=== PATIENT | female | born 1935 | race Caucasian/White ===

== ENCOUNTER → 2016-10-27 | Outpatient (CLI) | payer MEDICARE, OTHER ==
[~2016-10-27] MED LIST: AMLO5TAB2 PO; ASCO-296 PO; BACL20TA71 PO; CALC-652 PO; CELE200C PO; CHOL10003 PO; FISH1CAP29 PO; HYOS0.122 PO; IOHEXOL 300 MG/ML 75ml INJECTION ONE; LEVO25TA41 PO; LOSA1TAB21 PO; LYSI500C PO; METO5TAB2 PO; MORP15TA PO; MORP30TA95 PO; NORMAL SALINE 100 ML ONE; OMEP40CA52 PO; POTA20TA68 PO; RED600CA2 PO; SALINE FLUSH 10ml SYRINGE ONE; SENN1TAB7 PO; SERT25TA5 PO; VITA1CAP64 PO; [UNRECOGNIZED DRUG - CODE] BOTH EYES
[2016-10-27 13:55] LABS: ANION GAP 7 MEQ/L (5-15); BUN/CREATININE RATIO 20 RATIO (6-26); CALCIUM 9.2 MG/DL (8.4-10.2); CHLORIDE 104 MEQ/L (98-107); CO2 - CARBON DIOXIDE 31 MEQ/L (22-30); CREATININE 0.8 MG/DL (0.7-1.2); GLOMERULAR FILTRATION RATE 69; GLUCOSE 104 MG/DL (65-110); SODIUM 142 MEQ/L (134-144)
--- NOTE | 2016-10-27 15:28 | DI ---
Indication: ITS.REASON: N28.9 Disorder of kidney and ureter, unspecified PROCEDURE: CT RENAL W/WO CONTRAST: Encounter: Subsequent Comparison: CT abdomen dated April 12, 2016 and October 02, 2015 Technique: Axial CT images were performed through the abdomen and pelvis before and after the administration of intravenous contrast. Delayed postcontrast images were also performed. Coronal and sagittal 2-dimensional reformats. Automated Exposure Control and Iterative Reconstruction dose reducing techniques were utilized. Contrast: Omnipaque 300 75 mL Findings: Coronary artery calcifications. Noncontrast images show clear lung bases. No renal stone disease. No definite ureteral stone. Numerous pelvic phleboliths. Postcontrast images show normal enhancement of the liver. Mild intrahepatic bile duct dilatation likely related to age and prior cholecystectomy. The spleen, pancreas and adrenal glands are within normal limits. The right kidney enhances normally. There is a small exophytic enhancing mass arising from the medial inferior aspect of the left kidney measuring 1.7 cm in craniocaudal dimension on coronal image #28. This is stable dating back to October 02, 2015. No abdominal or pelvic lymphadenopathy. Bladder is grossly normal. Uterus is absent. No free fluid. No evidence of a bowel obstruction. Bone windows show degenerative changes and scoliosis in the spine. Delayed postcontrast images show symmetric excretion of contrast by both renal collecting systems. No filling defects or masses appreciated. The ureters are normal in course and caliber. The urinary bladder appears normal. Impression: Stable size and appearance of the presumed left renal cell carcinoma. No evidence for metastatic disease in the abdomen or pelvis. .
== END ==
LOC: IMA 13:18
PROVIDERS: ATTEND Urology
DX: N28.89 Other specified disorders of kidney and ureter (principal); N28.9 Disorder of kidney and ureter, unspecified
CPT/HCPCS: 36415; 74178; 80048; J7050; Q9967

== ENCOUNTER → 2016-12-01 | Outpatient (CLI) | payer MEDICARE, OTHER ==
[~2016-12-01] MED LIST changes: +CIPR-280 PO; +HYDR2TAB7 PO; -IOHEXOL 300 MG/ML 75ml INJECTION ONE; +LOSA100T44 PO; -NORMAL SALINE 100 ML ONE; +RANI150T7 PO; -SALINE FLUSH 10ml SYRINGE ONE
== END ==
LOC: LABN 11:29
PROVIDERS: ATTEND Nurse Practitioner
DX: R19.7 Diarrhea, unspecified (principal)
CPT/HCPCS: 87507

== ENCOUNTER 2016-12-04 16:31 | Observation (INO) | payer MEDICARE, OTHER ==
[~2016-12-04] VITALS: Ht 152.4 cm; Wt 62.6 kg
[~2016-12-04 16:31] MED LIST changes: -CIPR-280 PO; -HYDR2TAB7 PO; -LOSA100T44 PO; -RANI150T7 PO
--- OUTSIDE RECORDS SUMMARY | 2016-12-04 16:34 | XMS REPORT | Continuity of Care Document ---
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 Visit Date/Time Discharge Status Pt. Type Provider Facility Loc./Unit Complaint [id number] 03/01/2012 09:45:00 2011 13:45:00 DIS Outpatient Girma Hallman MD [facility] on [address]
--- OUTSIDE RECORDS SUMMARY | 2016-12-04 16:34 | XMS REPORT | Referral Summary ---
Author Organization Unknown Address Unknown Phone Unavailable Care Team Providers Care Performance Makeup Artist Name Role Phone Omkar Scanlon Primary Care Physician [phone] Encounter VC Date(s): 09/29/14 - 09/29/14 [facility], [address] [place] [address] Discharge Diagnosis: Depression Discharge Diagnosis: GERD without esophagitis Discharge Diagnosis: Benign essential HTN Discharge Diagnosis: Constipation Discharge Diagnosis: Insomnia Discharge Diagnosis: Acute diarrhea Discharge Diagnosis: Restless legs syndrome (RLS) Discharge Diagnosis: Adult hypothyroidism Discharge Disposition: Home or Self Care Attending Physician: Toribio Brito MD Admitting Physician: Toribio Brito MD Referring Physician: Pepito Scanlon Vital Signs Most recent to 1 oldest [Reference Range]: Temperature Tympanic 36.8 degC [36.6-38.1 degC] (09/29/14 7:25 PM) Apical Heart Rate 76 bpm [60-100 bpm] (09/29/14 7:25 PM) Blood Pressure 138/82 mmHg [90-140/60-90 mmHg] (09/29/14 7:25 PM) Most recent to 1 oldest [Reference Range]: SpO2 97 % (09/29/14 7:25 PM) Problem List Condition Effective Dates Status Health Status Informant Constipation(Confirm Active ed) Depression(Confirmed Active ) GERD without Active esophagitis(Confirme d) Adult Active hypothyroidism(Confi rmed) Allergies, Adverse Reactions, Alerts Substance Reaction Severity Status Flagyl Active Medications Ambien 5 mg oral tablet 1 tabs, Oral, q12hr, as needed for sleep, # 2 tabs, 0 Refill(s) Start Date: 09/29/14 Stop Date: 09/30/14 Status: Ordered amLODIPine 5 mg oral tablet 1 tabs, Oral, Daily, # 30 tabs, 0 Refill(s) Start Date: 09/29/14 Status: Ordered ascorbic acid 0 Refill(s) Start Date: 09/29/14 Status: Ordered Aspirin Low Dose mg, Oral, Daily, 0 Refill(s) Start Date: 09/29/14 Status: Ordered baclofen 20 mg oral tablet 1 tabs, Oral, TID, # 270 tabs, 0 Refill(s) Start Date: 09/29/14 Status: Ordered Calcium 600+D tabs, Oral, TID, 0 Refill(s) Start Date: 09/29/14 Status: Ordered CeleBREX 200 mg oral capsule 1 caps, Oral, Daily, # 30 caps, 0 Refill(s) Start Date: 09/29/14 Status: Ordered docusate sodium 0 Refill(s) Start Date: 09/29/14 Status: Ordered Fish Oil 500 mg oral capsule 2 caps, Oral, BID, # 130 caps, 0 Refill(s) Start Date: 09/29/14 Status: Ordered levothyroxine 25 mcg (0.025 mg) oral tablet 1 tabs, Oral, Daily, # 30 tabs, 0 Refill(s) Start Date: 09/29/14 Status: Ordered losartan-hydrochlorothiazide 100 mg-12.5 mg oral tablet 1 tabs, Oral, Daily, # 30 tabs, 0 Refill(s) Start Date: 09/29/14 Status: Ordered lysine 500 mg oral tablet 1 tabs, Oral, Daily, # 100 tabs, 0 Refill(s) Start Date: 09/29/14 Status: Ordered morphine 15 mg oral tablet 1 tabs, Oral, q6hr, as needed for pain, 0 Refill(s) Start Date: 09/29/14 Status: Ordered omeprazole 20 mg oral delayed release tablet tabs, Oral, Daily, 0 Refill(s) Start Date: 09/29/14 Status: Ordered sertraline 50 mg oral tablet 1 tabs, Oral, Daily, # 30 tabs, 0 Refill(s) Start Date: 09/29/14 Status: Ordered Results No data available for this section Immunizations No data available for this section Procedures No data available for this section Social History Social History Type Response Smoking Status Never smoker Assessment and Plan Extracted from: Title: Ambulatory Patient Education Author: Toribio Brito MD Date: 09/29/14 Family Medicine Diarrhea Diarrhea is frequent loose and watery bowel movements. It can cause you to feel weak and dehydrated. Dehydration can cause you to become tired and thirsty, have a dry mouth, and have decreased urination that often is dark yellow. Diarrhea is a sign of another problem, most often an infection that will not last long. In most cases, diarrhea typically lasts 23 days. However, it can last longer if it is a sign of something more serious. It is important to treat your diarrhea as directed by your caregive to lessen or prevent future episodes of diarrhea. CAUSES Some common causes include: Gastrointestinal infections caused by viruses, bacteria, or parasites. Food poisoning or food allergies. Certain medicines, such as antibiotics, chemotherapy, and laxatives. Artificial sweeteners and fructose. Digestive disorders. HOME CARE INSTRUCTIONS Ensure adequate fluid intake (hydration ): have 1 cup (8 oz) of fluid for each diarrhea episode. Avoid fluids that contain simple sugars or sports drinks , fruit juices, whole milk products, and sodas. Your urine should be clear or pale yellow if you are drinking enough fluids. Hydrate with an oral rehydration solution that you can purchase at pharmacies, retail stores, and online. You can prepare an oral rehydration solution at home by mixing the following ingredients together: tsp table salt. tsp baking soda. tsp salt substitute containing potassium chloride. 1 tablespoons sugar. 1 L (34 oz) of water. Certain foods and beverages may increase the speed at which food moves through the gastrointestinal (GI) tract. These foods and beverages should be avoided and include: Caffeinated and alcoholic beverages. High-fiber foods, such as raw fruits and vegetables, nuts, seeds, and whole grain breads and cereals. Foods and beverages sweetened with sugar alcohols, such as xylitol, sorbitol, and mannitol. Some foods may be well tolerated and may help thicken stool including: Starchy foods, such as rice, toast, pasta, low-sugar cereal, oatmeal, grits, baked potatoes, crackers, and bagels. Bananas. Applesauce. Add probiotic-rich foods to help increase healthy bacteria in the GI tract , such as yogurt and fermented milk products. Wash your hands well after each diarrhea episode. Only take [id number] or prescription medicines as directed by your caregiver. Take a warm bath to relieve any burning or pain from frequent diarrhea episodes. SEEK IMMEDIATE MEDICAL CARE IF: You are unable to keep fluids down. You have persistent vomiting. You have blood in your stool, or your stools are black and tarry. You do not urinate in 68 hours, or there is only a small amount of very dark urine. You have abdominal pain that increases or localizes. You have weakness, dizziness, confusion, or lightheadedness. You have a severe headache. Your diarrhea gets worse or does not get better. You have a fever or persistent symptoms for more than 23 days. You have a fever and your symptoms suddenly get worse. MAKE SURE YOU: Understand these instructions. Will watch your condition. Will get help right away if you are not doing well or get worse. Document Released: 07/06/2003 Document Revised: 07/02/2013 Document Reviewed: [employer] Patient Information 2014 xiao qu wu you. No follow up information was provided. Extracted from: Title: Office Visit Note Author: oTribio Brito MD Date: 09/29/14 Assessment/Plan Acute diarrhea Stop all otc meds for now.Refused ER. Adult hypothyroidism This issue is stable and appropriate refills, lab, and f/ u have been discussed. Benign essential HTN This issue is stable and appropriate refills, lab, and f/ u have been discussed. Constipation Stop all otc meds. Should consider lab if not improving. Check TSH, etc, discussed. Depression This issue is stable and appropriate refills, lab, and f/u have been discussed. GERD without esophagitis This issue is stable and appropriate refills, lab, and f/u have been discussed. Insomnia Insists on meds. High risk for falling. Trial of ambien 5mg po q12 prn total of only two pills given. Family should stay with her at her apartment. To ER if worse in any way. Restless legs syndrome (RLS) Insisting on meds. RLS started after otc tylenol pm. Insists on meds to help her sleep. The patient has family members present who are agreeable with today's plan and have no additional concerns or requests. Orders: zolpidem, 1 tabs, Oral, q12hr, as needed for sleep, # 2 tabs, 0 Refill (s)
--- OUTSIDE RECORDS SUMMARY | 2016-12-04 16:34 | XMS REPORT | Continuity of Care Document ---
Author Author [facility] Organization [facility] Address Unknown Phone Unavailable Support Name Relationship Address Phone HAL VYAS MD Caregiver [address] [place] [phone] LEIGHTON STOCK MD Caregiver [address] [place] [address] [place] [phone] ABBE WIGGINS Next Of Kin [address] [place], [place] [id number] Insurance Providers Payer Name Policy Number Subscriber Name Relationship Medicare [id number] Opal Welch 16 Self [place] [id number] Opal Welch 18 Self Advance Directives Directive Response Recorded Date/Time Advanced Directives Type None 12/15/13 11:17am Ordered Resuscitation Status Full Code 12/16/13 5:21pm Problems Medical Problems Problem Onset Date Status Diplopia Unknown Active Hypertension Unknown Active Diplopia Unknown Active Medications Medication Dose Route Sig Days/Qty Instructions Order Date Discontinued Date Status Olmesartan/Hydrochlorothiazide 2 Tab PO DAILY 11/18/08 03/16/09 Discontinued Fish Oil/[place]-3 Fatty Acids 1 Cap PO TWICE A DAY 03/17/09 Active Potassium Chloride 20 Meq PO DAILY 11/18/08 03/16/09 Discontinued Levothyroxine Sodium 25 Mcg PO DAILY 03/17/09 Active Lysine 500 Mg PO DAILY 03/17/09 Active Hydrocodone Bit/Acetaminophen 1 Tab PO BID PRN 11/18/08 03/16/09 Discontinued Magnesium 400 Mg PO DAILY 03/17/09 03/31/11 Discontinued Esomeprazole Mag Trihydrate 40 Mg PO DAILY 11/18/08 03/16/09 Discontinued Zinc 50 Mg PO DAILY 03/17/09 03/31/11 Discontinued Amlodipine Besylate 5 Mg PO BEDTIME 03/17/09 02/07/12 Discontinued Guar Gum 1 G PO BEDTIME 03/17/09 03/31/11 Discontinued Tetrahydrz/Dext 70/Peg 400/Pvp 1-2 OP NEEDED 03/17/09 Active Hydrocodone Bit/Acetaminophen 1 Tab PO NEEDED 03/17/09 03/31/11 Discontinued [Vitamin D] PO DAILY 03/17/09 11/13/11 Discontinued Ascorbic Acid 500 Mg PO TWICE A DAY 03/17/09 Active Pantoprazole Sodium 40 Mg PO DAILY 03/17/09 03/31/11 Discontinued [Pristiq] 50 Mg PO DAILY 03/17/09 11/13/11 Discontinued Meloxicam 7.5 Mg PO TWICE A DAY 03/17/09 Active Lecithin 400 Mg PO DAILY 03/17/09 11/13/11 Discontinued Losartan/Hydrochlorothiazide 1 Tab PO DAILY 03/17/09 Active Fentanyl 1 Patch TD Q 72 HRS 03/17/09 03/31/11 Discontinued Omeprazole 40 Mg PO DAILY 03/31/11 Active [morphine] 03/31/11 11/13/11 Discontinued Red Yeast Rice Extract 600 Mg PO DAILY 11/13/11 Active Baclofen 20 Mg PO THREE TIMES A DAY 11/13/11 Active Hydromorphone Hcl 2 Mg PO TWICE A DAY 11/14/11 Active Sertraline Hcl 25 Mg PO BEDTIME 11/14/11 Active Potassium Chloride 20 Meq PO TWICE A DAY 11/14/11 Active Cholecalciferol 1,000 Unit PO DAILY 11/14/11 Active Docusate Sodium 100 Mg PO DAILY 11/14/11 Active Morphine Sulfate 15 Mg PO FOUR TIMES DAILY 11/14/11 Active Amlodipine Besylate 10 Mg PO BEDTIME 02/07/12 Active Vitamin B Complex 1 Cap PO DAILY 12/15/13 Active Calcium Carbonate 1 Tab PO THREE TIMES A DAY 12/15/13 Active Celecoxib 1 Cap PO TWICE A DAY 06/27/14 Active Social History Social History Problem Response Recorded Date/Time Smoking Status Never smoker 12/15/2013 11:17am Chewing Tobacco Status No 12/15/2013 11:17am Hx Substance Use No 06/27/2014 1:02pm Hx Alcohol Use No 06/27/2014 1:02pm Has the pt used tobacco in the last 12 months No 12/15/2013 11:17am Query Response Start Date Stop Date Smoking Status Never smoker Hospital Discharge Instructions No hospital discharge instructions. Plan of Care No plan of care. Functional Status Query Response Date Recorded Physical Hygiene Self June 27, 2014 1:02pm Disabilities Visual June 27, 2014 1:02pm Devices Used Glasses June 27, 2014 1:02pm Dressing Self June 27, 2014 1:02pm Ambulation Self June 27, 2014 1:02pm Diet Self June 27, 2014 1:02pm Mental Status Alert Oriented June 27, 2014 1:02pm Disabilities Visual June 27, 2014 1:02pm Devices Used Glasses June 27, 2014 1:02pm Physical Hygiene Self June 27, 2014 1:02pm Dressing Self June 27, 2014 1:02pm Ambulation Self June 27, 2014 1:02pm Diet Self June 27, 2014 1:02pm Allergies, Adverse Reactions, Alerts Allergen Type Severity Reaction Status Last Updated Metronidazole Allergy Unknown Active 06/27/14 Immunizations Name Given Type Hx Influenza Vaccination Y 05/12 Historical Hx Pneumococcal Vaccination Y 2005 Historical Hx Tetanus, Diptheria, Pertussis Y 2009 Historical Hx Influenza Vaccination Y 05/12 Historical Hx Tetanus, Diptheria, Pertussis Y 2009 Historical Vital Signs Acute Vital Signs Vital Response Date/Time Temperature (Fahrenheit) 98.6 deg F (96.8 - 99.1) Temperature (Calculated Celsius) 37.09742 degrees C (36.0 - 37.3) Pulse Rate (adult) 64 bpm (60 - 100) Respiratory Rate 16 breaths/min (10 - 20) O2 Sat by Pulse Oximetry 94 % (90 - 100) Blood Pressure 168/73 mm Hg Height 5 ft 0 in Weight 146 lb Body Mass Index 28.0 kg/m^2 Results Test Source Date Result Interp. Ref. Range Comments Activated Partial Thromboplast Time February 06, 2012 4:48pm 33.1 SEC N 24- 36 Alanine Aminotransferase (ALT/SGPT) June 27, 2014 1:30pm 27 U/L N 9- 52 Albumin June 27, 2014 1:30pm 3.7 G/DL N 3.5-5.0 Albumin/Globulin Ratio June 27, 2014 1:30pm 1.0 RATIO L 1.1-2.2 Alkaline Phosphatase June 27, 2014 1:30pm 71 U/L N 38-126 Amylase Level March 31, 2011 1:55am 87 U/L N 30-110 Anion Gap June 27, 2014 1:30pm 5 MEQ/L N 5-15 Aspartate Amino Transf (AST/SGOT) June 27, 2014 1:30pm 28 U/L N 14- 36 B-Type Natriuretic Peptide May 11, 2009 9:55pm 30 PG/ML N 15-100 BUN/Creatinine Ratio June 27, 2014 1:30pm 23 RATIO N 6-26 Basophils # (Auto) June 27, 2014 1:30pm 0.0 T/MM3 N 0-0.2 Basophils (%) (Auto) June 27, 2014 1:30pm 0.5 % N 0-2 Blood Urea Nitrogen June 27, 2014 1:30pm 14.0 MG/DL N 7-17 Calcium Level June 27, 2014 1:30pm 9.3 MG/DL N 8.4-10.2 Calculated Osmolality June 27, 2014 1:30pm 265 MOSM/KG N 261-280 Carbon Dioxide Level June 27, 2014 1:30pm 27 MEQ/L N 22-30 Chloride Level June 27, 2014 1:30pm 105 MEQ/L N 98-107 Conjugated Bilirubin February 06, 2012 4:48pm 0.00 MG/DL N 0.00-0.30 Creatine Kinase MB March 31, 2011 5:31pm 2.6 NG/ML N 0-3.4 Creatinine June 27, 2014 1:30pm 0.6 MG/DL L 0.7-1.2 Eosinophils # (Auto) June 27, 2014 1:30pm 0.1 T/MM3 N 0-0.5 Eosinophils (%) (Auto) June 27, 2014 1:30pm 1.4 % N 0-4 Free Thyroxine October 19, 2008 10:24pm 1.14 NG/DL N 0.78-2.19 Globulin June 27, 2014 1:30pm 3.7 G/DL H 2.4-3.6 Glucose Level June 27, 2014 1:30pm 98 MG/DL N 65-110 Hematocrit June 27, 2014 1:30pm 38.1 % N 36-46 Hemoglobin June 27, 2014 1:30pm 12.5 GM/DL N 12-16 Ionized Calcium (Measured) November 14, 2011 10:00am 1.11 MMOL/L L 1.12- 1.32 Lipase March 31, 2011 1:55am 42 U/L N 23-300 Lymphocytes # (Auto) June 27, 2014 1:30pm 1.4 T/MM3 N 1-4.8 Lymphocytes (%) (Auto) June 27, 2014 1:30pm 38.9 % N 23-45 Mean Corpuscular Hemoglobin June 27, 2014 1:30pm 32.6 UUG N 26-34 Mean Corpuscular Hemoglobin Concent June 27, 2014 1:30pm 32.8 GM/DL N 31-37 Mean Corpuscular Volume June 27, 2014 1:30pm 99.2 UM3 N 80-100 Mean Platelet Volume June 27, 2014 1:30pm 10.5 UM3 N 9.4-12.4 Monocytes # (Auto) June 27, 2014 1:30pm 0.2 T/MM3 N 0-0.8 Monocytes (%) (Auto) June 27, 2014 1:30pm 6.5 % N 0-9.0 Neutrophils # (Auto) June 27, 2014 1:30pm 2.0 T/MM3 N 1.8-7.7 Neutrophils (%) (Auto) June 27, 2014 1:30pm 52.7 % N 33-66 Platelet Count June 27, 2014 1:30pm 152 T/MM3 N 130-400 Potassium Level June 27, 2014 1:30pm 4.2 MEQ/L N 3.6-5 Prothromb Time International Ratio February 06, 2012 4:48pm 0.97 N 0.86- 1.10 THERAPUTIC RANGE=2.00-3.00 FOR ANTI-THROMBOSIS THERAPUTIC RANGE=2.50- 3.50 FOR IMPLANTED VALVE RDW Standard Deviation June 27, 2014 1:30pm 46.5 FL N 36.9-50.2 Red Blood Count June 27, 2014 1:30pm 3.84 M/MM3 L 4.00-5.20 Sodium Level June 27, 2014 1:30pm 137 MEQ/L N 134-144 Tests Not Done October 19, 2008 10:24pm Not done - Has specimen been collected/obtained? Y Thyroid Stimulating Hormone (TSH) June 27, 2014 1:30pm 0.59 MIU/L N 0.47-4.68 Total Bilirubin June 27, 2014 1:30pm 0.50 MG/DL N 0.20-1.30 Total Protein June 27, 2014 1:30pm 7.4 G/DL N 6.3-8.2 Troponin I February 07, 2012 5:00am < 0.012 ng/ml 0-0.12 Unconjugated Bilirubin February 06, 2012 4:48pm 0.00 MG/DL N 0.00-1.10 Urine Bilirubin February 06, 2012 6:15pm Negative - Has specimen been collected/obtained? Y Urine Blood February 06, 2012 6:15pm Negative - Has specimen been collected/obtained? Y Urine Collection Type February 06, 2012 6:15pm Voided - Has specimen been collected/obtained? Y Urine Color February 06, 2012 6:15pm Yellow - Has specimen been collected /obtained? Y Urine Glucose (UA) February 06, 2012 6:15pm Negative - Has specimen been collected/obtained? Y Urine Ketones February 06, 2012 6:15pm Negative - Has specimen been collected/obtained? Y Urine Leukocyte Esterase February 06, 2012 6:15pm Negative - Has specimen been collected/obtained? Y Urine Nitrite February 06, 2012 6:15pm Negative - Has specimen been collected/obtained? Y Urine Protein February 06, 2012 6:15pm Negative - Has specimen been collected/obtained? Y Urine Specific [place] February 06, 2012 6:15pm 1.010 L - Has specimen been collected/obtained? Y Urine Turbidity February 06, 2012 6:15pm Clear - Has specimen been collected/obtained? Y Urine Urobilinogen February 06, 2012 6:15pm Normal EU/DL - Has specimen been collected/obtained? Y Urine pH February 06, 2012 6:15pm 8.0 - Has specimen been collected/ obtained? Y White Blood Count June 27, 2014 1:30pm 3.7 T/MM3 L 4.5-11.0 Chemistry Specimen Hemolysis June 27, 2014 1:30pm 20 N 0-25 0-25: No Hemolysis.26-70: Slight Hemolysis - can falsely elevate K and Urine Protein. 71-285: Moderate Hemolysis - can falsely elevate K, Troponin I, CA 19-9, PTH, CSF GLucose, and Urine Protein, and can falsely decrease Phenytoin. 286-999: Gross Hemolysis - can falsely elevate K, Troponin I, CA 19-9, PTH, CSF Glucose, and Urine Protine, and can falsely decrease Phenytoin. Recommend specimen recollection. EKG May 11, 2009 9:48pm Complete - Turbidity June 27, 2014 1:30pm < 20 0-20 Glomerular Filtration Rate Calc June 27, 2014 1:30pm 96 - Immature Granulocyte # (Auto) June 27, 2014 1:30pm 0.00 T/MM3 N 0.00 -0.03 Immature Granulocyte % (Auto) June 27, 2014 1:30pm 0.0 % N 0.0-0.5 Icterus Index June 27, 2014 1:30pm < 2 0-7 TX-Mrf-D-Type Natriuretic Peptide February 06, 2012 4:48pm 401 PG/ML H 0- 175 Rule in cut points: <50 years old=450; 50-75 years old=900; >75 years old=1800; When utilizing ProBNP rule-in cut points, adjustment for impaired renal function is typically not required. Urine Microscopic Not Indicated February 06, 2012 6:15pm Not indicated - Has specimen been collected/obtained? Y Helicobacter pylori Rapid Urease Gastric Biopsy December 17, 2013 7:52am Procedures No known history of procedures. Encounters Encounter Location Date/Time Departed Emergency Room [facility] 06/27/14 12:39pm Recent Diagnosis
--- OUTSIDE RECORDS SUMMARY | 2016-12-04 16:42 | XMS REPORT | Continuity of Care Document ---
Author Author [facility] Organization [facility] Address Unknown Phone Unavailable Support Name Relationship Address Phone HAL VYAS MD Caregiver [address] [place] [phone] LEIGHTON STOCK MD Caregiver [address] [place] [address] [place] [phone] ABBE WIGGINS Next Of Kin [address] [place], [place] [id number] Insurance Providers Payer Name Policy Number Subscriber Name Relationship Medicare [id number] Opal Welch 18 Self [place] [id number] Opal Welch 16 Self Advance Directives Directive Response Recorded Date/Time Advanced Directives Type None 12/15/13 11:17am Ordered Resuscitation Status Full Code 12/16/13 5:21pm Problems Medical Problems Problem Onset Date Status Diplopia Unknown Active Hypertension Unknown Active Diplopia Unknown Active Medications Medication Dose Route Sig Days/Qty Instructions Order Date Discontinued Date Status Olmesartan/Hydrochlorothiazide 2 Tab PO DAILY 11/18/08 03/16/09 Discontinued Fish Oil/[place]-3 Fatty Acids 1 Cap PO TWICE A [...] F (96.8 - 99.1) Temperature (Calculated Celsius) 37.58241 degrees C (36.0 - 37.3) Pulse Rate [...] Has specimen been collected/obtained? Y Urine Specific [place] February 06, 2012 6:15pm 1.010 L - [...] June 27, 2014 1:30pm < 2 0-7 AK-Rlo-V-Type Natriuretic Peptide February 06, 2012 4:48pm 401 [...] Encounters Encounter Location Date/Time Departed Emergency Room [facility] 06/27/14 12:39pm Recent Diagnosis
--- OUTSIDE RECORDS SUMMARY | 2016-12-04 16:42 | XMS REPORT | Continuity of Care Document ---
Author Author [facility] Organization [facility] Address Unknown Phone Unavailable Allergies Active Description Code Type Severity Reaction Onset Reported/Identified Relationship to Patient Clinical Status Yes Flagyl Drug Allergy Eczema (rash) 03/01/2012 Medications Problems Date Dx Coded Attending Type Code Diagnosis Diagnosed By 03/01/2012 Girma Hallman MD Final 244.9 HYPOTHYROIDISM NOS 03/01/2012 Girma Hallman MD Final 401.1 BENIGN HYPERTENSION 03/01/2012 Girma Hallman MD Final 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 Visit Date/Time Discharge Status Pt. Type Provider Facility Loc./Unit Complaint [id number] 03/01/2012 09:45:00 2011 13:45:00 DIS Outpatient Girma Hallman MD [facility] on [address]
--- NOTE | 2016-12-04 16:44 | ERPDOC ---
Departure Disposition Decision Date: December 04, 2016 Disposition Decision Time: 19:30 Disposition: 02 TO OBS [facility] [place] Impression Impression Impression: Primary Impression: Fall Encounter type: initial encounter Qualified Codes: W19.XXXA - Unspecified fall, initial encounter Additional Impressions: Finger laceration Encounter type: initial encounter Qualified Codes: S61.219A - Laceration without foreign body of unspecified finger without damage to nail, initial encounter Confusion Severity: Moderate Condition: Stable Seen By: Mid-level only Patient Instructions: Finger Laceration (ED) Problems/Meds/Labs Reviewed?: Yes Medications reviewed and manag: Yes Additional Instructions: Have the sutures taken out in 7-10 days with your primary care provider. Your labs and CT today are normal. Continue with your home medications as prescribed. If you have any other issues/concerns then follow up with your primary care provider. Follow up care ordered?: Yes Mental Status: Alert HPI - Abdominal Pain General Chief Complaint: Nausea,Vomiting,Diarrhea Stated Complaint: DIARRHEA Time Seen by Provider: 16:35 Source: patient History/Exam Limitations: no limitations HPI - Abdominal Pain Initial Comments She lives at [facility] in [facility]. She is in an independent living home. Has been having some increased diarrhea over the last several days. She did see her PCP on Sunday and was given an antibiotic to take. She does have a history of chronic GI issues. She was doing better yesterday. Today she has had several falls at home and the maintenance of way foreman found that she was not doing very well and had the staff call EMS. She is found to be slow to respond. Was given 50mcg of Fentanyl per EMS en route. Arrives in collar on [facility] board. Is alert but does have a slow response time with questioning. Occurred At: home Onset: Gradual Duration: other (Over the last several days) Activities at Onset: none Associated Symptoms: DENIES: back pain, chest pain, diaphoresis, fatigue, fever /chills, headache, heartburn, nausea/vomiting, rash, shortness of breath, swelling/mass in abdomen, syncope, weakness Hx of Similar Symptoms: No Allergies: Coded Allergies: metronidazole (Verified Allergy, Unknown, 12/04/16) Past History Past Medical History Metabolic: hypertension Cardiac: CAD Surgical History General: appendix, back, gallbladder, neck, tonsils Reproductive/: hysterectomy Vaccines Hx Influenza Vaccination: Yes (05/12) Hx Pneumococcal Vaccination: Yes (2005) Hx Tetanus, Diptheria, Pertuss: Yes (2009) Social History Smoking Status: Never smoker Substance Use Type: does not use Alcohol Intake: none Review of Systems Unable to Obtain ROS Due to: clinical condition Constitutional Constitutional: fatigue, weakness GI Lower Abdomen: diarrhea Physical Exam General General Nourishment: well nourished, well developed, appears stated age, no acute distress, adult General Body Habitus: well groomed Vitals and Pain First Documented Vital Signs Date Time Temp Pulse Resp B/P Pulse Ox O2 Delivery O2 Flow Rate FiO2 12/04/16 16:31 99.0 74 18 204/91 94 12/04/16 17:00 Room Air Weight: Kilograms: Height (feet): 5 Height (inches): 0.5 Triage Pain Scale: RN VS reviewed by Provider: Yes Normal Exams: Eyes: Pupils are PERRLA w/ EOMI, No scleral icterus, irritation, or foreign bodies noted ENMT: No facial trauma, nasal exudates, pharyngeal erythema, or exudates are noted Neck: Full range of motion, without adenopathy, JVD, bruits or thyromegaly Chest/Resp: Clear all magdaleno, with good airflow, and symmetry bilaterally CV: Regular rate and rhythm, without murmur or gallop, Pulses 2+ all extremities, capillary refill, <2 seconds all ext., no pedal edema noted Abdomen: Bowel sounds positive, soft, non-tender, non-distended, no hepatosplenomegaly, masses or bruits noted Lymphatic: No lymphadenopathy, or lymphedema noted Integumentary: No rashes, hives, or bruising noted Neurologic: Patient is alert, and oriented, cranial nerves, motor/sensory/ cerebellar, exams w/o gross deficits, to observation Psychiatric: Patient exhibits, appropriate attention, emotion and affect Integumentary (brief) Integumentary Brief: FOUND: other (Small laceration on the left distal middle finger) Neurologic GCS Adult : GCS Eye Opening: (4)Spontaneous GCS Verbal: (5)Oriented GCS Motor: (6)Obeys Commands Differential Diagnoses Considering: Concussion, CVA - Thrombotic, CVA - Hemmorhagic, Dehydration, Food Poisoning, Gastroenteritis, Hyponatremia, Hypokalemia, Hypoglycemia, Other (ICH, laceration, fracture, ) Procedures Laceration/Wound Repair Wound/Laceration Repair : Wound Location: upper extremity (Left middle finder) Wound Length (cm): 1 Depth, Shape: subcutaneous, flap Explored: clean Irrigated: saline Prep: chlorasept Anesthesia: 1% Lidocaine Type of Block: local Repaired With: Sutures Suture Size: 5:0 Suture Type: prolene Number of Sutures: 2 Progress Results/Orders Orders Procedure Category Date Status Time Ct Head W/O Contrast CT 12/04/[address] Cervical Spine W/O CT 12/04/16 Taken Contrast Cbc W/Auto LAB 12/04/16 Complete Diff-Reflex Manual Cmp - Comprehensive LAB 12/04/16 Complete Metabolic Ua, Dip Wreflex LAB 12/04/16 Complete Microsc & Snap Attacher 16:40 Lidocaine 1% PHA 12/04/16 Complete (Xylocaine 1%) 18:00 Morphine Sulfate PHA 12/04/16 Complete (Morphine) 18:00 Normal Saline (Normal PHA 12/04/16 Complete Saline Iv) 19:00 EKG EKG 12/04/16 Logged Troponin I W LAB 12/04/[address] In Facility As: ADMIT 12/04/16 Transmitted Lab Results Laboratory Tests Test 12/04/16 16:38 12/04/16 17:47 White Blood Count 3.4T/MM3 Red Blood Count 3.79M/MM3 Hemoglobin 12.6GM/DL Hematocrit 36.4% Mean Corpuscular Volume 96.0UM3 Mean Corpuscular Hemoglobin 33.2UUG Mean Corpuscular Hemoglobin Concent 34.6GM/DL RDW Standard Deviation 42.6FL Platelet Count 166T/MM3 Mean Platelet Volume 10.4UM3 Immature Granulocyte % (Auto) 0.0% Neutrophils (%) (Auto) 66.6% Lymphocytes (%) (Auto) 28.4% Monocytes (%) (Auto) 4.4% Eosinophils (%) (Auto) 0.3% Basophils (%) (Auto) 0.3% Absolute Immature Granulocyte (auto 0.00T/MM3 Absolute Neutrophils (auto) 2.3T/MM3 Absolute Lymphocytes (auto) 1.0T/MM3 Absolute Monocytes (auto) 0.2T/MM3 Absolute Eosinophils (auto) 0.0T/MM3 Absolute Basophils (auto) 0.0T/MM3 Turbidity < 20 Sodium Level 137MEQ/L Potassium Level 3.8MEQ/L Chloride Level 102MEQ/L Carbon Dioxide Level 25MEQ/L Anion Gap 10MEQ/L Blood Urea Nitrogen 14.0MG/DL Creatinine 0.6MG/DL Glomerular Filtration Rate Calc 95 BUN/Creatinine Ratio 23RATIO Glucose Level 120MG/DL Calculated Osmolality 266MOSM/KG Calcium Level 8.9MG/DL Total Bilirubin 0.60MG/DL Icterus Index < 2 Aspartate Amino Transf (AST/SGOT) 31U/L Alanine Aminotransferase (ALT/SGPT) 26U/L Alkaline Phosphatase 51U/L Troponin I 0.020ng/ml Total Protein 7.3G/DL Albumin 3.8G/DL Globulin 3.5G/DL Albumin/Globulin Ratio 1.1RATIO Chemistry Specimen Hemolysis < 15 Urine Collection Type Cleancatch-midstream Urine Color Yellow Urine Turbidity Clear Urine pH 5.5 Urine Specific [place] 1.010 Urine Protein Negative Urine Glucose (UA) Negative Urine Ketones Negative Urine Blood Negative Urine Nitrite Negative Urine Bilirubin Negative Urine Urobilinogen 0.2EU/DL Urine Leukocyte Esterase Negative Urinalysis Comment Microscopic not ind. Medications Current ED Medications Lidocaine HCl (Xylocaine 1%) 100 mg O ONCE INFIL Last administered on 18:01; Start 12/04/16 at 18:00; Stop 12/04/16 at 18:01; Status DC Morphine Sulfate 4 mg 4 mg O ONCE IV Last administered on 12/04/16 18:01; Start 12/04/16 at 18:00; Stop 12/04/16 at 18:01; Status DC Sodium Chloride 1,000 ml @ 1,000 mls/hr Q1H ONCE IV Last administered on 19:02; Start 12/04/16 at 19:00; Stop 12/04/16 at 19:59; Status DC Sodium Chloride (Normal Saline IV) 1,000 ml @ 100 mls/hr Q10H IV ; Start at 19:34; Status UNV Progress Progress Ct of head and neck are normal today. Patient removed from C collar. Noted small laceration on left middle distal finger with persistent bleeding. Sutures placed. We did try to get her up to the bedside but she was unable to stand on her own for long at all. She does remain confused as well, having short episodes of confusion with lucid moments as well. Did discuss all of this with Dr Griffin and he will admit at this time. CT CT #1: Reason for Exam: fall, decreased LOC CT: Head no contrast Interpretation: Normal CT #2: Reason for Exam: fall, neck pain CT: C-Spine no contrast Interpretation: Normal ANNIA RUIZ APRN December 04, 2016 16:44
--- NOTE | 2016-12-04 16:55 | NUR ---
SPINEBOARD SPINEBOARD REMOVED, PATIENT COMFORT IMPROVED.
--- NOTE | 2016-12-04 16:57 | NUR ---
CT PATIENT TO RADIOLOGY PER CART, STABLE.
[2016-12-04] MEDS ORDERED: LOSA100T44 PO (17:02)
[2016-12-04] MEDS ORDERED: HYDR2TAB7 PO (17:05)
--- NOTE | 2016-12-04 17:12 | NUR ---
RETURN PATIENT BACK FROM RADIOLOGY PER CART. STABLE.
[2016-12-04 17:13] LABS: BASOPHILS % (AUTO) 0.3 % (0-2); EOSINOPHILS % (AUTO) 0.3 % (0-4); HCT - HEMATOCRIT 36.4 % (36-46); HGB - HEMOGLOBIN 12.6 GM/DL (12-16); LYMPHOCYTES % (AUTO) 28.4 % (23-45); MEAN CORPUSCULAR HGB 33.2 UUG (26-34); MEAN CORPUSCULAR HGB CONC(MCHC 34.6 GM/DL (31-37); MEAN PLATELET VOLUME 10.4 UM3 (9.4-12.4); MONOCYTES # (AUTO) 0.2 T/MM3 (0-0.8); MONOCYTES % (AUTO) 4.4 % (0-9.0); NEUTROPHILS #(AUTO)-ABSOLUTE 2.3 T/MM3 (1.8-7.7); NEUTROPHILS % (AUTO) 66.6 % (33-66); RED BLOOD COUNT 3.79 M/MM3 (4.00-5.20); WBC - WHITE BLOOD COUNT 3.4 T/MM3 (4.5-11.0)
[2016-12-04] MEDS ORDERED: RANI150T7 PO (17:13)
[2016-12-04] MEDS ORDERED: CIPR-280 PO (17:13)
[2016-12-04 17:17] LABS: ALBUMIN 3.8 G/DL (3.5-5.0); ALBUMIN/GLOBULIN RATIO 1.1 RATIO (1.1-2.2); ALKALINE PHOSPHATASE 51 U/L (38-126); ALT (SGPT) 26 U/L (9-52); ANION GAP 10 MEQ/L (5-15); AST (SGOT) 31 U/L (14-36); BUN/CREATININE RATIO 23 RATIO (6-26); CALCIUM 8.9 MG/DL (8.4-10.2); CHLORIDE 102 MEQ/L (98-107); CO2 - CARBON DIOXIDE 25 MEQ/L (22-30); CREATININE 0.6 MG/DL (0.7-1.2); GLOMERULAR FILTRATION RATE 95; GLUCOSE 120 MG/DL (65-110); POTASSIUM 3.8 MEQ/L (3.6-5); SODIUM 137 MEQ/L (134-144); TOTAL PROTEIN 7.3 G/DL (6.3-8.2)
[2016-12-04 18:00] LABS: BLOOD, URINE NEGATIVE (NEGATIVE); COLOR,URINE YELLOW (YELLOW); LEUKOCYTE ESTERASE ,URINE NEGATIVE (NEGATIVE); NITRITE,URINE NEGATIVE (NEGATIVE); UROBILINOGEN,URINE 0.2 EU/DL (NORMAL)
[2016-12-04] MEDS ORDERED: MORPHINE SULFATE 4 MG SYRINGE IV ONE (18:00)
[2016-12-04] MEDS ORDERED: LIDOCAINE 1% (10mg/ml) 30ml SDV INFIL ONE (18:00)
--- NOTE | 2016-12-04 18:50 | NUR ---
STATUS ORTHOSTATIC VITALS COMPLETED. PT UNABLE TO STAND THRU THE STANDING BP. PT IS UNABLE TO ATTEMPT TO WALK. NAKUL, PLANT SAFETY ENGINEER NOTIFIED
[2016-12-04] MEDS ORDERED: NORMAL SALINE 1,000 ML IV ONE (19:00)
[2016-12-04] MEDS ORDERED: HYDROMORPHONE 2mg/ml INJECTION IV PRN (19:45)
[2016-12-04] MEDS ORDERED: HYDROCODONE/APAP 5 mg/325 mg TABLET PO PRN (19:45)
[2016-12-04] MEDS ORDERED: ONDANSETRON 4mg/2ml INJECTION IV PRN (19:45)
[2016-12-04] MEDS ORDERED: ACETAMINOPHEN 325 MG TABLET PO PRN (19:45)
--- OUTSIDE RECORDS SUMMARY | 2016-12-04 19:48 | XMS REPORT | Continuity of Care Document ---
Author Author [facility] Organization [facility] Address Unknown Phone Unavailable Support Name Relationship Address Phone HAL VYAS MD Caregiver [address] [place] [phone] LEIGHTON STOCK MD Caregiver [address] [place] [address] [place] [phone] ABBE WIGGINS Next Of Kin [address] [place], [place] [id number] Insurance Providers Payer Name Policy Number Subscriber Name Relationship Medicare [id number] Opal Welch 16 Self [place] [id number] Opal Welch 16 Self Advance Directives Directive Response Recorded Date/Time Advanced Directives Type None 12/15/13 11:17am Ordered Resuscitation Status Full Code 12/16/13 5:21pm Problems Medical Problems Problem Onset Date Status Diplopia Unknown Active Hypertension Unknown Active Diplopia Unknown Active Medications Medication Dose Route Sig Days/Qty Instructions Order Date Discontinued Date Status Olmesartan/Hydrochlorothiazide 2 Tab PO DAILY 11/18/08 03/16/09 Discontinued Fish Oil/Lorenzo-3 Fatty Acids 1 Cap PO TWICE A [...] F (96.8 - 99.1) Temperature (Calculated Celsius) 37.69907 degrees C (36.0 - 37.3) Pulse Rate [...] Has specimen been collected/obtained? Y Urine Specific [place] February 06, 2012 6:15pm 1.010 L - [...] June 27, 2014 1:30pm < 2 0-7 OY-Rsj-[id number]-Type Natriuretic Peptide February 06, 2012 4:48pm 401 [...]
--- OUTSIDE RECORDS SUMMARY | 2016-12-04 19:48 | XMS REPORT | Continuity of Care Document ---
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 Visit Date/Time Discharge Status Pt. Type Provider Facility Loc./Unit Complaint [id number] 03/01/2012 09:45:00 2011 13:45:00 DIS Outpatient Girma Hallman MD Via [facility] on [address]
[2016-12-04] MEDS ORDERED: CIPROFLOXACIN 500 MG TABLET PO SCH (21:00)
--- NOTE | 2016-12-04 21:00 | NUR ---
REPORT CALLED REPORT TO JAKE MORENO
--- NOTE | 2016-12-04 21:15 | NUR ---
TRANSFER. PT IS TRANSFERRED TO [facility] VIA CART BY SPORTS OFFICIAL. FAMILY ACCOMPANIED
--- NOTE | 2016-12-04 21:15 | NUR ---
Admit Pt admitted to 157 at this time via ED bed. Transferred to medical bed with assist x2. Family accompanies pt. Pt alert and answering questions, difficult to find answers at times. Admission process completed by this RN. Cares passed onto primary RNSamreen.
[2016-12-04 21:23] VITALS: BP 183/85; PULSE 75; RESP 18
[2016-12-04 21:29] VITALS: Ht 152.4 cm; Wt 62.6 kg
[2016-12-04] MEDS: NORMAL SALINE 1,000 ML IV SCH (22:18)
--- NOTE | 2016-12-04 23:17 | HPPDOC ---
LAWRENCE VALDEZ MD 12/04/16 2303: HPI - Adult Date DATE: 12/04/16 TIME: 22:56 General Chief Complaint: weakness History of Present Illness Patient is a 81 y/o female that lives at an independent living setting. The patient was apparently "ok" yesterday and today noted to have increased weakness , confusion and falling . the patient had an episode of diarrhea last week which is not unusual for the patient, but it has since resolved. The patient acaudally has a history of chronic constipation from chronic narcotics for pain issues. The patient fell this evening and lacerated her finger. A critical care unit nurse referred her into the ED for evaluation. 2 stitches were placed in her right # 3 finger and workup demonstrated normal labs including a UA. The patient had a normal CT head. The patient has access to multiple narcotics for her back pain. It is not clear if she may have taken more medications than she is suppose to. At this time the patient is to be admitted into the hospital to evaluate her altered mental status and to make further considerations. Past Medical History Past Medical History hypothyoid, chronic back pain, HTN, MVP, CAD, depressin/anxiety, dyslipidemia, GERD, c dif colitis, hepatitis A Surgical History Patient's Surgical History: TAHBSO, TL, bladder suspension, cholycystectomy, appendectomy, c spine fusion, bilateral cataract, knee replacement Current Medications Home Meds Reported Medications Ranitidine HCl (Ranitidine HCl) 150 Mg Tablet, 150 MG PO BID 12/04/16 Ciprofloxacin HCl (Ciprofloxacin HCl) 500 Mg Tablet, 500 MG PO BID started 12/02/16 12/04/16 Hydromorphone HCl (Hydromorphone HCl) 2 Mg Tablet, 2 MG PO QID Y for PAIN 12/04/16 Losartan Potassium (Losartan Potassium) 100 Mg Tablet, 100 MG PO DAILY 12/04/16 Sennosides/Docusate Sodium (Senna-Docusate Sodium Tablet) 1 Each Tablet, 1 TAB PO BID 10/02/15 Metoclopramide HCl (Metoclopramide HCl) 5 Mg Tablet, 5 MG PO HS 10/02/15 Sertraline (Sertraline) 25 Mg Tablet, 25 MG PO HS 10/02/15 Omeprazole (Omeprazole) 40 Mg Capsule.dr, 40 MG PO ACB 10/02/15 Morphine Sulfate (Morphine Sulfate ER) 30 Mg Tablet.er, 30 MG PO BID 10/02/15 Amlodipine Besylate (Amlodipine Besylate) 5 Mg Tablet, 5 MG PO DAILY 10/02/15 Celecoxib (Celebrex) 200 Mg Capsule, 200 MG PO BID 06/27/14 Calcium Carbonate (Calcium) 1 Tab Tablet, 1 TAB PO BID 12/15/13 Vitamin B Complex (Vitamin B Complex) 1 Cap Capsule, 1 CAP PO DAILY 12/15/13 Morphine Sulfate (Morphine Sulfate) 15 Mg Tablet, 15 MG PO NOON 11/14/11 Cholecalciferol (Vitamin D) 1,000 Unit Capsule, 1000 UNIT PO DAILY 11/14/11 Potassium Chloride (Klor-Con M20) 20 Meq Tab.prt.sr, 20 MEQ PO BID 11/14/11 Baclofen (Baclofen) 20 Mg Tablet, 20 MG PO BID 11/13/11 Red Yeast Rice Extract (Red Yeast Rice) 600 Mg Capsule, 600 MG PO DAILY 11/13/11 Ascorbic Acid (Vitamin C) 500 Mg Tablet, 500 MG PO BID 03/17/09 Tetrahydrz/Dext 70/Peg 400/Pvp (Eye Drops) 15 Ml Drops, 1-2 DROP BOTH EYES BID Y for PRN ORDERS 03/17/09 Lysine (L-Lysine) 500 Mg Capsule, 500 MG PO DAILY 03/17/09 Levothyroxine Sodium (Levoxyl) 25 Mcg Tablet, 25 MCG PO ACB 03/17/09 Fish Oil/[place]-3 Fatty Acids (Fish Oil 1,000 Mg Capsule) 1 Cap Capsule, 1 CAP PO BID 03/17/09 Allergies: Coded Allergies: metronidazole (Verified Allergy, Unknown, 12/04/16) Family History Family History: non contributory Social History Smoking Status: Never smoker Substance Use Type: does not use Alcohol Intake: none Advance Directives: Yes DPOA for Healthcare Only (Willow Shipley, daughter) Review of Systems All Other Systems All Other Systems: Reviewed (remainder of 10-point ROS Neg.) Comments no headache, no change in vision, no sore throat,no troubles swallowing, no choking, no fever, chills or sweats, no neck pain, no chest pain, no shortness of breath, slight nausea, no vomiting, normal po intake, constipated now, generally weak without focal concerns. right finger with injury from fall. patient not tracking normal per family. this is a change from 24 hours ago. Physical Exam General General Nourishment: well nourished, well developed, thin, apparent age, adult General Body Habitus: disheveled Vital Signs Vital Signs Date Time Temp Pulse Resp B/P Pulse Ox O2 Delivery O2 Flow Rate FiO2 12/04/16 22:27 16 12/04/16 21:23 75 183/85 Room Air 12/04/16 21:13 100 12/04/16 16:31 99.0 Height (Feet): 5 Height (Inches): 0.00 Telemetry Rhythm: Sinus Rhythm Eyes Brief: FOUND: EOMI, foreign body, NOT FOUND: other, scleral icterus Neck Brief: FOUND: midline, NOT FOUND: JVD, nuchal rigidity, other, spasm, tenderness, tracheal deviation Respiratory Brief: FOUND: clear all magdaleno, equal bilaterally, symmetrical, NOT FOUND: other, rales, spasm, tenderness, wheezes Cardiovascular (brief) Cardiac Brief: FOUND: regular rate, regular rhythm, NOT FOUND: click, gallop, murmur, other, pedal edema, peripheral edema, rub Capillary Refill: <2 sec Abdomen (brief) Abdominal Brief: FOUND: soft, tender Musculoskeletal (brief) Comments stiches in right # 3 finger Integumentary (brief) Integumentary Brief: FOUND: dry, pink, rash, warm Neurologic (brief) Comments no focal deficits. genrally weak. alert to person , place and time but ponderous in response Neurologic RN Documented GCS Eye Opening: (4)Spontaneous Verbal: (5)Oriented Motor: (6)Obeys Commands Total: Laboratory Laboratory Tests Test 12/04/16 16:38 12/04/16 17:47 White Blood Count 3.4T/MM3 Red Blood Count 3.79M/MM3 Hemoglobin 12.6GM/DL Hematocrit 36.4% Mean Corpuscular Volume 96.0UM3 Mean Corpuscular Hemoglobin 33.2UUG Mean Corpuscular Hemoglobin Concent 34.6GM/DL RDW Standard Deviation 42.6FL Platelet Count 166T/MM3 Mean Platelet Volume 10.4UM3 Immature Granulocyte % (Auto) 0.0% Neutrophils (%) (Auto) 66.6% Lymphocytes (%) (Auto) 28.4% Monocytes (%) (Auto) 4.4% Eosinophils (%) (Auto) 0.3% Basophils (%) (Auto) 0.3% Absolute Immature Granulocyte (auto 0.00T/MM3 Absolute Neutrophils (auto) 2.3T/MM3 Absolute Lymphocytes (auto) 1.0T/MM3 Absolute Monocytes (auto) 0.2T/MM3 Absolute Eosinophils (auto) 0.0T/MM3 Absolute Basophils (auto) 0.0T/MM3 Turbidity < 20 Sodium Level 137MEQ/L Potassium Level 3.8MEQ/L Chloride Level 102MEQ/L Carbon Dioxide Level 25MEQ/L Anion Gap 10MEQ/L Blood Urea Nitrogen 14.0MG/DL Creatinine 0.6MG/DL Glomerular Filtration Rate Calc 95 BUN/Creatinine Ratio 23RATIO Glucose Level 120MG/DL Calculated Osmolality 266MOSM/KG Calcium Level 8.9MG/DL Total Bilirubin 0.60MG/DL Icterus Index < 2 Aspartate Amino Transf (AST/SGOT) 31U/L Alanine Aminotransferase (ALT/SGPT) 26U/L Alkaline Phosphatase 51U/L Troponin I 0.020ng/ml Total Protein 7.3G/DL Albumin 3.8G/DL Globulin 3.5G/DL Albumin/Globulin Ratio 1.1RATIO Chemistry Specimen Hemolysis < 15 Urine Collection Type Cleancatch-midstream Urine Color Yellow Urine Turbidity Clear Urine pH 5.5 Urine Specific [place] 1.010 Urine Protein Negative Urine Glucose (UA) Negative Urine Ketones Negative Urine Blood Negative Urine Nitrite Negative Urine Bilirubin Negative Urine Urobilinogen 0.2EU/DL Urine Leukocyte Esterase Negative Urinalysis Comment Microscopic not ind. EKG sinus without ischemia Radiology CT head negative for acute injury Assessment & Plan Assessment 1. encephalopathy acute POA: at this time the patient is aware of her surroundings but still not herself. the most likel event is a medication event. cannot completely exclude INTEGRITY DIRECTOR injury. If the patient continues to be slow to respond in the am consider MR to exclude an occult stroke. Otherwise metabolic evaluation is normal. Consider checking TSH if not back to normal in the am. 2. laceration to to # 3 finger acute POA: per ED MD. stutured. typically they come out in 7 to 10 dyas 3. Hypothyroid chronic POA: continue Synthroid supplementation 4. HTN chronic POA: continue ARB, norvasc, adjust meds as indicated 5. enteritis resolved; patient on cipro in the outpatient setting. diarrhea resolved. will hold for now. hx of c dif colitis in the past. to be aware of 6. chronic pain back present on admission: will hold oral meds. Iv dilaudid prn pain. again issue is did patient over medicate herself? will further assess as he needs dictate, patient seeing pain clinic currently 7. DVT ppx: SCD DVT Prophylaxis: SCD'S Code Status Do Not Resuscitate Hospital Course Summary Disclaimer The hospital course summary below is not to be considered part of the above Progress Note. MARIAELENA COLINDRES MD 12/05/16 1430: Past Medical History Current Medications Home Meds Reported Medications Ranitidine HCl (Ranitidine HCl) 150 Mg Tablet, 150 MG PO BID 12/04/16 Ciprofloxacin HCl (Ciprofloxacin HCl) 500 Mg Tablet, 500 MG PO BID started 12/02/16 12/04/16 Hydromorphone HCl (Hydromorphone HCl) 2 Mg Tablet, 2 MG PO QID Y for PAIN 12/04/16 Losartan Potassium (Losartan Potassium) 100 Mg Tablet, 100 MG PO DAILY 12/04/16 Sennosides/Docusate Sodium (Senna-Docusate Sodium Tablet) 1 Each Tablet, 1 TAB PO BID 10/02/15 Metoclopramide HCl (Metoclopramide HCl) 5 Mg Tablet, 5 MG PO HS 10/02/15 Sertraline (Sertraline) 25 Mg Tablet, 25 MG PO HS 10/02/15 Omeprazole (Omeprazole) 40 Mg Capsule.dr, 40 MG PO ACB 10/02/15 Morphine Sulfate (Morphine Sulfate ER) 30 Mg Tablet.er, 30 MG PO BID 10/02/15 Amlodipine Besylate (Amlodipine Besylate) 5 Mg Tablet, 5 MG PO DAILY 10/02/15 Celecoxib (Celebrex) 200 Mg Capsule, 200 MG PO BID 06/27/14 Calcium Carbonate (Calcium) 1 Tab Tablet, 1 TAB PO BID 12/15/13 Vitamin B Complex (Vitamin B Complex) 1 Cap Capsule, 1 CAP PO DAILY 12/15/13 Morphine Sulfate (Morphine Sulfate) 15 Mg Tablet, 15 MG PO NOON 11/14/11 Cholecalciferol (Vitamin D) 1,000 Unit Capsule, 1000 UNIT PO DAILY 11/14/11 Potassium Chloride (Klor-Con M20) 20 Meq Tab.prt.sr, 20 MEQ PO BID 11/14/11 Baclofen (Baclofen) 20 Mg Tablet, 20 MG PO BID 11/13/11 Red Yeast Rice Extract (Red Yeast Rice) 600 Mg Capsule, 600 MG PO DAILY 11/13/11 Ascorbic Acid (Vitamin C) 500 Mg Tablet, 500 MG PO BID 03/17/09 Tetrahydrz/Dext 70/Peg 400/Pvp (Eye Drops) 15 Ml Drops, 1-2 DROP BOTH EYES BID Y for PRN ORDERS 03/17/09 Lysine (L-Lysine) 500 Mg Capsule, 500 MG PO DAILY 03/17/09 Levothyroxine Sodium (Levoxyl) 25 Mcg Tablet, 25 MCG PO ACB 03/17/09 Fish Oil/[place]-3 Fatty Acids (Fish Oil 1,000 Mg Capsule) 1 Cap Capsule, 1 CAP PO BID 03/17/09 Allergies: Coded Allergies: metronidazole (Verified Allergy, Unknown, 12/04/16) Assessment & Plan Assessment Dr. Valdez's note reviewed. Mrs. Iglesias interviewed and examined. CC: Falls and confusion HPI: Mrs. Iglesias is an 81-year-old female who generally lives independently. She reports having diarrhea 5 days ago after which Cipro was started. 2 days ago she felt fine but yesterday morning she reports that she felt horrible indicating that she fell a number of times generally landing on her bottom and causing several small scrapes and abrasions on her arms with the falls. She denies head injury or loss of consciousness at any point in time. She describes being lightheaded but no vertigo. She describes generalized weakness but denied any focal deficits. She additionally reports that she couldn't think straight and had trouble finding her phone. She was eventually able to have staff at her apartment complex notify her daughter that she needed assistance and EMS was subsequently contacted and she was transferred to the emergency room for evaluation. EMS administered 50 g of fentanyl and Route to the ER and the patient was described as being moderately lethargic with slow verbal responses on initial assessment. CT of the head was negative for acute change and laboratory data nonrevealing. The patient had a laceration on the distal left middle finger which required 2 sutures for closure. She was fully oriented but intermittently described as confused. She was unable to stand independently and subsequently hospitalized for observation. 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 Chronic pain syndrome, and left renal mass suspicious for renal cell carcinoma which has been stable on follow-up imaging. The patient has had a right total knee replacement. ROS: 10 point review as previously recorded with additions patient complains of chronic pain "most everywhere" but primarily in her neck and back, constipation , urinary frequency/incontinence, and weakness. EXAM: General-NAD, alert, cooperative HEENT-PERRL, EOMI without nystagmus, conjugate gaze, facial structures symmetric , oropharynx clear, neck supple and without adenopathy Lungs-respirations nonlabored, good airflow, breath sounds clear anterior/ posteriorly Cardiac-regular rhythm, S1-S2, soft systolic murmur Abd-soft, nontender, without palpable mass, bowel sounds present Ext-without edema Skin-scattered small bruises on the upper extremities, small abrasion at the left elbow, left middle fingertip bandaged Neuro-cranial nerves III through XII intact except minor right ptosis present, motor tone and power normal (explosive operator and deltoids 4+/5 bilaterally, iliopsoas/ dorsiflexion/plantarflexion 4+/5 bilaterally), no drift of the upper extremities ; sensation intact to light touch upper and lower extremities and across the face symmetrically Psych-flat affect, oriented 3 A/P: Encephalopathy-improving Ambulatory dysfunction with falls Laceration left third finger Hypertension Gastroenteritis, resolved Constipation, chronic Chronic back pain, chronic narcotic use CAD Depression PT/OT evaluated the patient earlier this morning at which time the patient was able to ambulate 240 feet with standby assistance and used a walker for the terminal component of her walk. They've recommended home with home health and continued use of a walker for stability. The patient is mentally clear this morning and concerned about narcotic withdrawal which he apparently has experienced previously. Morphine extended release will be resumed at 20 mg twice a day but short acting narcotics will continue to be held. I am concerned about possibility for medication overdose contributing to presentation and the falls prior to presentation. Additionally has Cipro may have contributed to presentation and given negative GI panel last week will be discontinued. The patient describes chronic constipation and will continue usual bowel regimen with increased dose senna to 2 tablets twice daily and continued milk of magnesia as needed. Discharge recommendations have been discussed with the patient's daughter by case management. The patient's daughter is tentatively planning admission to [facility] in the near future for higher level of care. Additionally she plans to get a life alert for her mother to avoid delays in care as she experienced yesterday. Finally the patient's daughter plans to spend nights with her pending admission to [facility] which he indicated will likely occur within the next 1-2 weeks. Patient is felt stable for discharge at this time and is asked to follow up with Pepito Scanlon within 1 week. Sutures will need to be removed in 7-10 days. Home medications are unchanged other than increased dose Senokot and recommendation that she discontinue use of short-acting narcotics pending follow -up. Plan/Intensity of Service CT head reviewed by myself (no acute findings, probable right arachnoid cyst and chronic microvascular ischemic changes). CT cervical spine report reviewed. Laboratory data reviewed, old records reviewed. Discussed with nursing and case management. LAWRNECE VALDEZ MD December 04, 2016 23:03 MARIAELENA COLINDRES MD December 05, 2016 14:30
--- NOTE | 2016-12-04 23:40 | NUR ---
STATUS PT RESTING IN BED. PT'S DAUGHTER JOSUE VISITED ABOUT HER CONCERN OF HER MOTHERS CHANGE. DAUGHTER STATES PT HAS HAD A VERY CLEAR MIND AND IS ABLE TO MANAGE HER MEDICATION. WHEN TALKING WITH PT SHE STATES SHE DID NOT REMEMBER HOW TO USE HER PHONE. PT REFUSED TO TAKE CIPRO, SHE IS WORRIED IT IS MAKING HER FORGET. DR VALDEZ WAS UP DATED. PT'S B/P 148/77 AT 9925.
[2016-12-05] VITALS: BP 148/77; PULSE 65; RESP 18; TEMP 97.8; O2SAT 92
--- NOTE | 2016-12-05 05:32 | NUR ---
STATUS PT SLEEPING OFF AND ON. NEURO Q 2 HOURS. NOTED AT TIMES IT IS DIFFICULT FOR THE PT TO SAY WHAT SHE MEANS. STATES SHE IS WORRIED IT WILL STAY THIS WAY. UP TO THE BSC WITH ONE ASSIST AND GAIT BELT. GAIT IS STEADY. PT FORGETS SHE HAS A IV. CALL LIGHT WITHIN REACH, PT REMINDED TO CALL FOR NEEDS. BED ALARM IS ON.
[2016-12-05 05:33] LABS: EOSINOPHILS # (AUTO) 0.1 T/MM3 (0-0.5); EOSINOPHILS % (AUTO) 1.4 % (0-4); HCT - HEMATOCRIT 33.3 % (36-46); HGB - HEMOGLOBIN 11.3 GM/DL (12-16); LYMPHOCYTES # (AUTO) 1.5 T/MM3 (1-4.8); LYMPHOCYTES % (AUTO) 42.4 % (23-45); MEAN CORPUSCULAR HGB 33.1 UUG (26-34); MEAN CORPUSCULAR HGB CONC(MCHC 33.9 GM/DL (31-37); MEAN CORPUSCULAR VOLUME 97.7 UM3 (80-100); MEAN PLATELET VOLUME 10.1 UM3 (9.4-12.4); MONOCYTES # (AUTO) 0.1 T/MM3 (0-0.8); MONOCYTES % (AUTO) 3.9 % (0-9.0); NEUTROPHILS #(AUTO)-ABSOLUTE 1.9 T/MM3 (1.8-7.7); NEUTROPHILS % (AUTO) 52.3 % (33-66); RED BLOOD COUNT 3.41 M/MM3 (4.00-5.20); WBC - WHITE BLOOD COUNT 3.6 T/MM3 (4.5-11.0)
[2016-12-05 05:50] LABS: ANION GAP 6 MEQ/L (5-15); BUN/CREATININE RATIO 17 RATIO (6-26); CALCIUM 8.3 MG/DL (8.4-10.2); CHLORIDE 103 MEQ/L (98-107); CO2 - CARBON DIOXIDE 29 MEQ/L (22-30); CREATININE 0.7 MG/DL (0.7-1.2); GLOMERULAR FILTRATION RATE 80; GLUCOSE 98 MG/DL (65-110); POTASSIUM 3.4 MEQ/L (3.6-5); SODIUM 138 MEQ/L (134-144)
[2016-12-05] MEDS ORDERED: CIPROFLOXACIN 500 MG TABLET PO SCH (06:30)
[2016-12-05] MEDS ORDERED: OMEPRAZOLE 20 MG CAPSULE PO SCH (06:30)
[2016-12-05] MEDS ORDERED: LEVOTHYROXINE 25 MCG TABLET PO SCH (06:30)
[2016-12-05 07:41] VITALS: BP 148/68; PULSE 60; RESP 18; TEMP 98.5; O2SAT 95
[2016-12-05 08:00] VITALS: PULSE 60
[2016-12-05 08:23] LABS: PHOSPHORUS 3.3 MG/DL (2.5-4.5)
--- NOTE | 2016-12-05 08:34 | DI ---
Indication: ITS.REASON: fall, unwitnessed, confusion PROCEDURE: CT HEAD W/O CONTRAST: Encounter: Initial Comparison: None Technique: Axial CT images through the head were performed without contrast. Iterative Reconstruction dose reducing techniques was utilized. FINDINGS: The ventricles are of normal size, shape, and contour for the patient's age. Hypodensity in the right middle cranial fossa most compatible with an arachnoid cyst. There are scattered areas of low attenuation in the white matter which most likely represent changes from chronic microvascular ischemia. The brainstem, cerebellum, and cerebral hemispheres otherwise have a normal morphology and CT attenuation. There is no evidence of midline displacement. No hemorrhage, signs of acute territorial stroke, mass effect, mass lesions, or edema is evident. The visualized portions of the skull base, midface, and calvarium demonstrate no abnormality. The paranasal sinuses are well aerated and free of significant disease. The tympanic and mastoid cavities appear normal. IMPRESSION: 1. Age-appropriate cerebral atrophy. There is moderate deep/subcortical white matter disease likely secondary to chronic small vessel ischemia. 2. Right middle cranial fossa arachnoid cyst suggested. .
--- NOTE | 2016-12-05 08:39 | DI ---
EXAM: CT CERVICAL SPINE W/O CONTRAST LOCATION OF DICTATION: [place] HISTORY: ITS.REASON: fall, neck pain COMPARISON: No prior studies available for comparison. Technique: Axial CT images through the cervical spine were performed without contrast. Coronal and sagittal reformatted images were also obtained. Automated Exposure Control and Iterative Reconstruction dose reducing techniques were utilized. FINDINGS: The alignment of the cervical spine is normal. Anterior cervical disc fusion is demonstrated at the C4-C7 levels. Multilevel degenerative disc disease and facet/uncovertebral joint arthropathy. There is no evidence of acute fracture or subluxation of the cervical spine. The facet joints demonstrate normal alignment. The atlantoaxial articulation, dens, and upper cervical spine demonstrate no subluxation. The there are multiple levels demonstrating central canal and bilateral lateral recess/neuroforaminal stenosis which appears to be slightly worse in the lower cervical spine and could be further evaluated with MRI if clinically indicated. The paraspinal soft tissues and spinal canal appear unremarkable. The lung apices are clear. IMPRESSION: 1. Postsurgical changes of anterior cervical disc fusion at C4-C7. No evidence for orthopedic hardware malfunction. 2. Normal alignment of the cervical spine without subluxation. There are no acute fractures. 3. Moderate spondylosis is demonstrated with suggested neuroforaminal/central canal particularly in the lower cervical spine. .
[2016-12-05] MEDS: NORMAL SALINE 1,000 ML IV SCH (08:42)
[2016-12-05] MEDS ORDERED: AMLODIPINE 5 MG TABLET PO SCH (09:00)
[2016-12-05] MEDS ORDERED: LOSARTAN 100 MG TABLET PO SCH (09:00)
--- NOTE | 2016-12-05 09:00 | NUR ---
pschy Alert and oreintated up with help to bathroom with assist of 1 gait belt and walker up to chair for meals. appeitite is good.
[2016-12-05] MEDS ORDERED: TETRAHYDROZOLINE 0.05% EYE DROP 15ml BOTH EYES PRN (10:13)
[2016-12-05] MEDS ORDERED: POTASSIUM CHLORIDE 20 MEQ TABLET PO SCH (10:15)
[2016-12-05] MEDS ORDERED: MILK OF MAGNESIA 30 ML SUSP PO PRN (10:15)
[2016-12-05] MEDS ORDERED: MORPHINE SULFATE SR 30 MG TABLET PO SCH (10:15)
[2016-12-05] MEDS ORDERED: BISACODYL 10 MG SUPPOSITORY RECTALLY PRN (10:15)
--- NOTE | 2016-12-05 10:53 | NUR ---
CM CM VISITED PT. CM EXPLAINED ROLE AND PROVIDED CONTACT INFORMATION. PT PLANS TO RETURN HOME POST HOSPITAL STAY. CM SPOKE WITH PT DAUGHTER DOUGLAS AND SHE WOULD LIKE PT TO GO TO [facility] IN THE NEAR FUTURE BUT IS OKAY WITH USING [facility] AT TIME OF D/C FROM [facility]. CM DID REACH OUT TO BONNIE AT [facility] AND THEY DO NOT HAVE AVAILABILITY AT THIS TIME BUT DID PROVIDED CM WITH PRICING AND ENCOURAGED CM TO LET PT DAUGHTER KNOW TO KEEP CHECKING FOR AVAILABILITY. PT DAUGHTER IS AWARE OF COST FOR FACILITY AND DOUGH MIXER. PT DAUGHTER IS PLANNING TO GET LIFE ALERT FOR PT AND HAS BEEN TALKING WITH PT ABOUT MEALS ON WHEELS. DOUGLAS IS AWARE TO CONTACT CM IF NEEDS ARISE.
--- NOTE | 2016-12-05 11:52 | NUR ---
co of constipation requested a dulcolax supp and given.
[2016-12-05 11:56] VITALS: BP 139/64; PULSE 67; RESP 18; TEMP 98.4; O2SAT 96
--- NOTE | 2016-12-05 13:00 | NUR ---
CO of dulcolax not helping request a dose of milk of magnesia.
--- NOTE | 2016-12-05 13:16 | NUR ---
TATIANA SPOKE WITH PT DAUGHTER DOUGLAS AND SHE IS AWARE THAT PT WILL D/C HOME TODAY. PT WILL GO TO [facility] NEXT WEEK PER BONNIE AT THE [place]. DOUGLAS WILL BE IN CONTACT WITH THE FACILITY. PT WILL D/C TODAY WITH [facility]. DOUGLAS IS AWARE TO CONTACT TATIANA IF NEEDS ARISE.
[2016-12-05] MEDS ORDERED: SENN1TAB7 PO (14:54)
--- NOTE | 2016-12-05 15:05 | DSPDOC ---
Discharge Summary Date 12/05/16 See my addendum to H&P dictated on 12/05/16 for hospital course and discharge plans. In brief patient was admitted after multiple falls on 12/04/16 with increased confusion. All testing was unremarkable other than chronic changes seen on CT head and cervical spine. Patient was evaluated by PT on 12/05 and able to ambulate independently although more stable with a front wheeled walker which was recommended at discharge. Additionally home health with outpatient PT was advised. Both walker and home health were coordinated prior to discharge. Confusion had cleared overnight and patient was felt stable for discharge on 12/05. The patient's daughter is in the process of arranging admission to [facility] in the near future when the room is available. Patient is asked to follow-up with Pepito Scanlon within 1 week. Sutures in the left middle finger will need to be removed in 7-10 days. Home medications are unchanged other than increased dose Senokot and recommendation that she discontinue use of short-acting narcotics pending follow -up. Cipro was discontinued as GI panel was negative. Diagnoses: Encephalopathy-Resolved Ambulatory dysfunction with falls Laceration left third finger Hypertension Gastroenteritis, resolved Constipation, chronic Chronic back pain, chronic narcotic use CAD Depression MARIAELENA COLINDRES MD December 05, 2016 15:05
--- NOTE | 2016-12-05 17:00 | NUR ---
discharge instructions reviewed with pt and family.iv fluids dc;c and tel.dc per wc with family states pain is improved at present.
[2016-12-05] MEDS ORDERED: SENNA + DOCUSATE TAB PO SCH (21:00)
[2016-12-05] MEDS ORDERED: CELECOXIB 200 MG CAPSULE PO SCH (21:00)
[2016-12-05] MEDS ORDERED: SERTRALINE 25 MG TABLET PO SCH (22:00)
--- NOTE | 2016-12-06 15:32 | NUR ---
CM CM LVM
--- NOTE | 2016-12-08 13:36 | NUR ---
CM CM LVM Addendum: 12/08/16 at 1337 by LUIS SPAIN RN CM WRONG PT
== END 2016-12-05 17:00 | disposition home health service (06) ==
LOC: ED 16:31 → UNDOADMOB 19:29 → EDHOLD 19:29 → MED 21:15
PROVIDERS: ADMIT Emergency Medicine; ATTEND Internal Medicine
DX: G93.40 Encephalopathy, unspecified (principal); R29.6 Repeated falls; S61.213A Laceration without foreign body of left middle finger without damage to nail, initial encounter; I10 Essential (primary) hypertension; K52.9 Noninfective gastroenteritis and colitis, unspecified; K59.09 Other constipation; G89.29 Other chronic pain; M54.2 Cervicalgia; Z79.899 Other long term (current) drug therapy; I25.10 Atherosclerotic heart disease of native coronary artery without angina pectoris; F41.8 Other specified anxiety disorders; E03.9 Hypothyroidism, unspecified; I34.1 Nonrheumatic mitral (valve) prolapse; E78.5 Hyperlipidemia, unspecified; K21.9 Gastro-esophageal reflux disease without esophagitis; Z79.1 Long term (current) use of non-steroidal anti-inflammatories (NSAID); Z66 Do not resuscitate; W18.39XA Other fall on same level, initial encounter; Y93.89 Activity, other specified; Y92.038 Other place in apartment as the place of occurrence of the external cause; Y99.8 Other external cause status
CPT/HCPCS: 12001; 36415; 51701; 70450; 72125; 80048; 80053; 81003; 83735; 84100; 84439; 84443; 84484; 85025; 93005; 96361; 96374; 96375; 97162; 97166; 99284; A9270; G0378; G8978; G8979; G8987; G8988; G8989; J1170; J7030; 99218

== ENCOUNTER 2017-06-22 12:06 | Inpatient (IN) ==
--- NOTE | 2017-06-22 12:57 | CT Scan Report ---
Indication: right sided weakness >24 hours HX TIAs PROCEDURE: CT head/brain wo con: Encounter: Initial Comparison: Head CT dated June 27, 2014 Technique: Axial CT images through the head were performed without contrast. Iterative Reconstruction dose reducing technique was utilized. FINDINGS: Mild atrophy. Old bilateral basal ganglia lacunar infarcts. The ventricles are of normal size, shape, and contour for the patient's age. There are numerous areas of low attenuation in the white matter which most likely represent changes from chronic microvascular ischemia. The brainstem, cerebellum, and cerebral hemispheres otherwise have a normal morphology and CT attenuation. There is no evidence of midline displacement. No hemorrhage, signs of acute territorial stroke, mass effect, mass lesions, or edema is evident. The visualized portions of the skull base, midface, and calvarium demonstrate no abnormality. The paranasal sinuses are well aerated and free of significant disease. The tympanic and mastoid cavities appear normal. IMPRESSION: No acute intracranial abnormality or hemorrhage. Stable head CT. .
--- NOTE | 2017-06-22 13:01 | Emergency Department Report ---
Weakness HPI - General Chief complaint: Weakness Stated complaint: right side weakness Time Seen by Provider: 06/22/17 12:25 Source: patient, family Mode of arrival: wheelchair Limitations: no limitations - History of Present Illness HPI Narrative: Pt presents with right sided weakness that started about 0930 yesterday morning. Pt states she had difficulty getting out of her chair, stumbled into a table and was then able to use her walker to get to her bed well she fell back. Pt lives in a fdc and normally ambulates with her walker. Pt denies any headache, vision changes, or speech difficulty. She does have a history of 2 TIAs with the last being in NOVEMBER. MD Complaint: focal weakness Onset (ago): hour(s) Duration: constant Location: RLE Migration: none Severity: moderate Associated symptoms: denies other symptoms - Related Data Home Medications Medication Instructions Recorded Confirmed Milk of Magnesia (Magnesium 30 ml PO DAILY PRN ml 01/08/17 06/22/17 hydroxide) 400 mg/5 mL oral suspension Xanax (alprazolam) 0.25 mg tablet See Label Instructions PO BID PRN 01/08/17 melatonin 5 mg capsule 5 mg PO HS cap 01/08/17 06/22/17 Ascorbic Acid [Vitamin C] 1,000 mg PO DAILY 06/22/17 06/22/17 Losartan Potassium [Cozaar] 50 mg PO DAILY 06/22/17 06/22/17 Morphine Sulfate [Morphine Sulfate 30 mg PO BID 06/22/17 06/22/17 ER] Max-3/Dha/Epa/Fish Oil [Fish Oil 1 cap PO DAILY 06/22/17 06/22/17 1,000 mg Softgel] Vitamin B Complex [Super B-50 1 each PO DAILY 06/22/17 06/22/17 Complex] Previous Rx's Medication Instructions Recorded sennosides-docusate sodium 8.6 1 tab PO BID #120 tab 01/08/17 mg-50 mg tablet Celebrex (Celecoxib) 200 mg capsule 200 mg PO BID #60 cap 01/22/17 Cymbalta (duloxetine) 60 mg 60 mg PO DAILY #30 cap 01/23/17 capsule,delayed release Norvasc (amlodipine) 5 mg tablet 5 mg PO DAILY #30 tab 01/23/17 sucralfate 1 gram tablet 1 g PO .COMPLEX PRN #31 tab 02/16/17 Zoloft (sertraline) 25 mg tablet 50 mg PO HS #62 tab 02/21/17 calcium carbonate 600 mg calcium 600 mg PO DAILY #30 tab 04/05/17 (1,500 mg) tablet Klor-Con M20 (potassium chloride 20 meq PO BID #60 tab 04/20/17 ER) 20 mEq tablet,(part/cryst) Prilosec (Omeprazole) 20 mg 20 mg PO ACB #30 cap 04/20/17 capsule,delayed release levothyroxine 25 mcg tablet 25 mcg PO ACB #30 tab 04/20/17 Zantac (Ranitidine) 150 mg tablet 150 mg PO BID #60 tab 05/02/17 hydromorphone 4 mg tablet 4 mg PO TID PRN #90 tab 05/03/17 Neurontin (gabapentin) 100 mg 100 mg PO TID #90 cap 05/10/17 capsule lysine 500 mg tablet 1,000 mg PO DAILY #60 tab 05/31/17 amitriptyline 10 mg tablet 10 mg PO HS #30 tab 06/04/17 Allergies Allergy/AdvReac Type Severity Reaction Status Date / Time metronidazole Allergy Unknown Verified 12/04/16 16:41 Review of Systems All systems: reviewed and negative except as stated Constitutional: Reports: weakness. Denies: fever, chills Eyes: Denies: vision change ENT: Denies: ear pain Cardiovascular: Denies: chest pain, palpitations Respiratory: Denies: cough, dyspnea Gastrointestinal: Denies: nausea, vomiting, diarrhea Genitourinary: Denies: urgency, dysuria Neurological: Reports: weakness. Denies: headache PFSH Patient Stated Medical History Transient Ischemic Attacks ( Yes TIA) Rheumatic Fever Yes Other Musculoskeletal Yes: chronic back pain Clinic Medical History CAD (coronary artery disease) (Acute Medical) HTN (hypertension) (Acute Medical) Hepatitis (Acute Medical) Herniated disc (Acute Medical) Hyperlipidemia (Acute Medical) Hypothyroid (Acute Medical) OA (osteoarthritis of the spine) (Acute Medical) Rheumatic fever (Acute Medical) Scarlet fever (Acute Medical) Physical Exam - Limitations Limitations: no limitations - General General appearance: alert, in no apparent distress - Normal Exams: Head:: Normocephalic without trauma Eyes:: Pupils are PERRLA w/ EOMI Fundi:: Disks flat and sharp, No hemorrhages Neck:: Full range of motion, without adenopathy Chest/Respirations:: Clear all magdaleno, with good airflow, and symmetry bilaterally Cardiovascular:: Regular rate and rhythm, without murmur or gallop, Pulses 2+ all extremities, capillary refill, <2 seconds all extremities Abdomen:: Bowel sounds positive, soft, non-tender, non-distended Musculoskeletal:: No tenderness, or deformity noted (Equal house calls nurse strength to upper extremeties, moderate weakness to RLE) Integumentary:: No rashes Neurological:: Patient is alert, and oriented, cranial nerves, motor/sensory/ cerebellar, exams w/o gross deficits, to observation Psychiatric:: Patient exhibits, appropriate attention, emotion and affect Course Vital Signs Temperature 98.4 F 06/22/17 12:08 Pulse Rate 69 06/22/17 12:08 Respiratory Rate 16 06/22/17 12:08 Blood Pressure 187/86 H 06/22/17 12:08 Pulse Oximetry 96 06/22/17 12:08 Temperature 98.4 F 06/22/17 12:08 Pulse Rate 64 06/22/17 13:45 Respiratory Rate 16 06/22/17 12:08 Blood Pressure 152/62 H 06/22/17 13:45 Pulse Oximetry 95 06/22/17 13:45 Weakness - MDM Narrative Medical decision making narrative: Per pt assessment, lab and CT results. Hospitalist notified of findings and pt presentation. Pt to be admitted for MRI and PT eval and treat. Intentions discussed with pt and family. Family concerned these are things that can be done at the [place]. Explained in detail the benefits of admission for pt to maintain her independence, family and pt agree with admission - Differential Diagnosis Differential diagnosis: Likely: anemia, hypoglycemia (TIA, CVA ,UTI) - Lab Data Attestation: I reviewed the patient's lab results. Result diagrams: 06/22/17 12:58 06/22/17 12:58 Lab Results 06/22/17 06/22/17 06/22/17 Range/Units 12:33 12:58 12:58 WBC 2.6 L (4.5-11.0) T/MM3 RBC 3.49 L (4.00-5.20) M/MM3 Hgb 11.5 L (12-16) GM/DL Hct 35.1 L (36-46) % MCV 100.6 H (80-100) UM3 MCH 33.0 (26-34) UUG MCHC 32.8 (31-37) GM/DL RDW Std Deviation 50.6 H (36.9-50.2) FL Plt Count 160 (130-400) T/MM3 MPV 10.0 (9.4-12.4) UM3 Immature Gran % (Auto) 0.0 (0.0-0.5) % Neut % (Auto) 40.8 (33-66) % Lymph % (Auto) 50.8 H (23-45) % [place] % (Auto) 5.3 (0-9.0) % Eos % (Auto) 2.7 (0-4) % Baso % (Auto) 0.4 (0-2) % Neut # (Auto) 1.1 L (1.8-7.7) T/MM3 Lymph # (Auto) 1.3 (1-4.8) T/MM3 [place] # (Auto) 0.1 (0-0.8) T/MM3 Eos # (Auto) 0.1 (0-0.5) T/MM3 Baso # (Auto) 0.0 (0-0.2) T/MM3 Abs Immat Gran (auto) 0.00 (0.00-0.03) T/MM3 Turbidity < 20 (0-20) Sodium 139 (134-144) MEQ/L Potassium 3.9 (3.6-5) MEQ/L Chloride 104 (98-107) MEQ/L Carbon Dioxide 30 (22-30) MEQ/L Anion Gap 5 (5-15) MEQ/L BUN 12.0 (7-17) MG/DL Creatinine 0.6 L (0.7-1.2) MG/DL GFR Calculation 95 BUN/Creatinine Ratio 20 (6-26) RATIO Glucose 118 H (65-110) MG/DL Calculated Osmolality 269 (261-280) MOSM/KG Calcium 8.7 (8.4-10.2) MG/DL Total Bilirubin 0.40 (0.20-1.30) MG/DL Icterus Index < 2 (0-7) AST 26 (14-36) U/L ALT 31 (9-52) U/L Alkaline Phosphatase 64 (38-126) U/L Total Protein 8.0 (6.3-8.2) G/DL Albumin 3.6 (3.5-5.0) G/DL Globulin 4.4 H (2.4-3.6) G/DL Albumin/Globulin Ratio 0.8 L (1.1-2.2) RATIO Specimen Hemolysis < 15 (0-25) Ur Collection Type Urine, catheter Urine Color Yellow (YELLOW) Urine Clarity Clear Urine pH 6.5 (5.0-8.0) Ur Specific [place] <=1.005 L (1.015-1.025) Urine Protein Negative (NEGATIVE) Urine Glucose (UA) Negative (NEGATIVE) Urine Ketones Negative (NEGATIVE) Urine Occult Blood Negative (NEGATIVE) Urine Nitrate Negative (NEGATIVE) Urine Bilirubin Negative (NEGATIVE) Urine Urobilinogen 0.2 (NORMAL) EU/DL Ur Leukocyte Esterase Negative (NEGATIVE) Urinalysis Comment Microscopic not ind. - Radiology Data Attestation: I reviewed the patient's radiology results. (per Dr Og) Disposition Clinical Impression: Unilateral weakness Disposition: 02 To [facility] [place] Condition: Stable Time of Disposition: 15:11 - Seen By: brelevel
--- OUTSIDE RECORDS SUMMARY | 2017-06-22 13:13 | External Medical Summary | Referral Summary ---
:1935 Author Care Team Providers Name Role Phone Pepito Scanlon Primary Care Physician Encounter [facility] [id number] Date(s): 09/29/14 - 09/29/14 [address] RENEE Montelongo, [address] [place] [id number] Discharge Diagnosis: Depression Discharge Diagnosis: GERD without esophagitis Discharge Diagnosis: Benign essential HTN Discharge Diagnosis: Constipation Discharge Diagnosis: Insomnia Discharge Diagnosis: Acute diarrhea Discharge Diagnosis: Restless legs syndrome (RLS) Discharge Diagnosis: Adult hypothyroidism Discharge Disposition: Home or Self Care Attending Physician: Toribio Brito MD Admitting Physician: Toribio Brito MD Referring Physician: Pepito Scanlon Vital Signs Most recent to oldest [Reference Range]: 1 Temperature Tympanic [36.6-38.1 degC] 36.8 degC (09/29/14 7:25 PM) Apical Heart Rate [60-100 bpm] 76 bpm (09/29/14 7:25 PM) Blood Pressure [90-140/60-90 mmHg] 138/82 mmHg (09/29/14 7:25 PM) Most recent to oldest [Reference Range]: 1 SpO2 97 % (09/29/14 7:25 PM) Problem List Condition Effective Dates Status Health Status Informant Constipation(Confirmed) Active Depression(Confirmed) Active GERD without esophagitis(Confirmed) Active Adult hypothyroidism(Confirmed) Active Allergies, Adverse Reactions, Alerts Substance Reaction Severity Status Flagyl Active Medications Ambien 5 mg oral tablet 1 tabs, Oral, q12hr, as needed for sleep, # 2 tabs, 0 Refill(s) Start Date: 09/29/14 Stop Date: 09/30/14 Status: OrderedamLODIPine 5 mg oral tablet 1 tabs, Oral, Daily, # 30 tabs, 0 Refill(s) Start Date: 09/29/14 Status: Orderedascorbic acid 0 Refill(s) Start Date: 09/29/14 Status: OrderedAspirin Low Dose mg, Oral, Daily, 0 Refill(s) Start Date: 09/29/14 Status: Orderedbaclofen 20 mg oral tablet 1 tabs, Oral, TID, # 270 tabs, 0 Refill(s) Start Date: 09/29/14 Status: OrderedCalcium 600+D tabs, Oral, TID, 0 Refill(s) Start Date: 09/29/14 Status: OrderedCeleBREX 200 mg oral capsule 1 caps, Oral, Daily, # 30 caps, 0 Refill(s) Start Date: 09/29/14 Status: Ordereddocusate sodium 0 Refill(s) Start Date: 09/29/14 Status: OrderedFish Oil 500 mg oral capsule 2 caps, Oral, BID, # 130 caps, 0 Refill(s) Start Date: 09/29/14 Status: Orderedlevothyroxine 25 mcg (0.025 mg) oral tablet 1 tabs, Oral, Daily, # 30 tabs, 0 Refill(s) Start Date: 09/29/14 Status: Orderedlosartan-hydrochlorothiazide 100 mg-12.5 mg oral tablet 1 tabs, Oral, Daily, # 30 tabs, 0 Refill(s) Start Date: 09/29/14 Status: Orderedlysine 500 mg oral tablet 1 tabs, Oral, Daily, # 100 tabs, 0 Refill(s) Start Date: 09/29/14 Status: Orderedmorphine 15 mg oral tablet 1 tabs, Oral, q6hr, as needed for pain, 0 Refill(s) Start Date: 09/29/14 Status: Orderedomeprazole 20 mg oral delayed release tablet tabs, Oral, Daily, 0 Refill(s) Start Date: 09/29/14 Status: Orderedsertraline 50 mg oral tablet 1 tabs, Oral, Daily, # 30 tabs, 0 Refill(s) Start Date: 09/29/14 Status: Ordered Results No data available for this section Immunizations No data available for this section Procedures No data available for this section Social History Social History Type Response Smoking Status Never smoker Assessment and Plan Extracted from: Title: Ambulatory Patient Education Author: Toribio Brito MD Date: Family Medicine Diarrhea Diarrhea is frequent loose and watery bowel movements. It can cause you to feel weak and dehydrated. Dehydration can cause you to become tired and thirsty , have a dry mouth, and have decreased urination that often is dark yellow. Diarrhea is a sign of another problem, most often an infection that will not last long. In most cases, diarrhea typically lasts 2 3 days. However, it can last longer if [...] , fruit juices, whole milk products, and sod as. Your urine should be clear or pale [...] well after each diarrhea episode. Only take [id number] or prescription medicines as directed by your [...] Released: 07/06/2003 Document Revised: 07/02/2013 Document Reviewed: 03/23/2013 [facility] Patient Information 2014 [place]. No follow up information was provided. Extracted from: Title: Office Visit Note Author: Toribio Brito MD Date: 09/29/14 Assessment/Plan Acute diarrhea Stop all otc meds for now.Refused ER. Adult hypothyroidism This issue is stable and appropriate refills, lab, and f /u have been discussed. Benign essential HTN This issue is stable and appropriate refills, lab, and f /u have been discussed. Constipation Stop all otc [...]
[2017-06-22 15:30] VITALS: BMI 28.0
[2017-06-22] MEDS ORDERED: ONDANSETRON 4 MG/2 ML INJECTION IVP PRN (15:40)
--- NOTE | 2017-06-22 15:40 | History & Physical Report ---
History of Present Illness Date: 06/22/17 Chief complaint: R sided weakness HPI: Patient is an 82 yo female who resides at [facility] in full care. Yesterday she noted some right-sided weakness. She did not want staff to let her family know. Finally, when she had to notify her family that she was not coming for Thanksgiving, they convinced her to come in. She has not had any trouble swallowing or with speech. She has noted some tingling and numbness in the right side along with the weakness. No headache or change in vision. She states she has had TIAs in the past, but never a stroke with symptoms which persisted. She is not taking daily aspirin or any other blood thinner. 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 At the [facility] , she is able to be independent in all of her activities of daily living. She is on morphine twice a day and when necessary for chronic back and neck pain. She was hospitalized in November for acute encephalopathy possibly due to accidental medication overdose. Following that hospitalization, she moved into [facility]. Patient was seen in the ER with her family present. She is able to give an accurate history. She reports she was having some high blood pressures at the [place] as high as 180s over 80s, which she states is a little bit high for her. She currently denies symptoms other than the numbness, tingling and weakness on the right side. At the time that I examined her, both she and her daughter think that she has increased in strength on the right side compared to earlier in her ER visit. Patient had carotid sonogram 07/12 showing scattered atherosclerotic plaque without hemodynamically significant carotid stenosis. Echocardiogram 04/09 shows borderline left atrial enlargement, EF 60%, mild diastolic dysfunction, aortic valve sclerosis without stenosis, posterior mitral annular calcification, very mild mitral insufficiency, moderate pulmonary hypertension. Heart catheterization performed 11/08 showed ejection fraction 65%, mild to moderate coronary artery disease. Review of Systems All systems PM: 10-point ROS was reviewed, no additional remarkable complaints except - Musculoskeletal Musculoskeletal: Present: back pain (chronic), neck pain (chronic) - Neurological Neurological: Present: paresthesias (R sided), weakness (R sided) PFSH Medical History HTN (hypertension) H/o Hepatitis A Chronic back and neck pain (DDD) Hyperlipidemia Hypothyroid OA (osteoarthritis of the spine) H/o Rheumatic fever Surgical History: BRITTANY/BSO, tubal ligation, bladder suspension 3, cholecystectomy, appendectomy, C-spine fusion, bilateral cataract removal, right knee replacement, bilateral carpal tunnel surgery Family History: Father-history unknown. Patient was killed when patient was 4 years old. Mother-coronary artery disease. NC at age 49. 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 Og Medications Home Medications Medication Instructions Recorded Confirmed Type Milk of Magnesia (Magnesium 30 ml PO DAILY PRN ml 01/08/17 06/22/17 History hydroxide) 400 mg/5 mL oral suspension Xanax (alprazolam) 0.25 mg tablet See Label Instructions PO BID PRN 01/08/17 History melatonin 5 mg capsule 5 mg PO HS cap 01/08/17 06/22/17 History Ascorbic Acid [Vitamin C] 1,000 mg PO DAILY 06/22/17 06/22/17 History Losartan Potassium [Cozaar] 50 mg PO DAILY 06/22/17 06/22/17 History Morphine Sulfate [Morphine Sulfate 30 mg PO BID 06/22/17 06/22/17 History ER] [place]-3/Dha/Epa/Fish Oil [Fish Oil 1 cap PO DAILY 06/22/17 06/22/17 History 1,000 mg Softgel] Vitamin B Complex [Super B-50 1 each PO DAILY 06/22/17 06/22/17 History Complex] Allergies Allergy/AdvReac Type Severity Reaction Status Date / Time metronidazole Allergy Unknown Verified 12/04/16 16:41 Exam Vital Signs: Temperature 98.4 F 06/22/17 12:08 Pulse Rate 64 06/22/17 13:45 Respiratory Rate 16 06/22/17 12:08 Blood Pressure 152/62 H 06/22/17 13:45 Pulse Oximetry 95 06/22/17 13:45 - Constitutional Present: no acute distress, well nourished, well developed - Routine HEENT Exam Head: Present: normocephalic, atraumatic Eye: Present: EOMI, PERRL ENT: Present: mucous membranes moist, oropharynx clear, dentition normal Comments: ptosis R eye and drooping of side of mouth (r/t past Bradford's Palsy) - Routine Neck Exam Present: supple. Absent: lymphadenopathy, thyromegaly - Routine Respiratory Exam Present: CTA bilaterally. Absent: wheezes - Routine Cardiovascular Exam Present: RRR. Absent: murmur - Routine Abdominal Exam Present: soft, normoactive bowel sounds, non distended. Absent: tenderness - Routine Extremities Exam Present: no edema, normal capillary refill - Routine Skin Exam Present: dry, warm - Routine Neurological Exam Present: alert, oriented X3, CN II-XII intact, moving all extremities, facial asymmetry ((d/t remote h/o Bradford's palsy)), normal speech. Absent: pronator drift, altered mental status machine assembler for puller over strength equal b/l. RUE 4/5, LUE 5/5. RLE 3/5, LLE 5/5. - Detailed Neurological Exam Speech: Absent: expressive aphasia, receptive aphasia, total aphasia, slurred, stutter Cerebellar function: Abnormal right finger to nose - Routine Psychiatric Exam Present: normal affect, normal thought process, good insight - Additional findings Additional findings: Michael CV: regular Lungs: clear bilaterally AB: soft nt/nd MSE: awake alert appropriate. Neuro: right leg weak compared to left. Incoordination of right arm movement. Results - Labs CBC & Chem 7: 06/22/17 12:58 06/22/17 12:58 Labs: Laboratory Tests 06/22/17 12:33 Urine pH 6.5 Ur Specific [place] <=1.005 L Urine Protein Negative Urine Glucose (UA) Negative Urine Ketones Negative Urine Occult Blood Negative Urine Nitrate Negative Urine Urobilinogen 0.2 Ur Leukocyte Esterase Negative - Imaging and Cardiology CT scan - head Additional comments: Date of Exam: 06/22/17 Reason for Exam: right sided weakness >24 hours HX TIAs PROCEDURE: CT head/brain wo con: FINDINGS: Mild atrophy. Old bilateral basal ganglia lacunar infarcts. The ventricles are of normal size, shape, and contour for the patient's age. There are numerous areas of low attenuation in the white matter which most likely represent changes from chronic microvascular ischemia. The brainstem, cerebellum, and cerebral hemispheres otherwise have a normal morphology and CT attenuation. There is no evidence of midline displacement. No hemorrhage, signs of acute territorial stroke, mass effect, mass lesions, or edema is evident. The visualized portions of the skull base, midface, and calvarium demonstrate no abnormality. The paranasal sinuses are well aerated and free of significant disease. The tympanic and mastoid cavities appear normal. IMPRESSION: No acute intracranial abnormality or hemorrhage. Stable head CT. Assessment and Plan (1) Unilateral weakness Current visit: Yes Status: Acute Assessment and Plan: Admission diagnosis: Unilateral R sided weakness - most likely CVA Chronic diagnoses: Gait instability - increased with right weakness Coronary artery disease Hypertension Hyperlipidemia Macrocytic anemia Chronic back and neck pain OA (osteoarthritis of the spine) Hypothyroidism H/o Hepatitis A H/o Rheumatic fever Plan: Admit to observation, Dr. Rodriguez attending, for further work-up and monitoring of probable CVA. MRI brain, echo and carotid US ordered. Check lipid profile in light of suspected CVA. Start daily ASA and continue home meds for chronic issues. Monitor BP closely and monitor on telemetry. SCDs for DVT prophylaxis. Speech, PT, OT consults. Check TSH for hypothyroidism and vitamin B12 for mactocytic anemia. Repeat CBC and BMP in the a.m. Case discussed with Dr. Rodriguez. Previous records reviewed. Patient requests DO NOT RESUSCITATE CODE STATUS. Care to return to Dr. Og upon dismissal. Michael [id number] Have independently interviewed and examined pt. Chart reviewed. Cased discussed with ED provider and my PA. Care plan developed with my supervision; agree with above. 82 y/o female presents to ED secondary to right leg and arm weakness. Noticed yesterday morning. Was attempting to get out of her chair, but right leg would not cooperate. Barely made it back to her bed. Did not want to tell anyone about her symptoms so as not to spoil their Thanksgiving. Weakness persisted. Notes incoordination to right hand and arm. Difficult to walk due to right leg weakness. Notes tingling sensation to right arm and leg. During my interview and examination, she was worried that the SCD on her right leg was not working- could feel the squeezing on her left side, but not right. No change in vision or hearing. No difficulty swallowing or speaking. No recent viral syndrome. Breathing has been stable without SOA, cough, or congestion. Denies chest pressure, pain, or palpitations. Seen in ED. Outside window for thrombolytics. CT brain showing no bleed. Plan: Inpatient admission to [facility] for further evaluation and treatment of right sided weakness, thought to be secondary to CVA-anticipate greater than 2 midnights of care needed. MRI of brain to determine cerebral damage. ECHO and Doppler to check for thrombotic sources. Tele to monitor heart rhythm. PT/OT for restorative modalities. Start ASA therapy. Check lipid profile. Will start simvastatin 40mg night for CV protection-monitor for myalgias as patient has history of myalgias with statins in the past. Care to return to Dr Og at time of discharge from [facility]. DVT Prophylaxis: SCD's Resuscitation Status: Do Not Resuscitate Hospital Course Summary Disclaimer: The visit summary below is not to be considered part of the above Progress Note. Hospital Course: Admission diagnosis: Unilateral R sided weakness - most likely CVA macrocytic anemia Chronic diagnoses: Hypertension Coronary artery disease H/o Hepatitis A Chronic back and neck pain OA (osteoarthritis of the spine) Hyperlipidemia Hypothyroidism OA (osteoarthritis of the spine) H/o Rheumatic fever 06/22/17 -Hospital admission for observation. Admit to observation, Dr. Rodriguez attending, for further work-up and monitoring of probable CVA. MRI brain, echo and carotid US ordered. Start daily ASA and continue home meds for chronic issues. Monitor BP closely and monitor on telemetry. SCDs for DVT prophylaxis. Speech, PT, OT consults. Check TSH for hypothyroidism and vitamin B12 for mactocytic anemia. Repeat CBC and BMP in the a.m. Case discussed with Dr. Rodriguez. Previous records reviewed. Patient requests DO NOT RESUSCITATE CODE STATUS. Care to return to Dr. Og upon dismissal.
[2017-06-22] MEDS ORDERED: HYDROMORPHONE 2 MG TABLET PO PRN (16:12)
[2017-06-22] MEDS ORDERED: ALPRAZolam 0.25 MG TABLET PO PRN (16:12)
[2017-06-22] MEDS: ASPIRIN 81 MG CHEWABLE TABLET PO SCH (17:54)
[2017-06-22] MEDS: MELATONIN 5 MG TABLET PO SCH (20:36)
[2017-06-22] MEDS: CELECOXIB 200 MG CAPSULE PO SCH (20:36)
[2017-06-22] MEDS: SENNA + DOCUSATE TABLET PO SCH (20:36)
[2017-06-22] MEDS: SERTRALINE 50 MG TABLET PO SCH (20:36)
[2017-06-22] MEDS: RANITIDINE 150 MG TABLET PO SCH (20:36)
[2017-06-22] MEDS: GABAPENTIN 100 MG CAPSULE PO SCH (20:36)
[2017-06-22] MEDS: AMITRIPTYLINE 10 MG TABLET PO SCH (20:36)
[2017-06-23] MEDS: LEVOTHYROXINE 25 MCG TABLET PO SCH (06:17)
[2017-06-23] MEDS: OMEPRAZOLE 20 MG CAPSULE PO SCH (06:18)
[2017-06-23] MEDS: CELECOXIB 200 MG CAPSULE PO SCH ×2 (09:31→21:02)
[2017-06-23] MEDS: OMEGA-3 ACID ESTERS 1 GM CAPSULE PO SCH (09:32)
[2017-06-23] MEDS: ASCORBIC ACID 500 MG TABLET PO SCH (09:32)
[2017-06-23] MEDS: LYSINE 500 MG TABLET PO SCH (09:32)
[2017-06-23] MEDS: ASPIRIN 81 MG CHEWABLE TABLET PO SCH (09:32)
[2017-06-23] MEDS: LOSARTAN 50 MG TABLET PO SCH (09:32)
[2017-06-23] MEDS: GABAPENTIN 100 MG CAPSULE PO SCH ×3 (09:33→21:02)
[2017-06-23] MEDS: VITAMIN B COMPLEX + C TABLET PO SCH (09:33)
[2017-06-23] MEDS: AMLODIPINE 5 MG TABLET PO SCH (09:33)
[2017-06-23] MEDS: RANITIDINE 150 MG TABLET PO SCH ×2 (09:33→21:02)
[2017-06-23] MEDS: DULOXETINE 60 MG CAPSULE PO SCH (09:33)
[2017-06-23] MEDS: SENNA + DOCUSATE TABLET PO SCH ×2 (09:33→21:02)
[2017-06-23] MEDS: CALCIUM CARBONATE 600 MG TABLET PO SCH (09:39)
--- NOTE | 2017-06-23 12:08 | Magnetic Resonance Report ---
Indication: Right sided weakness PROCEDURE: MR head/brain wo con: Encounter: Initial Comparisons: Head CT dated June 22, 2017 and brain MRI dated July 06, 2014 Technique: Multiplanar, multisequence, MR imaging of the head without contrast was acquired. FINDINGS: Mild generalized atrophy. There is a small 7 mm area of acute diffusion restriction in the left posterior limb of the internal capsule near the thalamus seen on axial diffusion-weighted image #13. No other areas of acute diffusion restriction seen. Additional chronic lacunar infarcts in the basal ganglia bilaterally. The ventricles are of normal size, shape, and contour for the patient's age. This has T2/FLAIR hyperintensity as expected. Numerous areas of T2-weighted and T2 FLAIR weighted signal abnormality in the deep frontoparietal white matter that most likely represent small vessel ischemic disease. This is of a degree that is considered to be normal for the patient's age. There is no evidence of an intracranial mass lesion, intracranial hemorrhage, or hydrocephalus. The visualized portions of the orbits, calvarium, paranasal sinuses, and skull base demonstrate no significant abnormality. IMPRESSION: Small acute infarct in the left posterior limb internal capsule. This is in the MCA territory. .
--- NOTE | 2017-06-23 15:54 | Progress Note ---
- Date 06/23/17 Subjective: F/U: Right hemiparesis, acute ischemic stroke in Left MCA territory Right hand control only slightly better. Right leg very weak-hard to ambulate and bear weight due to weakness. No CALLEJAS, visual or hearing changes. Not having difficulty speaking or swallowing. No palpitations or chest pain. Breathing well. Reji nausea or ab pain. Objective Vital signs: Temperature 96.2 F L 06/23/17 15:35 Pulse Rate 63 06/23/17 15:35 Respiratory Rate 16 06/23/17 15:35 Blood Pressure 132/66 06/23/17 15:35 Pulse Oximetry 93 06/23/17 15:35 Height/Weight/BMI: Height 1.52 m Weight 67 kg Body Mass Index 28.0 - Constitutional Present: well nourished, well developed, average body habitus, cooperative - Routine HEENT Exam Head: Present: normocephalic, atraumatic Eye: Present: EOMI, PERRL ENT: Present: mucous membranes moist - Routine Respiratory Exam Present: CTA bilaterally. Absent: respiratory distress, rhonchi, wheezes, crackles - Routine Cardiovascular Exam Present: RRR, no murmur - Routine Abdominal Exam Present: soft, normoactive bowel sounds, non distended, non tender - Routine Extremities Exam Present: no edema, pulses intact. Absent: cyanosis, clubbing - Routine Musculoskeletal Exam Musculoskeletal: Present: no clubbing or cyanosis - Routine Skin Exam Present: dry, warm - Routine Neurological Exam Present: alert, oriented X3, CN II-XII intact, motor deficit (weakness or right upper and lower ext ), vision grossly intact, hearing grossly intact, normal speech. Absent: altered mental status - Routine Psychiatric Exam Present: normal affect, normal thought process, cooperative. 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 Doppler neck and ECHO pending. ASA 81mg started for CV protection. Continue PT/OT to help improve functional status. Start simvastatin 20mg daily due to acute CVA - lipid profile near optimal but acute vacular events can falsely lower lipid results. Blood pressure stable - continue chronic medications and continue to monitor blood pressure. TSH normal . Will need restorative therapies at time of discharge. Discussed IRU vs skilled with pt and daughter. Case discussed with patient's son and daughter. Questions answered. Time spent with patient care 25 minutes. DVT Prophylaxis: SCD's Resuscitation Status: Do Not Resuscitate - Time spent with patient Time with patient PN: 25 minutes Hospital Course Summary Disclaimer: The visit summary below is not to be considered part of the above Progress Note. Hospital Course: Admission diagnosis: Right hemiparesis - most likely CVA Macrocytic anemia Coronary artery disease Hypertension Hyperlipidemia Chronic back and neck pain OA (osteoarthritis of the spine) Hypothyroidism H/o Rheumatic fever H/o Hepatitis A 06/22/17 -Hospital admission. Admit to inpatient, Dr. Rodriguez attending, for further work-up and monitoring of suspected CVA. MRI brain, echo and carotid US ordered. Start daily ASA and continue home meds for chronic issues. Check lipid profile due to suspected CVA. Monitor BP closely and monitor on telemetry. SCDs for DVT prophylaxis. Speech, PT, OT consults. Check TSH for hypothyroidism and vitamin B12 for mactocytic anemia. Repeat CBC and BMP in the a.m. Case discussed with Dr. Rodriguez. Previous records reviewed. Patient requests DO NOT RESUSCITATE CODE STATUS. Care to return to Dr. Og upon dismissal. 06/23/17 Discussed MRI brain result with patient and family. Does show area of acute infarct in left MCA territory. Doppler neck and ECHO pending. ASA 81mg started for CV protection. Continue PT/OT to help improve functional status. Start simvastatin 20mg daily due to acute CVA - lipid profile near optimal but acute vacular events can falsely lower lipid results. Blood pressure stable - continue chronic medications and continue to monitor blood pressure. TSH normal . Will need restorative therapies at time of discharge. Discussed IRU vs skilled with pt and daughter.
[2017-06-23] MEDS ORDERED: ACETAMINOPHEN 325 MG TABLET PO PRN (17:28)
[2017-06-23] MEDS: SIMVASTATIN 20 MG TABLET PO SCH (21:02)
[2017-06-23] MEDS: MELATONIN 5 MG TABLET PO SCH (21:02)
[2017-06-23] MEDS: SERTRALINE 50 MG TABLET PO SCH (21:02)
[2017-06-23] MEDS: AMITRIPTYLINE 10 MG TABLET PO SCH (21:03)
[2017-06-23] MEDS: SALINE FLUSH 10ml SYRINGE IVF PRN (21:05)
[2017-06-23] MEDS: LATANOPROST 0.005% EYE DROPS 2.5ml EACH EYE SCH (21:43)
[2017-06-24] MEDS: OMEPRAZOLE 20 MG CAPSULE PO SCH (06:39)
[2017-06-24] MEDS: LEVOTHYROXINE 25 MCG TABLET PO SCH (06:39)
[2017-06-24] MEDS: ASPIRIN 81 MG CHEWABLE TABLET PO SCH (08:29)
[2017-06-24] MEDS: VITAMIN B COMPLEX + C TABLET PO SCH (08:29)
[2017-06-24] MEDS: SENNA + DOCUSATE TABLET PO SCH ×2 (08:29→20:09)
[2017-06-24] MEDS: ASCORBIC ACID 500 MG TABLET PO SCH (08:29)
[2017-06-24] MEDS: AMLODIPINE 5 MG TABLET PO SCH (08:30)
[2017-06-24] MEDS: GABAPENTIN 100 MG CAPSULE PO SCH ×3 (08:30→20:09)
[2017-06-24] MEDS: LYSINE 500 MG TABLET PO SCH (08:30)
[2017-06-24] MEDS: LOSARTAN 50 MG TABLET PO SCH (08:30)
[2017-06-24] MEDS: CALCIUM CARBONATE 600 MG TABLET PO SCH (08:30)
[2017-06-24] MEDS: OMEGA-3 ACID ESTERS 1 GM CAPSULE PO SCH (08:30)
[2017-06-24] MEDS: DULOXETINE 60 MG CAPSULE PO SCH (08:30)
[2017-06-24] MEDS: CELECOXIB 200 MG CAPSULE PO SCH ×2 (08:30→20:09)
[2017-06-24] MEDS: RANITIDINE 150 MG TABLET PO SCH ×2 (08:30→20:09)
--- NOTE | 2017-06-24 10:22 | Ultrasound Report ---
Indication: CVA PROCEDURE: US carotid doppler BI: Comparison: July 06, 2014 TECHNIQUE: Grayscale, color and duplex Doppler imaging was performed of the carotid systems bilaterally. Velocities in cm/sec - validated velocity measurements with angiographic measurements, velocity criteria are extrapolated from diameter data as defined by the Society of Radiologists in Ultrasound Consensus Conference Radiology 2003; 229;340-346. RIGHT: PSV ICA 85.3 EDV ICA 15.5 PSV CCA 75 EDV CCA 14.7 PSV ECA 91.1 ICA Diameter reduction 10%-30% (1.0-1.2 PSV<110)% LEFT: PSV ICA 104 EDV ICA 22.4 PSV CCA 97.5 EDV CCA 18 PSV ECA 123 ICA Diameter reduction 10%-30% (1.0-1.2 PSV<110)% The right vertebral artery is patent with cephalic flow. The left vertebral artery is patent with cephalic flow. Scattered atherosclerotic plaque in the carotid bulbs and proximal ICAs and bilateral ECAs. No velocity elevation however. IMPRESSION: No hemodynamically significant carotid stenosis. .
[2017-06-24] MEDS ORDERED: FALL RISK - PHARMACY CONSULT XX ONE (14:27)
[2017-06-24] MEDS ORDERED: LOSARTAN 50 MG TABLET PO ONE (14:40)
--- NOTE | 2017-06-24 16:19 | Progress Note ---
- Date 06/24/17 Subjective: F/U: Right hemiparesis, acute ischemic stroke in Left MCA territory Getting more movement to her right hand. Noticing less numbness. Right leg still feels weak and not moving well. No visual/hearing change. No palpitations or chest pain. Breathing well. Eating well. Stools slow-took extra MOM today. Objective Vital signs: Temperature 96.3 F L 06/24/17 15:04 Pulse Rate 60 06/24/17 15:04 Respiratory Rate 16 06/24/17 15:04 Blood Pressure 121/65 06/24/17 15:04 Pulse Oximetry 93 06/24/17 15:04 Height/Weight/BMI: Height 1.52 m Weight 66.7 kg Body Mass Index 28.0 - Constitutional Present: well nourished, well developed, average body habitus, cooperative - Routine HEENT Exam Head: Present: normocephalic, atraumatic Eye: Present: EOMI, PERRL ENT: Present: mucous membranes moist - Routine Respiratory Exam Present: CTA bilaterally. Absent: rales, respiratory distress, rhonchi, wheezes , crackles - Routine Cardiovascular Exam Present: RRR, no murmur - Routine Abdominal Exam Present: soft, normoactive bowel sounds, non distended, non tender - Routine Extremities Exam Present: no edema, pulses intact. Absent: cyanosis, clubbing - Routine Musculoskeletal Exam Musculoskeletal: Present: no clubbing or cyanosis - Routine Skin Exam Present: dry, warm - Routine Neurological Exam Present: alert, oriented X3, CN II-XII intact, motor deficit (right leg with weakness ), moving all extremities, vision grossly intact, hearing grossly intact, facial asymmetry (Bradford's Palsy ), normal speech. Absent: altered mental status - Routine Psychiatric Exam Present: normal affect, normal thought process, cooperative, good insight, good judgment. 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 Doppler neck normal. ECHO results pending. Encourage continuation of therapy to maximize functional status. Discussed about IRU vs Skilled at her NH. Leaning towards IRU. Will place IRU screen. Recheck CMP in am due to increased losartan and starting simvastatin. Time spent with patient care 25 minutes. DVT Prophylaxis: SCD's Resuscitation Status: Do Not Resuscitate - Time spent with patient Time with patient PN: 25 minutes Hospital Course Summary Disclaimer: The visit summary below is not to be considered part of the above Progress Note. Hospital Course: Admission diagnosis: Right hemiparesis - most likely CVA Macrocytic anemia Coronary artery disease Hypertension Hyperlipidemia Chronic back and neck pain OA (osteoarthritis of the spine) Hypothyroidism H/o Rheumatic fever H/o Hepatitis A 06/22/17 -Hospital admission. Admit to inpatient, Dr. Rodriguez attending, for further work-up and monitoring of suspected CVA. MRI brain, echo and carotid US ordered. Start daily ASA and continue home meds for chronic issues. Check lipid profile due to suspected CVA. Monitor BP closely and monitor on telemetry. SCDs for DVT prophylaxis. Speech, PT, OT consults. Check TSH for hypothyroidism and vitamin B12 for mactocytic anemia. Repeat CBC and BMP in the a.m. Case discussed with Dr. Rodriguez. Previous records reviewed. Patient requests DO NOT RESUSCITATE CODE STATUS. Care to return to Dr. Og upon dismissal. 06/23/17 Discussed MRI brain result with patient and family. Does show area of acute infarct in left MCA territory. Doppler neck and ECHO pending. ASA 81mg started for CV protection. Continue PT/OT to help improve functional status. Start simvastatin 20mg daily due to acute CVA - lipid profile near optimal but acute vacular events can falsely lower lipid results. Blood pressure stable - continue chronic medications and continue to monitor blood pressure. TSH normal. Will need restorative therapies at time of discharge. Discussed IRU vs skilled with pt and daughter. 06/24/17 Will increase losartan to 100mg daily as BP with elevation (extra 50mg given today). Doppler neck normal. ECHO results pending. Encourage continuation of therapy to maximize functional status. Discussed about IRU vs Skilled at her NH. Leaning towards IRU. Will place IRU screen. Recheck CMP in am due to increased losartan and starting simvastatin.
[2017-06-24] MEDS: LATANOPROST 0.005% EYE DROPS 2.5ml EACH EYE SCH (20:08)
[2017-06-24] MEDS: AMITRIPTYLINE 10 MG TABLET PO SCH (20:09)
[2017-06-24] MEDS: SERTRALINE 50 MG TABLET PO SCH (20:09)
[2017-06-24] MEDS: MELATONIN 5 MG TABLET PO SCH (20:09)
[2017-06-24] MEDS: SIMVASTATIN 20 MG TABLET PO SCH (20:09)
[2017-06-25] MEDS: OMEPRAZOLE 20 MG CAPSULE PO SCH (05:49)
[2017-06-25] MEDS: LEVOTHYROXINE 25 MCG TABLET PO SCH (05:49)
[2017-06-25] MEDS: CELECOXIB 200 MG CAPSULE PO SCH (08:56)
[2017-06-25] MEDS: ASPIRIN 81 MG CHEWABLE TABLET PO SCH (08:56)
[2017-06-25] MEDS: DULOXETINE 60 MG CAPSULE PO SCH (08:56)
[2017-06-25] MEDS: AMLODIPINE 5 MG TABLET PO SCH (08:56)
[2017-06-25] MEDS: ASCORBIC ACID 500 MG TABLET PO SCH (08:56)
[2017-06-25] MEDS: CALCIUM CARBONATE 600 MG TABLET PO SCH (08:56)
[2017-06-25] MEDS: OMEGA-3 ACID ESTERS 1 GM CAPSULE PO SCH (08:57)
[2017-06-25] MEDS: RANITIDINE 150 MG TABLET PO SCH (08:57)
[2017-06-25] MEDS: LYSINE 500 MG TABLET PO SCH (08:57)
[2017-06-25] MEDS: VITAMIN B COMPLEX + C TABLET PO SCH (08:57)
[2017-06-25] MEDS: SENNA + DOCUSATE TABLET PO SCH (08:57)
[2017-06-25] MEDS: GABAPENTIN 100 MG CAPSULE PO SCH ×2 (08:57→15:45)
[2017-06-25] MEDS: SALINE FLUSH 10ml SYRINGE IVF PRN (08:58)
[2017-06-25] MEDS ORDERED: LOSARTAN 100 MG TABLET PO SCH (09:00)
--- NOTE | 2017-06-25 10:58 | Progress Note ---
<Wendy Alvarez - Last Filed: 06/25/17 10:55> - Date 06/25/17 Subjective: F/U: Right hemiparesis, acute ischemic stroke in Left MCA territory Patient seen sitting in her chair before breakfast. She reports she is doing well. She still has numbness in her right middle finger and in her right foot. She feels like she is making gains each day, just wishes it would "go faster." She has been able to get up with her walker to go back and forth to the bathroom. She had a large BM today. No chest pain, no shortness of breath, no headache. She is tolerating the Zocor thus far. She is concerned because she has had muscle aches when on a statin in the past. Objective Vital signs: Temperature 97.2 F 06/25/17 07:00 Pulse Rate 59 L 06/25/17 07:00 Respiratory Rate 18 06/25/17 07:00 Blood Pressure 143/64 H 06/25/17 07:00 Pulse Oximetry 94 06/25/17 07:00 Height/Weight/BMI: Height 1.52 m Weight 67.7 kg Body Mass Index 28.0 - Constitutional Present: no acute distress, well nourished, well developed - Routine Respiratory Exam Present: CTA bilaterally. Absent: wheezes - Routine Cardiovascular Exam Present: RRR, S1, S2. Absent: murmur - Routine Abdominal Exam Present: soft, non distended. 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 She is able to lift the R arm over her head. SHe is able to lift the L leg off of her recliner. 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 Tolerating the addition of Zocor. Doppler neck normal. ECHO results pending. Awaiting IRU screen. Patient would like to go back to [facility] if she does not qualify for IRU. If she does qualify for IRU, she wants further information regarding IRU to determine if she will decide to proceed with this vs. going back to the [facility]. Patient should be able to D/C to either IRU or the [facility] today. Hospital Course Summary Disclaimer: The visit summary below is not to be considered part of the above Progress Note. Hospital Course: Admission diagnosis: Right hemiparesis - most likely CVA Macrocytic anemia Coronary artery disease Hypertension Hyperlipidemia Chronic back and neck pain OA (osteoarthritis of the spine) Hypothyroidism H/o Rheumatic fever H/o Hepatitis A 06/22/17 -Hospital admission. Admit to inpatient, Dr. Rodriguez attending, for further work-up and monitoring of suspected CVA. MRI brain, echo and carotid US ordered. Start daily ASA and continue home meds for chronic issues. Check lipid profile due to suspected CVA. Monitor BP closely and monitor on telemetry. SCDs for DVT prophylaxis. Speech, PT, OT consults. Check TSH for hypothyroidism and vitamin B12 for mactocytic anemia. Repeat CBC and BMP in the a.m. Case discussed with Dr. Rodriguez. Previous records reviewed. Patient requests DO NOT RESUSCITATE CODE STATUS. Care to return to Dr. Og upon dismissal. 06/23/17 Discussed MRI brain result with patient and family. Does show area of acute infarct in left MCA territory. Doppler neck and ECHO pending. ASA 81mg started for CV protection. Continue PT/OT to help improve functional status. Start simvastatin 20mg daily due to acute CVA - lipid profile near optimal but acute vacular events can falsely lower lipid results. Blood pressure stable - continue chronic medications and continue to monitor blood pressure. TSH normal. Will need restorative therapies at time of discharge. Discussed IRU vs skilled with pt and daughter. 06/24/17 Will increase losartan to 100mg daily as BP with elevation (extra 50mg given today). Doppler neck normal. ECHO results pending. Encourage continuation of therapy to maximize functional status. Discussed about IRU vs Skilled at her [place]. Leaning towards IRU. Will place IRU screen. Recheck CMP in am due to increased losartan and starting simvastatin. 06/25/17 Blood pressures improved with increased losartan of 100 mg daily. Tolerating the addition of Zocor. Doppler neck normal. ECHO results pending. Awaiting IRU screen. Patient would like to go back to [facility] if she does not qualify for IRU. If she does qualify for IRU, she wants further information regarding IRU to determine if she will decide to proceed with this vs. going back to the [facility]. Patient should be able to D/C to either IRU or the [facility] today. <Radha Seay - Last Filed: 06/25/17 17:04> - Date 06/25/17 Objective Vital signs: Temperature 98.0 F 06/25/17 15:00 Pulse Rate 58 L 06/25/17 16:00 Respiratory Rate 16 06/25/17 15:00 Blood Pressure 124/57 06/25/17 15:00 Pulse Oximetry 93 06/25/17 15:00 Height/Weight/BMI: Height 1.52 m Weight 67.7 kg Body Mass Index 28.0 Results - Labs CBC & Chem 7: 06/23/17 04:15 06/25/17 04:48 Assessment and Plan (1) CVA (cerebral vascular accident) Current visit: Yes Status: Acute Assessment and Plan: 06/25/2017-I have examined the patient, and reviewed this chart, the patient history, and the BONDING AGENT's/PA's documented findings as above. We discussed and formulated the assessment and plan as above with the additions below.-Dr. Seay Patient was seen today in her room. She is feeling well. She denies any new problems with weakness. 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 Her right arm and leg weakness are improving. She denies any palpitations. She is eating and drinking well. On exam she is alert and oriented and in no acute distress. Chest is clear to auscultation. Cardiovascular: Regular rate and rhythm. Abdomen is soft and nontender. Extremities are free of edema. On exam she has slight weakness in the right upper extremity and right lower extremity compared to the left. 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 Telemetry shows sinus rhythm with occasional PVCs The patient states she chronically has pain and has not tried going off of Celebrex. She states she takes morphine twice daily for pain. Overall, the patient is doing well. Regarding recent ischemic stroke- continue aspirin that was started this hospitalization, continue statin and monitor for myalgias, add Lovenox for DVT prophylaxis, discontinue Celebrex due to increased risk of stroke Regarding chronic pain-monitor for worsening off of Celebrex On review of lab, she has leukopenia, elevated lymphocyte percent, and elevated globulin. Will discuss with chief lifestyle officer. The patient denies any history of problems with her white count or any cancer. Echocardiogram is pending Continue on telemetry to monitor for A. fib with recent CVA. Telemetry during her acute stay as an inpatient shows sinus rhythm Transfer to inpatient rehabilitation today. Hospital Course Summary Disclaimer: The visit summary below is not to be considered part of the above Progress Note.
[2017-06-25 15:30] VITALS: BP 124/57; RESP 16; TEMP 98; O2SAT 93
[2017-06-25 16:29] VITALS: PULSE 58
--- NOTE | 2017-06-25 16:43 | Discharge Summary ---
<Wendy Alvarez - Last Filed: 06/25/17 16:37> Discharge Information Date of admission: 06/22/17 14:54 Anticipated date of discharge: 06/25/17 Attending Physician: Radha Seay MD Primary care physician: Brendan Og MD Consults: - Discharge Diagnosis (1) CVA (cerebral vascular accident) Status: Acute Admission diagnosis: Unilateral R sided weakness - most likely CVA Dismissal diagnosis: CVA Chronic diagnoses: Gait instability - increased with right weakness Coronary artery disease Hypertension Hyperlipidemia Macrocytic anemia Chronic back and neck pain OA (osteoarthritis of the spine) Hypothyroidism H/o Hepatitis A H/o Rheumatic fever - Procedures Procedures: Echo results are pending - Laboratory Labs: 06/23/17 04:15 06/25/17 04:48 - Radiology Radiology: Date of Exam: 06/23/17 Indication: Right sided weakness PROCEDURE: MR head/brain wo con FINDINGS: Mild generalized atrophy. There is a small 7 mm area of acute diffusion restriction in the left posterior limb of the internal capsule near the thalamus seen on axial diffusion-weighted image #13. No other areas of acute diffusion restriction seen. Additional chronic lacunar infarcts in the basal ganglia bilaterally. The ventricles are of normal size, shape, and contour for the patient's age. This has T2/FLAIR hyperintensity as expected. Numerous areas of T2-weighted and T2 FLAIR weighted signal abnormality in the deep frontoparietal white matter that most likely represent small vessel ischemic disease. This is of a degree that is considered to be normal for the patient's age. There is no evidence of an intracranial mass lesion, intracranial hemorrhage, or hydrocephalus. The visualized portions of the orbits, calvarium, paranasal sinuses, and skull base demonstrate no significant abnormality. IMPRESSION: Small acute infarct in the left posterior limb internal capsule. This is in the MCA territory. Date of Exam: 06/22/17 Indication: right sided weakness >24 hours HX TIAs PROCEDURE: CT head/brain wo con: FINDINGS: Mild atrophy. Old bilateral basal ganglia lacunar infarcts. The ventricles are of normal size, shape, and contour for the patient's age. There are numerous areas of low attenuation in the white matter which most likely represent changes from chronic microvascular ischemia. The brainstem, cerebellum, and cerebral hemispheres otherwise have a normal morphology and CT attenuation. There is no evidence of midline displacement. No hemorrhage, signs of acute territorial stroke, mass effect, mass lesions, or edema is evident. The visualized portions of the skull base, midface, and calvarium demonstrate no abnormality. The paranasal sinuses are well aerated and free of significant disease. The tympanic and mastoid cavities appear normal. IMPRESSION: No acute intracranial abnormality or hemorrhage. Stable head CT. Date of Exam: 06/22/17 Type of Exam: US carotid doppler BI Reason for Exam: CVA Velocities in cm/sec - validated velocity measurements with angiographic measurements, velocity criteria are extrapolated from diameter data as defined by the Society of Radiologists in Ultrasound Consensus Conference Radiology 2003; 229;340-346. RIGHT: PSV ICA 85.3 EDV ICA 15.5 PSV CCA 75 EDV CCA 14.7 PSV ECA 91.1 ICA Diameter reduction 10%-30% (1.0-1.2 PSV<110)% LEFT: PSV ICA 104 EDV ICA 22.4 PSV CCA 97.5 EDV CCA 18 PSV ECA 123 ICA Diameter reduction 10%-30% (1.0-1.2 PSV<110)% The right vertebral artery is patent with cephalic flow. The left vertebral artery is patent with cephalic flow. Scattered atherosclerotic plaque in the carotid bulbs and proximal ICAs and bilateral ECAs. No velocity elevation however. IMPRESSION: No hemodynamically significant carotid stenosis. History of Present Illness HPI: Patient is an 82 yo female who resides at [facility] in full care. Yesterday she noted some right-sided weakness. She did not want staff to let her family know. Finally, when she had to notify her family that she was not coming for Thanksgiving, they convinced her to come in. She has not had any trouble swallowing or with speech. She has noted some tingling and numbness in the right side along with the weakness. No headache or change in vision. She states she has had TIAs in the past, but never a stroke with symptoms which persisted. She is not taking daily aspirin or any other blood thinner. 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 At the long term , she is able to be independent in all of her activities of daily living. She is on morphine twice a day and when necessary for chronic back and neck pain. She was hospitalized in November for acute encephalopathy possibly due to accidental medication overdose. Following that hospitalization, she moved into [facility]. Patient was seen in the ER with her family present. She is able to give an accurate history. She reports she was having some high blood pressures at the [place] as high as 180s over 80s, which she states is a little bit high for her. She currently denies symptoms other than the numbness, tingling and weakness on the right side. At the time that I examined her, both she and her daughter think that she has increased in strength on the right side compared to earlier in her ER visit. Patient had carotid sonogram 07/12 showing scattered atherosclerotic plaque without hemodynamically significant carotid stenosis. Echocardiogram 04/09 shows borderline left atrial enlargement, EF 60%, mild diastolic dysfunction, aortic valve sclerosis without stenosis, posterior mitral annular calcification, very mild mitral insufficiency, moderate pulmonary hypertension. Heart catheterization performed 11/08 showed ejection fraction 65%, mild to moderate coronary artery disease. Objective Vital signs: Temperature 98.0 F 06/25/17 15:00 Pulse Rate 58 L 06/25/17 16:00 Respiratory Rate 16 06/25/17 15:00 Blood Pressure 124/57 06/25/17 15:00 Pulse Oximetry 93 06/25/17 15:00 Height/Weight/BMI: Height 1.52 m Weight 67.7 kg Body Mass Index 28.0 - Constitutional Present: no acute distress, well nourished, well developed - Routine HEENT Exam Eye: Present: EOMI ENT: Present: mucous membranes moist - Routine Respiratory Exam Present: CTA bilaterally. Absent: wheezes - Routine Cardiovascular Exam Present: RRR, S1, S2. Absent: murmur - Routine Abdominal Exam Present: soft, normoactive bowel sounds, non distended. Absent: tenderness - Routine Extremities Exam Present: no edema, normal capillary refill - Routine Skin Exam Present: dry, warm - Routine Neurological Exam Present: alert, oriented X3, moving all extremities, facial asymmetry (residual from past h/o Bradford's palsy). Absent: altered mental status decreased strength in R compared to L leg. 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 - Routine Lymphatic Exam Lymphatic: Absent: adenopathy - Routine Psychiatric Exam Present: normal affect, normal thought process, cooperative Hospital Course This is a general summary of the patient's hospital course. For more details refer to the complete medical record. Hospital course: 06/22/17 -Hospital admission. Admit to inpatient, Dr. Rodriguez attending, for further work-up and monitoring of suspected CVA. MRI brain, echo and carotid US ordered. Start daily ASA and continue home meds for chronic issues. Check lipid profile due to suspected CVA. Monitor BP closely and monitor on telemetry. SCDs for DVT prophylaxis. Speech, PT, OT consults. Check TSH for hypothyroidism and vitamin B12 for mactocytic anemia. Repeat CBC and BMP in the a.m. Case discussed with Dr. Rodriguez. Previous records reviewed. Patient requests DO NOT RESUSCITATE CODE STATUS. Care to return to Dr. Og upon dismissal. 06/23/17 Discussed MRI brain result with patient and family. Does show area of acute infarct in left MCA territory. Doppler neck and ECHO pending. ASA 81mg started for CV protection. Continue PT/OT to help improve functional status. Start simvastatin 20mg daily due to acute CVA - lipid profile near optimal but acute vacular events can falsely lower lipid results. Blood pressure stable - continue chronic medications and continue to monitor blood pressure. TSH normal. 06/24/17 Will increase losartan to 100mg daily as BP with elevation (extra 50mg given today). Doppler neck normal. ECHO results pending. Encourage continuation of therapy to maximize functional status. Will place IRU screen. 06/25/17 Blood pressures improved with increased losartan of 100 mg daily. Tolerating the addition of Zocor. Doppler neck normal. ECHO results pending. Discharge today to IRU for further strengthening. Would recommend DC of Zoloft as patient is on Cymbalta 60qd and Elavil 10mg qd. At age 82, she is at increased risk of serotonin syndrome with taking TCA, SNRI and SSRI. Time spent with patient: discharge greater than 30 minutes DVT Prophylaxis: SCD's Discharge Plan - Discharge Disposition Discharge Date: 06/25/17 Disposition: 60 To [facility] INPT Rehab *Condition: Stable Reason For Visit (Visit label in EMR): right sided weakness suspect CVA - Discharge Medications *Discharge Medications: New Aspirin Chewable [ASA] 81 mg PO DAILY tab.chew Losartan [Cozaar] 100 mg PO DAILY tab Sennosides [Natural Senna Laxative] 17.2 mg PO BID #30 tab Acetaminophen [Tylenol] 650 mg PO Q5H PRN tab PRN Reason: Discomfort Simvastatin [Zocor] 20 mg PO HS tab Continue Morphine Sulfate [Morphine Sulfate ER] 30 mg PO BID Ascorbic Acid [Vitamin C] 1,000 mg PO DAILY Vitamin B Complex [Super B-50 Complex] 1 each PO DAILY Latanoprost 1 drop EACH EYE HS melatonin 5 mg capsule 5 mg PO HS cap Cymbalta (duloxetine) 60 mg capsule,delayed release 60 mg PO DAILY #30 cap calcium carbonate 600 mg calcium (1,500 mg) tablet 600 mg PO DAILY #30 tab Klor-Con M20 (potassium chloride ER) 20 mEq tablet,(part/cryst) 20 meq PO BID #60 tab levothyroxine 25 mcg tablet 25 mcg PO ACB #30 tab hydromorphone 4 mg tablet 4 mg PO TID PRN #90 tab PRN Reason: pain amitriptyline 10 mg tablet 10 mg PO HS #30 tab Xanax (alprazolam) 0.25 mg tablet See Label Instructions PO BID PRN PRN Reason: anxiety Celebrex (Celecoxib) 200 mg capsule 200 mg PO BID #60 cap Norvasc (amlodipine) 5 mg tablet 5 mg PO DAILY #30 tab Prilosec (Omeprazole) 20 mg capsule,delayed release 20 mg PO ACB #30 cap Zantac (Ranitidine) 150 mg tablet 150 mg PO BID #60 tab Neurontin (gabapentin) 100 mg capsule 100 mg PO TID #90 cap lysine 500 mg tablet 1,000 mg PO DAILY #60 tab Changed Milk of Magnesia [Mom] 30 ml PO DAILY #0 ml [place]-3/Dha/Epa/Fish Oil [Fish Oil 1,000 mg Softgel] 1 cap PO BID #0 Sucralfate [Carafate] 1 g PO AC PRN #31 tab PRN Reason: digestion Discontinued Losartan Potassium [Cozaar] 50 mg PO DAILY Zoloft (sertraline) 25 mg tablet 50 mg PO HS #62 tab sennosides-docusate sodium 8.6 mg-50 mg tablet 1 tab PO BID #120 tab - Discharge Packet/Instructions *Diet: Regular diet *Activity: As tolerated and as recommended by PT/OT *Pain Management/Treatment: N/a *Wound Care: N/a *Expected Signs/Symptoms: Continued increase in strength and function *Notify Physician if: you develop headache or weakness *During Business Hours Contact: nurse in the rehab unit *After Business Hours Contact: nurse in the rehab unit *Pending Lab/Results: No Pending Lab - IRU/GEN Discharge/Transfer - Referrals/Follow Up *Referrals/Follow Up: Brendan Og MD [Family Provider] - - Patient Handouts - Dismissal Complete Discharge Instructions are:: Complete <Radha Seay - Last Filed: 06/25/17 17:05> Discharge Information Date of admission: 06/22/17 14:54 Attending Physician: Radha Seay MD Primary care physician: Brendan Og MD Consults: 06/24/17 IRU Screening [Inpatient Rehab Screening] [CONS] Routine Screen requested by:: Physician Comment Text:: Acute CVA with R hemiparesis. - Discharge Diagnosis (1) CVA (cerebral vascular accident) Status: Acute - Laboratory Labs: 06/23/17 04:15 06/25/17 04:48 Objective Vital signs: Temperature 98.0 F 06/25/17 15:00 Pulse Rate 58 L 06/25/17 16:00 Respiratory Rate 16 06/25/17 15:00 Blood Pressure 124/57 06/25/17 15:00 Pulse Oximetry 93 06/25/17 15:00 Height/Weight/BMI: Height 1.52 m Weight 67.7 kg Body Mass Index 28.0 Hospital Course This is a general summary of the patient's hospital course. For more details refer to the complete medical record. Hospital course: 06/25/2017-I have examined the patient, and reviewed this chart, the patient history, and the COIL WINDING MACHINES SET UP MECHANIC's/PA's documented findings as above. We discussed and formulated the assessment and plan as above with the additions below.-Dr. Seay Patient was seen today in her room. She is feeling well. She denies any new problems with weakness. 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 Her right arm and leg weakness are improving. She denies any palpitations. She is eating and drinking well. On exam she is alert and oriented and in no acute distress. Chest is clear to auscultation. Cardiovascular: Regular rate and rhythm. Abdomen is soft and nontender. Extremities are free of edema. On exam she has slight weakness in the right upper extremity and right lower extremity compared to the left. 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 Telemetry shows sinus rhythm with occasional PVCs The patient states she chronically has pain and has not tried going off of Celebrex. She states she takes morphine twice daily for pain. Overall, the patient is doing well. Regarding recent ischemic stroke- continue aspirin that was started this hospitalization, continue statin and monitor for myalgias, add Lovenox for DVT prophylaxis, discontinue Celebrex due to increased risk of stroke Regarding chronic pain-monitor for worsening off of Celebrex On review of lab, she has leukopenia, elevated lymphocyte percent, and elevated globulin. Will discuss with cellophane bath mixer. The patient denies any history of problems with her white count or any cancer. Echocardiogram is pending Continue on telemetry to monitor for A. fib with recent CVA. Telemetry during her acute stay as an inpatient shows sinus rhythm Transfer to inpatient rehabilitation today. Discharge Plan - IRU/GEN Discharge/Transfer
--- NOTE | 2017-06-25 23:05 | Echocardiogram ---
DATE OF PROCEDURE June 25, 2017 This is a two-dimensional echo with spectral Doppler, color-flow and M-mode. It was obtained in a patient with CVA. Left atrial dimension is normal. Left ventricular end-diastolic dimension is normal. Left ventricular wall thickness is increased. LV systolic function is normal with ejection fraction of about 66%. Right atrium is normal. Right ventricle is normal. Aortic root dimension is normal. Mitral annulus is calcified. Mitral valve leaflets are normal with mild mitral regurgitation. Aortic valve shows fibrocalcific changes with no stenosis. Trace of aortic insufficiency is present. Tricuspid valve shows mild tricuspid regurgitation with normal estimated pulmonary artery systolic pressure of 27. Pulmonary valve shows no pulmonary insufficiency. There is no pericardial effusion. Grossly, there is no intracardiac thrombus or mass. IMPRESSION 1. Grossly, no intracardiac thrombus or mass. 2. Normal LV systolic function with ejection fraction of 66%. 3. Concentric left ventricular hypertrophy. 4. Mitral annulus calcification with mild mitral regurgitation. 5. Aortic sclerosis with trace of aortic insufficiency. 6. Mild tricuspid regurgitation with normal estimated pulmonary artery systolic pressure of 27. MTDD
== END 2017-06-25 16:50 | DRG 65 ==
LOC: ED 12:06 → MED 14:54 → SUATTDRO 14:54 → MED 15:25
PROVIDERS: ADMIT Hospitalist; ATTEND Internal Medicine

== ENCOUNTER 2017-06-25 16:50 | Inpatient (IN) ==
--- NOTE | 2017-06-25 17:28 | IRU History & Physical Report ---
HPI IRU Date: 723 Chief complaint: Right sided weakness HPI: Ms. Iglesias is a very pleasant 82-year-old female referred by Dr. Ryan Rodriguez , hospitalist. Her primary care physician is Dr. Brendan Og. In October or November of 2016 she was admitted to the hospital due to an accidental medication overdose. Following that she was transferred to [facility] where she has been ever since. She is normally independent at that location. She does use a 4 wheeled walker but otherwise is independent with her activities of daily living. Recently she developed some right-sided weakness starting on or about 2016. She was sitting in her chair in the morning after doing her devotions. She tried to get up but could not do so. She fell back in the chair. Ultimately she was able to scoot forward and fell over a table. She did not specifically injure herself at that time according to the patient. She initially did not want her family to know but ultimately had to tell them. At that point she was brought to the emergency department where she was evaluated and admitted to acute care on 06/22/2017. Blood pressures were running around 180 systolic. It is not clear if this was the case at [facility] or if it was just in the emergency department. She thought that she had been on aspirin at [facility] but according to transfer records she was not. She underwent CT scan which was negative. An MRI of the brain was performed on 06/23/2017 demonstrating an acute infarct in the left posterior limb internal capsule within the middle cerebral artery territory. A prior carotid Doppler study in June 2014 showed atherosclerosis but no hemodynamically significant stenoses. A current carotid Doppler study was performed during her acute care stay, again demonstrating atherosclerosis but no significant hemodynamic stenoses. Echocardiogram in 2010 demonstrated borderline left atrial enlargement, normal ejection fraction of 60% with mild diastolic dysfunction. There was some mild mitral insufficiency and moderate pulmonary hypertension. She did undergo a cardiac catheterization in October 2011 demonstrating mild to moderate coronary disease but with no intervention recommended. A repeat echocardiogram was done during her current acute admission. This reveals normal ejection fraction of 74%. Has fairly heavy calcification of mitral valve leaflets as well as the mitral valve annulus and aortic valve annulus. There is mild mitral regurgitation, aortic insufficiency and tricuspid regurgitation. Estimation of right ventricular systolic pressure is 43 mmHg based on tricuspid regurgitant flow 2.9 m/s. No intracardiac masses are seen. She was admitted to acute care. There was no evidence of speech difficulty or swallowing (she was evaluated by speech therapy on acute). Aspirin therapy was begun. She was also started on simvastatin 20 mg daily. She does have history of myalgias by report with use of a prior statin but thus far has tolerated simvastatin without difficulty. She does have chronic pain primarily involving the entire spine and in particular her neck. She is on morphine regularly for this as well as as needed Dilaudid. She lives at [facility] but has been independent at that site. She does not have any stairs to climb. She requests no heroic efforts be undertaken in the event of a cardiac or pulmonary arrest. Prior level of functioning: Patient was independent with eating, grooming, upper and lower body dressing, toileting. She was modified independent for bathing, bed/chair/wheelchair transfers, toilet transfers and walking with a rolling walker. She was modified independent for stair climbing. Current level of functioning: She is modified independent for eating but supervision level for grooming. She is supervision level for upper body dressing , moderate assistance required for lower body dressing, minimal assistance for toileting, bed/chair/wheelchair transfers, toilet transfers and walking. She is able to walk with a rolling walker 200 feet. The following medical conditions are noted and require active monitoring and/or management: 1. Recent left hemispheric CVA with risk for further neurologic decline including difficulty swallowing. 2. Hypertension, not controlled in her normal environment. 3. History of myalgias with statin. She has been recently started on simvastatin and will need to be monitored for muscle weakness and myalgias. 4. Chronic pain. This is primarily in the neck and throughout the spine. She is on morphine regularly at [facility]. She has also been on Celebrex twice daily. This has been discontinued by the hospitalists and she will be monitored for pain recurrence in this regard. 5. Leukopenia plus elevated globulins. Suspicion is for neoplastic process, possibly consistent with myeloma. The following therapies will be needed: 1. Physical therapy: for transfers and ambulation and stairs. 2. Occupational therapy: for ADL's and transfers. 3. Medical management: for the above conditions. 4. 24 hour Rehabilitation Nursing to monitor and address the following: Careful neurologic monitoring, pain management in view of her chronic pain in her back and hips, monitoring for swallowing difficulty. [facility] Patient Stated Medical History Transient Ischemic Attacks ( Yes TIA) Rheumatic Fever Yes Gastrointestinal Bleeding Yes Ulcer Yes Hx Incontinence Yes Hx Urinary Tract Infection Yes Other Musculoskeletal Yes: chronic back pain Clostridium Difficile Yes Shingles Yes: summer 2016 on back Clinic Medical History Unilateral weakness (Acute Medical) CVA (cerebral vascular accident) (Acute Medical) CAD (coronary artery disease) (Acute Medical) HTN (hypertension) (Acute Medical) Hepatitis (Acute Medical) Herniated disc (Acute Medical) Hyperlipidemia (Acute Medical) Hypothyroid (Acute Medical) OA (osteoarthritis of the spine) (Acute Medical) Rheumatic fever (Acute Medical) Scarlet fever (Acute Medical) Surgical History: BRITTANY/BSO, tubal ligation, bladder suspension 3, cholecystectomy, appendectomy, C-spine fusion, bilateral cataract removal, right knee replacement, bilateral carpal tunnel surgery Family History: Patient states that her father when she was only 4 years old. She does not know much about his health. Her mother when the patient was around 18. She of sudden apparently related to heart disease. Patient's daughter at age 10 from gas gangrene infection. - Social History Smoking status: Never smoker Substance use type: does not use Alcohol intake: never Alcohol intake frequency: does not drink Housing: assisted living facility Household members: caregiver Does patient use chewing tobacco?: No Current residence: Assisted Living Social history: Patient's about 6 years ago. 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 They have had 6 children. A daughter at age 10 from gas gangrene infection. Review of Systems - Constitutional Constitutional: Absent: anorexia, chills, fatigue, fever(s), headache(s), lethargy, malaise, night sweats, weakness, weight gain, weight loss - EENMT Eyes: Absent: blurry vision, change in vision, diplopia Mouth/Throat: Absent: changes in swallowing, painful swallowing, change in taste , bleeding gums, change in voice - Cardiovascular Cardiovascular: Absent: chest pain, palpitations, syncope, dyspnea on exertion, orthopnea, edema, cyanosis, heart murmur Rhythm: Present: regular rhythm Vascular: Absent: intermittent claudication, pedal edema, unilateral swelling - Respiratory Respiratory: Absent: cough, dyspnea, hemoptysis, dyspnea on exertion, wheezing, pain on inspiration, chest congestion, excessive phlegm production - Gastrointestinal Gastrointestinal: Absent: abdominal pain, change in bowel habits, constipation, diarrhea, dyspepsia, dysphagia, early satiety, hematochezia, melena, nausea, vomiting - Genitourinary Genitourinary: Present: urinary incontinence - Musculoskeletal Musculoskeletal: Present: myalgias. Absent: abnormal gait, arthralgias, back pain, joint swelling, limited range of motion, muscle weakness - Integumentary/Breasts Integumentary: Absent: alopecia, erythema, lesions, pruritus, rash, jaundice - Neurological Neurological: Present: focal weakness (reports weakness on the right side of her body compared to the left.), paresthesias (she complains of paresthesias primarily involving the right upper extremity.), weakness. Absent: abnormal gait, abnormal movements, abnormal speech, confusion, convulsions, dizziness, frequent falls, headache(s), loss of vision, memory loss, numbness, tremor(s) - Psychiatric Psychiatric: Absent: abnormal sleep pattern, anxiety, depression - Endocrine Endocrine: Absent: cold intolerance, flushing, heat intolerance, palpitations - Hematologic/Lymphatic Hematologic/Lymphatic: Absent: easy bleeding, easy bruising, lymphadenopathy - Allergic/Immunologic Allergic/Immunologic: Absent: urticaria Medications Home Medications Medication Instructions Recorded Confirmed Type Xanax (alprazolam) 0.25 mg tablet See Label Instructions PO BID PRN 01/08/17 History melatonin 5 mg capsule 5 mg PO HS cap 01/08/17 06/22/17 History Ascorbic Acid [Vitamin C] 1,000 mg PO DAILY 06/22/17 06/22/17 History Morphine Sulfate [Morphine Sulfate 30 mg PO BID 06/22/17 06/22/17 History ER] Vitamin B Complex [Super B-50 1 each PO DAILY 06/22/17 06/22/17 History Complex] Latanoprost 1 drop EACH EYE HS 06/23/17 06/23/17 History Allergies Allergy/AdvReac Type Severity Reaction Status Date / Time metronidazole Allergy Unknown Verified 12/04/16 16:41 Results IRU - Labs Labs: I have reviewed acute care laboratory findings, radiologic imaging, echocardiogram and providers notes. Exam Vital Signs: Temperature 98.4 F 06/25/17 17:08 Pulse Rate 65 06/25/17 17:08 Respiratory Rate 16 06/25/17 17:08 Blood Pressure 176/83 H 06/25/17 17:08 Pulse Oximetry 96 06/25/17 17:08 Height/Weight/BMI: Weight 68.9 kg - Constitutional Present: no acute distress, well nourished, well developed, average body habitus , cooperative - Routine HEENT Exam Head: Present: normocephalic, atraumatic. Absent: cushingoid faces, abrasion, laceration, hematoma Eye: Present: EOMI, PERRL. 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 - Routine Neck Exam Present: supple, trachea midline. Absent: full ROM (history of cervical spine fusion), lymphadenopathy, thyromegaly, tenderness, swelling - Routine Chest/Breast/Axilla Exam Chest wall: Absent: tenderness, mass Axillae: Absent: lymphadenopathy, mass - Routine Respiratory Exam Present: CTA bilaterally. Absent: accessory muscle use, decreased breath sounds , prolonged expiratory phase, rales, respiratory distress, rhonchi, stridor, wheezes, crackles, distant breath sounds - Routine Cardiovascular Exam Present: RRR, S1, S2, no murmur. Absent: gallop, S3, S4, click, irregular rhythm - Routine Abdominal Exam Present: soft, normoactive bowel sounds, non distended, non tender. Absent: rebound, guarding, firm, rigid, organomegaly, mass, hernia, wound - Routine Extremities Exam Present: no edema, non tender, pulses intact, normal capillary refill. Absent: cyanosis, clubbing - Routine Back/Spine/Pelvis Exam Back/Spine: Present: full ROM. Absent: scoliosis, kyphosis - Routine Skin Exam Present: intact, dry, warm. 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 Absent: normal speech (has very mild slurred speech. This may be chronic and related to her Bradford's palsy more than the current stroke.) - Routine Psychiatric Exam Present: normal affect, normal thought process, cooperative, good insight, good judgment. Absent: depressed, anxious Sepsis Assessment - Evaluation Confirmed Suspected Infection: No SIRS Criteria: none IRU A/P (1) CVA (cerebral vascular accident) Qualifiers: CVA mechanism: thrombosis Precerebral and cerebral artery: middle cerebral artery Laterality of affected vessel: right Qualified Code(s): I63.311 - Cerebral infarction due to thrombosis of right middle cerebral artery Current visit: No Status: Acute She will be carefully monitored for any progression of stroke including difficulty swallowing, respiratory deficit etc. (2) Benign essential hypertension Current visit: Yes Status: Chronic Blood pressures had been running high about 180. These will be monitored carefully and medications adjusted as needed to prevent further hypertension and avoid hypotension. (3) Chronic neck and back pain Current visit: Yes Status: Chronic She does have chronic reduced range of motion of neck as well as chronic neck and back pain. She is on morphine for this. This may be a barrier to her functional recovery in view of the reduced range of motion as well as chronic pain. DVT Prophylaxis: SCD's, Lovenox Resuscitation Status: Do Not Resuscitate - Course Hospital Course: Daniel Murray MD: - Interventions to Obtain Goals PT Treatment Plan: Balance/Proprioception, Functional Activities, Gait Training , Patient/Family Education OT Treatment Plan: ADL (Basic Care), Balance Training, Pt./Family Education Goals Progress/Modifications: An individualized multidisciplinary approach will be undertaken to allow this patient to return to her former level of functioning. She will require physical therapy, occupational therapy, 24 rehabilitation nursing to monitor neurologic deficits and blood pressure as well as medical supervision.
--- NOTE | 2017-06-25 17:40 | IRU 24Hr Post Admit Eval ---
24 Hr Post Admission Physical - Relevant Changes Relevant Changes: No Reviewed: I have reviewed the patient's information and concur with the finding and results of the pre-admission screen. Certification: I certify the patient for rehabilitation. - Patient Condition (1) CVA (cerebral vascular accident) Status: Acute Qualifiers: CVA mechanism: thrombosis Precerebral and cerebral artery: middle cerebral artery Laterality of affected vessel: right Qualified Code(s): I63.311 - Cerebral infarction due to thrombosis of right middle cerebral artery Code(s): I63.9 - Cerebral infarction, unspecified Classification: Present on IRF Admission, IRF Tx That Should Address Diagnosis, Diagnosis Requiring Medical Follow Up (2) Benign essential hypertension Status: Chronic Code(s): I10 - Essential (primary) hypertension Classification: Present on IRF Admission, IRF Tx That Should Address Diagnosis, Diagnosis Requiring Medical Follow Up (3) Chronic neck and back pain Status: Chronic Code(s): M54.2 - Cervicalgia; M54.9 - Dorsalgia, unspecified Classification: Present on IRF Admission, IRF Tx That Should Address Diagnosis, Diagnosis Requiring Medical Follow Up - Prior Functional Status 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 at home or school, Used assistive device - Current Functional Status Current Level of Function: Current level of functioning: She is modified independent for eating but supervision level for grooming. She is supervision level for upper body dressing , moderate assistance required for lower body dressing, minimal assistance for toileting, bed/chair/wheelchair transfers, toilet transfers and walking. She is able to walk with a rolling walker 200 feet. Failed Alternative Therapy: Arrived from Acute Care Patient Requirements: The patient requires oversight by rehabilitation physician to manage their rehabilitation treatment plan and multidisciplinary approach to care that can only be provided in an IRF and requires a multidisciplinary approach to care, provided by professional PTs, OTs, STs, dieticians, RTs, rehabilitation nurses and is not available in lesser levels of care. Limitations Req: Mobility Impairment, ADL Impairment Physical Therapy Minutes: 90 Occupational Therapy Minutes: 90 Therapy: The patient is to receive therapy at least 5 days a week. - Complications/Comorbidities Impact on Functional Outcomes: Her chronic pain as well as pain medication may be an impediment to her full functional recovery. Barriers to Discharge: Weakness, Balance, Endurance, Pain Control - Plan to Avoid Complications Plan to Avoid Complications: The patient cannot receive this care in a lesser intensive setting such as Alf or Outpatient Therapy due to the patient requiring the following : Patient requires close 24 rehabilitation nursing monitoring for her recent stroke to ensure no progression of neurologic deficit. She requires monitoring of her blood pressures to ensure control and avoidance of hypertension and hypotension.
[2017-06-25] MEDS ORDERED: ACETAMINOPHEN 325 MG TABLET PO PRN (17:41)
[2017-06-25] MEDS ORDERED: FALL RISK - PHARMACY CONSULT MC ONE (18:45)
[2017-06-25 18:52] VITALS: BMI 29.6
[2017-06-25] MEDS ORDERED: SENNA + DOCUSATE TABLET PO SCH (21:00)
[2017-06-25] MEDS ORDERED: RANITIDINE 150 MG TABLET PO SCH (21:00)
[2017-06-25] MEDS ORDERED: CELECOXIB 200 MG CAPSULE PO SCH (21:00)
[2017-06-25] MEDS ORDERED: SERTRALINE 50 MG TABLET PO SCH (21:00)
[2017-06-25] MEDS: GABAPENTIN 100 MG CAPSULE PO SCH (21:48)
[2017-06-25] MEDS: AMITRIPTYLINE 10 MG TABLET PO SCH (21:48)
[2017-06-25] MEDS: LATANOPROST 0.005% EYE DROPS 2.5ml EACH EYE SCH (21:49)
[2017-06-25] MEDS: MELATONIN 5 MG TABLET PO SCH (21:49)
[2017-06-25] MEDS: SIMVASTATIN 20 MG TABLET PO SCH (21:51)
[2017-06-26] MEDS: LEVOTHYROXINE 25 MCG TABLET PO SCH (06:46)
[2017-06-26] MEDS: OMEPRAZOLE 20 MG CAPSULE PO SCH (06:46)
--- NOTE | 2017-06-26 07:57 | Consult Note ---
<Wendy Alvarez - Last Filed: 06/26/17 10:18> Consult Information - Data of Consult Consult date: 06/26/17 Requesting Physician: Daniel Murray MD Primary Care Provider: Brendan Og MD Family Provider: Brendan Og MD - Consult Narrative Reason for consult: Medical management History of present illness: Patient is an 82-year-old female who resides at [facility] in [place] in full care. She came into the emergency room on 06/22/17 due to right-sided weakness which persisted for over a day. She reported she had had a history of TIAs, but has never had a CVA. 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 She was admitted to acute care and carotid sonogram was performed and was negative. MRI showed small acute infarct in the left posterior limb internal capsule, MCA territory. Echo showed no thrombus or mass. Normal LV systolic function with ejection fraction of 66%. LVH. Mitral annulus calcification with mild mitral regurg. Aortic sclerosis with trace of aortic insufficiency. Mild tricuspid regurgitation with normal estimated pulmonary artery systolic pressure of 27. Heart catheterization performed 11/08 showed ejection fraction 65%, mild to moderate coronary artery disease. Patient was started on aspirin 81 mg and Zocor 20 mg during her acute stay. Her blood pressure was controlled with increasing her home dose of losartan from 50 mg to 100 mg. She did have some improvement in her strength during her acute stay. She continues to have some numbness in the right middle finger and the right foot. She was admitted to IRU 06/25/17 for further rehabilitation. Her home medications as recorded on her SEP from the retirement are as follows : Amlodipine 5 mg daily Amitriptyline 10 mg daily at bedtime Vitamin C at thousand milligrams daily Calcium carbonate 600 mg daily Celebrex 200 mg twice a day Duloxetine 60 mg daily Neurontin 100 mg 3 times a day Latanoprost 1 drop each eye at bedtime Levothyroxine 25 g daily Losartan 50 mg daily L-lysine 1000 milligrams daily Milk of magnesia 30 mg daily Melatonin 5 mg at bedtime MS Contin ER 30 mg twice a day Multivitamin daily [place]-3 1 g twice a day Omeprazole 20 mg daily Potassium chloride 20 mEq twice a day Ranitidine 150 mg twice a day Senna/docusate 2 tabs twice a day PRN medications include: Acetaminophen 650 mg every 5 hours when necessary Alprazolam 0.125-0.25 mg by mouth twice a day when necessary Hydromorphone 4 mg by mouth 3 times a day when necessary Changes made during her acute hospital stay: Losartan increased from 50 mg to 100 mg daily. (For improved blood pressure control.) Aspirin 81 mg 1 daily was started. (For secondary stroke prevention.) Simvastatin 20 mg 1 daily was started. (For secondary stroke prevention.) Sertraline 50 mg at at bedtime was discontinued on discharge. (Due to coadministration of Cymbalta and Elavil and risk of serotonin syndrome.) Celecoxib 200 mg twice a day was discontinued on discharge. (Due to recent stroke and increased thrombolic risk.) Ranitidine 150 twice a day was discontinued on discharge. (Due to discontinuation of Celebrex and she is on omeprazole.) PFSH Medical History HTN (hypertension) H/o Hepatitis A Chronic back and neck pain (DDD) Hyperlipidemia Hypothyroid OA (osteoarthritis of the spine) H/o Rheumatic fever Surgical History: BRITTANY/BSO, tubal ligation, bladder suspension 3, cholecystectomy, appendectomy, C-spine fusion, bilateral cataract removal, right knee replacement, bilateral carpal tunnel surgery Family History: Father-history unknown. Patient was killed when patient was 4 years old. Mother-coronary artery disease. NC at age 49. Hypertension Sister-pacemaker, osteoporosis Sister-dementia - Social History Smoking status: Never smoker Substance use type: does not use Alcohol intake frequency: does not drink Housing: retirement Current occupational status: retired Social history: PCP-Dr. Og Review of Systems All systems PM: 10-point ROS was reviewed, no additional remarkable complaints except - Musculoskeletal Musculoskeletal: Present: abnormal gait (r/t stroke) - Neurological Neurological: Present: numbness (R hand and R foot), weakness (R sided - leg worse than arm) Medications Home Medications Medication Instructions Recorded Confirmed Type Xanax (alprazolam) 0.25 mg tablet See Label Instructions PO BID PRN 01/08/17 History melatonin 5 mg capsule 5 mg PO HS cap 01/08/17 06/25/17 History Ascorbic Acid [Vitamin C] 1,000 mg PO DAILY 06/22/17 06/25/17 History Morphine Sulfate [Morphine Sulfate 30 mg PO BID 06/22/17 06/25/17 History ER] Vitamin B Complex [Super B-50 1 each PO DAILY 06/22/17 06/25/17 History Complex] Latanoprost 1 drop EACH EYE HS 06/23/17 06/25/17 History Potassium Chloride [Klor-Con M20] 20 meq PO BIDWM 06/25/17 06/25/17 History Sennosides [Natural Senna Laxative] 8.6 mg PO BID 06/25/17 06/25/17 History Sertraline [Zoloft] 50 mg PO HS 06/25/17 06/25/17 History Allergies Allergy/AdvReac Type Severity Reaction Status Date / Time metronidazole Allergy Unknown Verified 12/04/16 16:41 Exam Vital Signs: Temperature 97.8 F 06/26/17 07:01 Pulse Rate 69 06/26/17 07:01 Respiratory Rate 16 06/26/17 07:01 Blood Pressure 163/72 H 06/26/17 07:01 Pulse Oximetry 94 06/26/17 07:01 Height/Weight/BMI: Height 1.52 m Weight 68.9 kg Body Mass Index 29.6 - Constitutional Present: no acute distress, well nourished, well developed - Routine HEENT Exam Head: Present: normocephalic, atraumatic ENT: Present: mucous membranes moist - Routine Neck Exam Present: supple. Absent: lymphadenopathy, thyromegaly - Routine Respiratory Exam Present: CTA bilaterally. Absent: wheezes - Routine Cardiovascular Exam Present: RRR, S1, S2. Absent: murmur - Routine Abdominal Exam Present: soft, normoactive bowel sounds, non distended. Absent: tenderness - Routine Extremities Exam Present: no edema, normal capillary refill - Routine Skin Exam Present: dry, warm - Routine Neurological Exam Present: alert, oriented X3, facial asymmetry (secondary to residual effects of history of Bradford's palsy), normal speech Equal him specialist strength, full range of motion of the right upper extremity, but with weakness compared to the left. Right leg with decreased strength compared to the left. She is able to walk with a walker. - Routine Psychiatric Exam Present: normal affect, normal thought process, cooperative Results - Labs CBC & Chem 7: 06/26/17 03:55 06/26/17 03:55 - Echocardiogram Echocardiogram: Date of Exam: 06/22/17 Type of Exam(s): US echo doppler complete DATE OF PROCEDURE June 25, 2017 This is a two-dimensional echo with spectral Doppler, color-flow and M-mode. It was obtained in a patient with CVA. Left atrial dimension is normal. Left ventricular end-diastolic dimension is normal. Left ventricular wall thickness is increased. LV systolic function is normal with ejection fraction of about 66%. Right atrium is normal. Right ventricle is normal. Aortic root dimension is normal. Mitral annulus is calcified. Mitral valve leaflets are normal with mild mitral regurgitation. Aortic valve shows fibrocalcific changes with no stenosis. Trace of aortic insufficiency is present. Tricuspid valve shows mild tricuspid regurgitation with normal estimated pulmonary artery systolic pressure of 27. Pulmonary valve shows no pulmonary insufficiency. There is no pericardial effusion. Grossly, there is no intracardiac thrombus or mass. IMPRESSION 1. Grossly, no intracardiac thrombus or mass. 2. Normal LV systolic function with ejection fraction of 66%. 3. Concentric left ventricular hypertrophy. 4. Mitral annulus calcification with mild mitral regurgitation. 5. Aortic sclerosis with trace of aortic insufficiency. 6. Mild tricuspid regurgitation with normal estimated pulmonary artery systolic pressure of 27. Assessment and Plan (1) CVA (cerebral vascular accident) Current visit: No Status: Acute Assessment and Plan: Assessment CVA - with right-sided weakness Leukopenia with elevated globulin and lymphocyte count Chronic diagnoses: Gait instability - increased with right sided weakness Coronary artery disease Hypertension Hyperlipidemia Macrocytic anemia Chronic back and neck pain OA (osteoarthritis of the spine) Hypothyroidism H/o Hepatitis A H/o Rheumatic fever Plan Agree with admission to IRU for further rehabilitation. Dr. Murray to manage rehabilitation treatments and pain management. Medication changes during her acute stay are reviewed. See history of present illness. Monitor blood pressure closely. Monitor for side effects to statins as she's had muscle aches in the past when being treated with a statin. Monitor for worsening pain off of Celebrex. Monitor for GERD symptoms given her ranitidine was discontinued. Continue on telemetry to monitor for A. fib given her recent CVA. Lovenox for DVT prophylaxis. Dr. Seay has put in a consult for Dr. Shields given her leukopenia, elevated globulin and lymphocyte count. Peripheral smear, protein electrophoresis and immunoglobulin panel are pending. Dr. Og to resume care upon discharge. Thank you for the consult. We will continue to follow patient along with you during her stay. Hospital Course Summary Disclaimer: The visit summary below is not to be considered part of the above Progress Note. Hospital Course: Assessment CVA - with right-sided weakness Leukopenia with elevated globulin and lymphocyte count Chronic diagnoses: Gait instability - increased with right sided weakness Coronary artery disease Hypertension Hyperlipidemia Macrocytic anemia Chronic back and neck pain OA (osteoarthritis of the spine) Hypothyroidism H/o Hepatitis A H/o Rheumatic fever 06/26/17 Hospitalist consult Agree with admission to IRU for further rehabilitation. Dr. Murray to manage rehabilitation treatments and pain management. Medication changes during her acute stay are reviewed. See history of present illness. Monitor blood pressure closely. Monitor for side effects to statins as she's had muscle aches in the past when being treated with a statin. Monitor for worsening pain off of Celebrex. Monitor for GERD symptoms given her ranitidine was discontinued. Continue on telemetry to monitor for A. fib given her recent CVA. Lovenox for DVT prophylaxis. Dr. Seay has put in a consult for Dr. Shields given her leukopenia, elevated globulin and lymphocyte count. Peripheral smear, protein electrophoresis and immunoglobulin panel are pending. Dr. Og to resume care upon discharge. Thank you for the consult. We will continue to follow patient along with you during her stay. <DawoodRadha - Last Filed: 06/26/17 21:46> Consult Information - Data of Consult Requesting Physician: Daniel Murray MD Primary Care Provider: Brendan Og MD Family Provider: Brendan Og MD [facility] Patient Stated Medical History Transient Ischemic Attacks ( Yes TIA) Rheumatic Fever Yes Constipation Yes: at times Gastrointestinal Bleeding Yes Ulcer Yes Hx Incontinence Yes Hx Urinary Tract Infection Yes Other Musculoskeletal Yes: chronic neck and back pain Clostridium Difficile Yes Shingles Yes: summer 2016 on [facility] Medical History Unilateral weakness (Acute Medical) CVA (cerebral vascular accident) (Acute Medical) Benign essential hypertension (Chronic Medical) Chronic neck and back pain (Chronic Medical) CAD (coronary artery disease) (Acute Medical) HTN (hypertension) (Acute Medical) Hepatitis (Acute Medical) Herniated disc (Acute Medical) Hyperlipidemia (Acute Medical) Hypothyroid (Acute Medical) OA (osteoarthritis of the spine) (Acute Medical) Rheumatic fever (Acute Medical) Scarlet fever (Acute Medical) Exam Vital Signs: Temperature 98.4 F 06/26/17 15:00 Pulse Rate 74 11/28/17 16:01 Respiratory Rate 16 06/26/17 15:00 Blood Pressure 150/77 H 06/26/17 15:00 Pulse Oximetry 91 06/26/17 15:00 Height/Weight/BMI: Height 1.52 m Weight 68.9 kg Body Mass Index 29.6 Results - Labs CBC & Chem 7: 06/26/17 03:55 06/26/17 03:55 Assessment and Plan (1) CVA (cerebral vascular accident) Current visit: No Status: Acute Assessment and Plan: 06/26/2017-I reviewed this chart, the patient history, and the SCHOOL COMMISSIONER's/PA's documented findings as above. We discussed and formulated the assessment and plan as above with the additions below.-Dr. Seay The patient was seen this evening. She has no complaints other than a new cold sore on her left upper lip. She has had them off and on in the past. She denies any oral lesions in her mouth. She states she is doing well with therapy. She denied any chest pains or lightheadedness. She does state she feels a little worn out. She is eating and drinking well. She denies any constipation. She denies any difficulties breathing. She denies any pain. On exam she is alert and oriented and in no acute distress. HEENT reveals sclerae to be anicteric and pupils are equal. She has some right facial droop which is chronic. She has a small ulcer on her right upper lip. Neck is supple. Chest is clear to auscultation. Cardiovascular reveals a regular rate and rhythm. Abdomen is soft and nontender. Extremities are free of edema. Strength in the upper extremities is fairly equal at 4+ to 5 over 5. She has mild decreased strength in the right leg compared to the left leg. Continue with current care plan as noted above. Will add zovirax cream topically for oral herpes lesion. Discussed leukopenia with Dr. Shields. The patient also has neutropenia. We'll need to monitor for infection. Hospital Course Summary Disclaimer: The visit summary below is not to be considered part of the above Progress Note.
[2017-06-26] MEDS: ASPIRIN 81 MG CHEWABLE TABLET PO SCH (08:48)
[2017-06-26] MEDS: ENOXAPARIN 40 MG/0.4 ML INJECTION SQ SCH (08:48)
[2017-06-26] MEDS: CALCIUM CARBONATE 600 MG TABLET PO SCH (08:49)
[2017-06-26] MEDS: VITAMIN B COMPLEX + C TABLET PO SCH (08:49)
[2017-06-26] MEDS: AMLODIPINE 5 MG TABLET PO SCH (08:49)
[2017-06-26] MEDS: OMEGA-3 ACID ESTERS 1 GM CAPSULE PO SCH ×2 (08:49→21:30)
[2017-06-26] MEDS: ASCORBIC ACID 500 MG TABLET PO SCH (08:50)
[2017-06-26] MEDS: DULOXETINE 60 MG CAPSULE PO SCH (08:50)
[2017-06-26] MEDS: GABAPENTIN 100 MG CAPSULE PO SCH ×3 (08:50→21:30)
[2017-06-26] MEDS: LOSARTAN 100 MG TABLET PO SCH (08:51)
[2017-06-26] MEDS: LYSINE 500 MG TABLET PO SCH (08:51)
[2017-06-26] MEDS: SENNA + DOCUSATE TABLET PO SCH ×2 (08:55→21:32)
[2017-06-26] MEDS ORDERED: OMEGA-3 ACID ESTERS 1 GM CAPSULE PO SCH (09:00)
--- NOTE | 2017-06-26 10:43 | IRU Progress Note ---
- Subjective/Serverity of Illness Date: 06/26/17 Opal reports continued back pain which is worsened as she is up and about. This is present in the neck and upper back. This is chronic. She does have history of previous cervical spine fusion surgery. She denies any chest pain or shortness of breath. Appetite is reasonable. She states that she is eating well. She needs to have a bowel movement. She was given milk of magnesia this morning apparently. Update on medical problems we are monitoring and managing as follows: 1. Recent left hemispheric CVA: Reports that the longer she walks the week or she gets in the right leg. 2. Hypertension: Losartan was increased from 50 up to 100 mg while on acute. Blood pressures are running a bit higher at the present time and these will be monitored. May need additional medication. We'll work with the hospitalists in this regard. 3. History of myalgias with statin. Does not have any new muscle weakness except that attributed to the CVA. Denies any myalgias at present. 4. Chronic pain. We will add on a heating pad. 5. Leukopenia plus elevated globulins. Additional tests are pending including protein electrophoresis etc. Exam Vital Signs: Temperature 97.8 F 06/26/17 07:01 Pulse Rate 73 06/26/17 07:13 Respiratory Rate 16 06/26/17 07:01 Blood Pressure 163/72 H 06/26/17 07:01 Pulse Oximetry 94 06/26/17 07:01 Height/Weight/BMI: Height 1.52 m Weight 68.9 kg Body Mass Index 29.6 Comments: The patient is awake, alert and oriented and in no acute distress. Pupils are equal. The neck is supple. Chest: Clear to auscultation bilaterally. Cor: RR with no gallop, click nor murmur Abd: soft with normo-active bowel sounds. There are no masses, no tenderness and no guarding. Extremities: No edema is noted. Neurologic: Did not do formal neurologic exam today. However her chronic right face droop is again identified. Appears to have adequate strength present in the upper extremities. Does report weakness in right lower extremity with prolonged walking. IRU A/P (1) CVA (cerebral vascular accident) Qualifiers: CVA mechanism: thrombosis Precerebral and cerebral artery: middle cerebral artery Laterality of affected vessel: right Qualified Code(s): I63.311 - Cerebral infarction due to thrombosis of right middle cerebral artery Current visit: No Status: Acute Does report worsening right lower extremity weakness the longer she walks. However this is very common and I do not think represents extension of the stroke. Denies headaches. Denies visual changes. (2) Benign essential hypertension Current visit: Yes Status: Chronic Blood pressures are reviewed and are running a bit higher. Losartan was artery increased recently. We will continue to monitor and adjust meds as need be. (3) Chronic neck and back pain Current visit: Yes Status: Chronic We will add on a heating pad as needed. DVT Prophylaxis: SCD's, Lovenox Resuscitation Status: Do Not Resuscitate - Course Hospital Course: Daniel Murray MD: 06/26/17 10:44 She is settling into therapy nicely. Increased right lower extremity weakness with activity. Blood pressures running a bit high. Neck and back pain noted. - Interventions to Obtain Goals PT Treatment Plan: Balance/Proprioception, Functional Activities, Gait Training , Patient/Family Education OT Treatment Plan: ADL (Basic Care), Balance Training, Pt./Family Education, Ther. Exercise for ADL Goals Progress/Modifications: Time spent with patient and on floor reviewing data and documentin min Barriers to dismissal: Endurance, back and neck pain, balance Medical decision-making: At this time her blood pressures are reviewed and are running a bit high. Considered changing medications. However we recently increased losartan so we will observe these for the time being. No evidence of neurologic decline although does report right lower extremity weakness with prolonged walking. Tolerating therapy reasonably well. We will continue current medications. We will add on a heating pad as needed.
--- NOTE | 2017-06-26 10:48 | IRU Plan of Care ---
IRU Overall Plan of Care - Date Date: 06/26/17 - Patient Impairments (1) CVA (cerebral vascular accident) Qualifiers: CVA mechanism: thrombosis Precerebral and cerebral artery: middle cerebral artery Laterality of affected vessel: right Qualified Code(s): I63.311 - Cerebral infarction due to thrombosis of right middle cerebral artery Code(s): I63.9 - Cerebral infarction, unspecified Status: Acute Classification: Present on IRF Admission, IRF Tx That Should Address Diagnosis, Diagnosis Requiring Medical Follow Up (2) Benign essential hypertension Code(s): I10 - Essential (primary) hypertension Status: Chronic Classification: Present on IRF Admission, IRF Tx That Should Address Diagnosis, Diagnosis Requiring Medical Follow Up (3) Chronic neck and back pain Code(s): M54.2 - Cervicalgia; M54.9 - Dorsalgia, unspecified Status: Chronic Classification: Present on IRF Admission, IRF Tx That Should Address Diagnosis, Diagnosis Requiring Medical Follow Up - Relevant Changes Relevant Changes: No Reviewed: I have reviewed the patient's information and concur with the finding and results of the pre-admission screen. Certification: I certify the patient for rehabilitation. - Medical Prognosis Medical Prognosis: Good Vital Signs: Last Vital Signs Temp 97.8 F 06/26/17 07:01 Pulse 73 06/26/17 07:13 Resp 16 06/26/17 07:01 BP 163/72 H 06/26/17 07:01 Pulse Ox 94 06/26/17 07:01 - Anticipated Interventions Anticipated Interventions: The patient requires inpatient IRF care for PT and OT for residuals remaining from left MCA CVA resulting in muscular weakness and strength deficits. An individualized overall plan of care has been developed after careful review of the patient's preadmission screening, post admission physician evaluation and assessments of all therapy disciplines and/or other pertinent clinicians involved in treating the patient. This indicates medical necessity and rehabilitation necessity have been established through a thorough review of all available medical information. Strength Deficits: Right Upper Extremity, Right Lower Extremity - Current Functional Status Failed Alternative Therapy: Arrived from Acute Care Patient Requires: The patient requires oversight by rehabilitation physician to manage their rehabilitation treatment plan and multidisciplinary approach to care that can only be provided in an IRF and requires a multidisciplinary approach to care, provided by professional PTs, OTs, STs, rehabilitation nurses, and may require STs, dieticians, and RTS. This is not available in lesser levels of care. Physical Therapy Minutes: 90 Occupational Therapy Minutes: 90 Therapy: The patient is to receive therapy at least 5 days a week. - Anticipated LOS/Outcomes Anticipated Functional Outcome: Expected functional improvements include: -- Modified independant to independant ambulation with or without assistive device -- Modified independant to independant ADL's with or without assistive device -- Return to pre-morbid level of mobility -- Maximize level of mobility and ADL's to decrease burden on any caregiver involved with this patient's care Anticipated Length of Stay (days): 5 Anticipated DC Destination: Half-Way/Facility Home Safety Plan: The patient will be provided with the development of a Home Safety Plan for return to a home or home-like environment and and to ensure safety post discharge. - Plan to Avoid Complications Barriers to Attaining Goals: Weakness, Endurance, Pain Control Plan to Avoid Complications: The patient cannot receive this care in a lesser intensive setting such as Correction or Outpatient Therapy due to the patient requiring the following : Patient requires a multidisciplinary approach in view of her elevated blood pressures and recent stroke requiring 24 hour rehabilitation nursing monitoring for neurologic events as well as control of blood pressure and back pain.
--- NOTE | 2017-06-26 21:21 | Progress Note ---
Exam Vital signs: Temperature 98.4 F 06/26/17 15:00 Pulse Rate 74 06/26/17 16:01 Respiratory Rate 16 06/26/17 15:00 Blood Pressure 150/77 H 06/26/17 15:00 Pulse Oximetry 91 06/26/17 15:00 Oncology Results - Labs CBC & Chem 7: 06/26/17 03:55 06/26/17 03:55 Labs: Short CBC 06/26/17 Range/Units 03:55 WBC 2.6 L (4.5-11.0) T/MM3 Hgb 11.1 L (12-16) GM/DL Hct 33.3 L (36-46) % Plt Count 159 (130-400) T/MM3 BMP 06/26/17 03:55 Sodium 139 Potassium 3.7 Chloride 102 Carbon Dioxide 31 H BUN 17.0 Creatinine 0.7 Glucose 97 Calcium 8.6 Assessment and Plan Assessment and Plan: Consult received, chart reviewed. Neutropenia with ANC of 1.0 and WBC of 2.6. Globulins elevated at 4.0. Work up ordered with SPE, Quant immunoglobulins, Free K and L light chains. Could be collagen vascular disease. B 12 borderline at 406. Ordered MMA and Homocysteine to follow up on testing. Will see on 06/28/17 with full note at that time. - Time Spent With Patient Total time spent is greater than 50% in coordination of care (as documented) at patient's floor/unit and/or counseling patient: less than 15 minutes
[2017-06-26] MEDS: SIMVASTATIN 20 MG TABLET PO SCH (21:30)
[2017-06-26] MEDS: AMITRIPTYLINE 10 MG TABLET PO SCH (21:30)
[2017-06-26] MEDS: LATANOPROST 0.005% EYE DROPS 2.5ml EACH EYE SCH (21:31)
[2017-06-26] MEDS: MELATONIN 5 MG TABLET PO SCH (21:42)
[2017-06-26] MEDS: ACYCLOVIR 5% OINT 5gm TP SCH (22:41)
[2017-06-27] MEDS: LEVOTHYROXINE 25 MCG TABLET PO SCH (06:30)
[2017-06-27] MEDS: OMEPRAZOLE 20 MG CAPSULE PO SCH (06:31)
[2017-06-27] MEDS: ACYCLOVIR 5% OINT 5gm TP SCH ×5 (08:32→20:28)
[2017-06-27] MEDS: AMLODIPINE 5 MG TABLET PO SCH (08:33)
[2017-06-27] MEDS: ASCORBIC ACID 500 MG TABLET PO SCH (08:33)
[2017-06-27] MEDS: ASPIRIN 81 MG CHEWABLE TABLET PO SCH (08:34)
[2017-06-27] MEDS: CALCIUM CARBONATE 600 MG TABLET PO SCH (08:35)
[2017-06-27] MEDS: DULOXETINE 60 MG CAPSULE PO SCH (08:35)
[2017-06-27] MEDS: ENOXAPARIN 40 MG/0.4 ML INJECTION SQ SCH (08:36)
[2017-06-27] MEDS: GABAPENTIN 100 MG CAPSULE PO SCH ×3 (08:36→20:27)
[2017-06-27] MEDS: LOSARTAN 100 MG TABLET PO SCH (08:36)
[2017-06-27] MEDS: LYSINE 500 MG TABLET PO SCH (08:37)
[2017-06-27] MEDS: SENNA + DOCUSATE TABLET PO SCH ×2 (08:38→20:27)
[2017-06-27] MEDS: OMEGA-3 ACID ESTERS 1 GM CAPSULE PO SCH ×2 (08:38→20:27)
[2017-06-27] MEDS: VITAMIN B COMPLEX + C TABLET PO SCH (08:39)
[2017-06-27] MEDS ORDERED: PNEUMOCOCCAL 13 VACCINE 0.5ml INJECTION IM ONE (14:24)
--- NOTE | 2017-06-27 16:23 | Progress Note ---
<Wendy Alvarez - Last Filed: 06/27/17 16:18> - Date 06/27/17 Subjective: Patient is seen today sitting in her room. Her daughter is present. Patient states she is feeling very well. She has progressed past her goal per her report. She wants to know when she can go home. No chest pain or shortness of breath. Continues to have numbness to the middle right finger and the right hand feels cold. Objective Vital signs: Temperature 98.5 F 06/27/17 15:19 Pulse Rate 74 06/27/17 15:19 Respiratory Rate 16 06/27/17 15:19 Blood Pressure 140/62 H 06/27/17 15:19 Pulse Oximetry 94 06/27/17 15:19 Height/Weight/BMI: Height 1.52 m Weight 68 kg Body Mass Index 29.6 - Constitutional Present: no acute distress, well nourished, well developed - Routine Respiratory Exam Present: CTA bilaterally. Absent: wheezes - Routine Cardiovascular Exam Present: RRR, S1, S2. Absent: murmur - Routine Abdominal Exam Present: soft, normoactive bowel sounds, non distended. Absent: tenderness - Routine Extremities Exam Present: edema (trace b/l LE's), normal capillary refill - Routine Skin Exam Present: dry, warm - Routine Neurological Exam Present: alert, oriented X3 4/5 strength R upper and lower extremities compared to 5/5 on L. Strength on R is notably improving. - Routine Lymphatic Exam Lymphatic: Absent: adenopathy - Routine Psychiatric Exam Present: normal affect, cooperative Results - Labs CBC & Chem 7: 06/26/17 03:55 06/26/17 03:55 Assessment and Plan (1) CVA (cerebral vascular accident) Current visit: No Status: Acute Assessment and Plan: Assessment CVA - with right-sided weakness Leukopenia with elevated globulin and lymphocyte count Chronic diagnoses: Gait instability - increased with right sided weakness Coronary artery disease Hypertension Hyperlipidemia Macrocytic anemia Chronic back and neck pain OA (osteoarthritis of the spine) Hypothyroidism H/o Hepatitis A H/o Rheumatic fever Plan Dr Shields will see patient tomorrow and review labs. Labs are still pending at present. BP elevated - will increase amlodipine to 10mg qd. Continue losartan at 100mg qd. Patient progressing well. Hospital Course Summary Disclaimer: The visit summary below is not to be considered part of the above Progress Note. Hospital Course: Assessment CVA - with right-sided weakness Leukopenia with elevated globulin and lymphocyte count Chronic diagnoses: Gait instability - increased with right sided weakness Coronary artery disease Hypertension Hyperlipidemia Macrocytic anemia Chronic back and neck pain OA (osteoarthritis of the spine) Hypothyroidism H/o Hepatitis A H/o Rheumatic fever 06/26/17 Hospitalist consult Agree with admission to IRU for further rehabilitation. Dr. Murray to manage rehabilitation treatments and pain management. Medication changes during her acute stay are reviewed. See history of present illness. Monitor blood pressure closely. Monitor for side effects to statins as she's had muscle aches in the past when being treated with a statin. Monitor for worsening pain off of Celebrex. Monitor for GERD symptoms given her ranitidine was discontinued. Continue on telemetry to monitor for A. fib given her recent CVA. Lovenox for DVT prophylaxis. Dr. Seay has put in a consult for Dr. Shields given her leukopenia, elevated globulin and lymphocyte count. Peripheral smear, protein electrophoresis and immunoglobulin panel are pending. Dr. Og to resume care upon discharge. Thank you for the consult. We will continue to follow patient along with you during her stay. <DawoodTavonRadha L - Last Filed: 06/27/17 19:42> - Date 06/27/17 Objective Vital signs: Temperature 98.5 F 06/27/17 15:19 Pulse Rate 68 06/27/17 16:00 Respiratory Rate 16 06/27/17 15:19 Blood Pressure 140/62 H 06/27/17 15:19 Pulse Oximetry 94 06/27/17 15:19 Height/Weight/BMI: Height 1.52 m Weight 68 kg Body Mass Index 29.6 Results - Labs CBC & Chem 7: 06/26/17 03:55 06/26/17 03:55 Assessment and Plan (1) CVA (cerebral vascular accident) Current visit: No Status: Acute Assessment and Plan: 06/27/2017-I reviewed this chart, the patient history, and the DRYING MACHINE OPERATOR's/PA's documented findings as above. We discussed and formulated the assessment and plan as above with the additions below.-Dr. Seay Patient states she's feeling well. She think she is almost ready to go home. She feels like she is doing well with physical therapy. She occasionally feels a little lightheaded or unsteady. We'll need to monitor closely. On exam she is alert and in no acute distress. Chest is clear to auscultation. Cardiovascular reveals a regular rate and rhythm. Impression and plan Continue with current treatment. Monitor for signs of orthostasis. We'll check orthostatic vitals. Lab is still pending regarding patient's leukopenia, neutropenia, elevated globulin and elevated lymphocyte percentage. Hospital Course Summary Disclaimer: The visit summary below is not to be considered part of the above Progress Note.
[2017-06-27] MEDS: MELATONIN 5 MG TABLET PO SCH (20:26)
[2017-06-27] MEDS: AMITRIPTYLINE 10 MG TABLET PO SCH (20:27)
[2017-06-27] MEDS: LATANOPROST 0.005% EYE DROPS 2.5ml EACH EYE SCH (20:27)
[2017-06-27] MEDS: SIMVASTATIN 20 MG TABLET PO SCH (20:27)
[2017-06-28] MEDS: LEVOTHYROXINE 25 MCG TABLET PO SCH (06:42)
[2017-06-28] MEDS: OMEPRAZOLE 20 MG CAPSULE PO SCH (06:42)
[2017-06-28] MEDS ORDERED: PNEUMOCOCCAL VAC ADMIN CHARGE INJ ONE (07:36)
[2017-06-28] MEDS: AMLODIPINE 10 MG TABLET PO SCH (08:19)
[2017-06-28] MEDS: ASPIRIN 81 MG CHEWABLE TABLET PO SCH (08:19)
[2017-06-28] MEDS: ACYCLOVIR 5% OINT 5gm TP SCH ×5 (08:20→21:23)
[2017-06-28] MEDS: ASCORBIC ACID 500 MG TABLET PO SCH (08:21)
[2017-06-28] MEDS: CALCIUM CARBONATE 600 MG TABLET PO SCH (08:21)
[2017-06-28] MEDS: LYSINE 500 MG TABLET PO SCH (08:22)
[2017-06-28] MEDS: GABAPENTIN 100 MG CAPSULE PO SCH ×3 (08:22→21:26)
[2017-06-28] MEDS: OMEGA-3 ACID ESTERS 1 GM CAPSULE PO SCH ×2 (08:22→21:26)
[2017-06-28] MEDS: LOSARTAN 100 MG TABLET PO SCH (08:22)
[2017-06-28] MEDS: DULOXETINE 60 MG CAPSULE PO SCH (08:22)
[2017-06-28] MEDS: VITAMIN B COMPLEX + C TABLET PO SCH (08:23)
[2017-06-28] MEDS: SENNA + DOCUSATE TABLET PO SCH ×2 (08:23→21:24)
[2017-06-28] MEDS: ENOXAPARIN 40 MG/0.4 ML INJECTION SQ SCH (10:00)
--- NOTE | 2017-06-28 13:39 | IRU Progress Note ---
- Subjective/Serverity of Illness Date: 06/28/17 Ms. Iglesias is extremely cooperative with therapy. Unfortunately she tends to move and walk a bit fast and there are some safety concerns at present. Continues to complain of numbness and tingling in the right hand. Does have reduced strength in the right upper extremity. Denies any nausea or vomiting and she reports a good appetite. She has had no chest pain or shortness of breath. Her blood pressures are reviewed and are running a bit high. Exam Vital Signs: Temperature 98.0 F 06/28/17 08:00 Pulse Rate 77 06/28/17 08:00 Respiratory Rate 18 06/28/17 08:00 Blood Pressure 169/71 H 06/28/17 08:00 Pulse Oximetry 93 06/28/17 08:00 Height/Weight/BMI: Height 1.52 m Weight 68 kg Body Mass Index 29.6 Comments: The patient is awake, alert and oriented and in no acute distress. Pupils are equal. The neck is supple. Chest: Clear to auscultation bilaterally. Cor: RR with no gallop, click nor murmur Abd: soft with normo-active bowel sounds. There are no masses, no tenderness and no guarding. Extremities: No edema is noted. There is some reduced strength right upper extremity compared to left on flexion at the elbow as well as reimbursement coordinator strength. Results IRU - Labs Labs: Reviewed other providers notes. Protein electrophoresis remains pending IRU A/P (1) CVA (cerebral vascular accident) Qualifiers: CVA mechanism: thrombosis Precerebral and cerebral artery: middle cerebral artery Laterality of affected vessel: right Qualified Code(s): I63.311 - Cerebral infarction due to thrombosis of right middle cerebral artery Current visit: No Status: Acute She has had no progression of her stroke. She is cooperative with therapy. Tends to move a bit fast and safety concerns are noted. (2) Benign essential hypertension Current visit: Yes Status: Chronic Blood pressure is running a bit on the high side. This will be monitored. She is on losartan. (3) Chronic neck and back pain Current visit: Yes Status: Chronic DVT Prophylaxis: SCD's, Lovenox Resuscitation Status: Do Not Resuscitate - Course Hospital Course: Daniel Murray MD: 06/26/17 10:44 She is settling into therapy nicely. Increased right lower extremity weakness with activity. Blood pressures running a bit high. Neck and back pain noted. 06/28/17 13:39 She has improved with therapy. Blood pressures reviewed and are running high at times. Safety concerns noted by therapy. - Interventions to Obtain Goals PT Treatment Plan: Balance/Proprioception, Functional Activities, Gait Training , Patient/Family Education, Therapeutic Exercise OT Treatment Plan: ADL (Basic Care), Balance Training, Pt./Family Education, Ther. Exercise for ADL
--- NOTE | 2017-06-28 13:42 | IRU Team Meeting ---
IRU Team Meeting - Nursing Bladder Assistive Devices Utilized:: Absorbent Pad Bladder Management Level of Assist: Modified Independent Bladder Frequency of Accidents: No accidents Bowel Assistive Devices Utilized:: Medication, Absorbent Pad Bowel Management Level of Assist: Modified Independent Bowel Frequency of Accidents: No accidents Vital Signs: Vital Signs - 24 hr 06/27/17 15:19 06/27/17 16:00 06/27/17 19:45 Temperature 98.5 F 98.5 F Pulse Rate 74 68 65 Respiratory Rate 16 16 Blood Pressure 140/62 H 141/66 H Pulse Oximetry 94 93 06/27/17 21:16 06/27/17 21:17 06/27/17 21:18 Temperature Pulse Rate Respiratory Rate Blood Pressure 158/75 H 169/86 H 166/79 H Pulse Oximetry 06/28/17 00:00 06/28/17 08:00 Temperature 98.0 F Pulse Rate 81 77 Respiratory Rate 18 Blood Pressure 169/71 H Pulse Oximetry 93 Current Medications: Acetaminophen (Tylenol) 650 mg PO Q5H PRN PRN Reason: Discomfort Acyclovir (Zovirax Oint) 1 applic TP 5XD [facility] Last Admin: 06/28/17 13:07 Dose: 1 applic Amitriptyline HCl (Elavil) 10 mg PO HS [facility] Last Admin: 06/27/17 20:27 Dose: 10 mg Amlodipine Besylate (Norvasc) 10 mg PO DAILY [facility] Last Admin: 06/28/17 08:19 Dose: 10 mg Ascorbic Acid (Vitamin C) 1,000 mg PO DAILY [facility] Last Admin: 06/28/17 08:21 Dose: 1,000 mg Aspirin (Asa) 81 mg PO DAILY [facility] Last Admin: 06/28/17 08:19 Dose: 81 mg Calcium Carbonate (Caltrate) 600 mg PO DAILY [facility] Last Admin: 06/28/17 08:21 Dose: 600 mg Duloxetine HCl (Cymbalta) 60 mg PO DAILY [facility] Last Admin: 06/28/17 08:22 Dose: 60 mg Enoxaparin Sodium (Lovenox) 40 mg SQ DAILY [facility] Last Admin: 06/28/17 10:00 Dose: 40 mg Gabapentin (Neurontin) 100 mg PO TID [facility] Last Admin: 06/28/17 08:22 Dose: 100 mg Latanoprost (Xalatan) 1 drops EACH EYE [facility] Last Admin: 06/27/17 20:27 Dose: 1 drops Levothyroxine Sodium (Synthroid) 25 mcg PO ACB [facility] Last Admin: 06/28/17 06:42 Dose: 25 mcg Losartan Potassium (Cozaar) 100 mg PO DAILY [facility] Last Admin: 06/28/17 08:22 Dose: 100 mg Lysine Acetate (L-Lysine) 1,000 mg PO DAILY [facility] Last Admin: 06/28/17 08:22 Dose: 1,000 mg Magnesium Hydroxide (Mom) 30 ml PO 1500 [facility] Last Admin: 06/27/17 15:14 Dose: 30 ml Melatonin (Melatonin) 5 mg PO HS [facility] Last Admin: 06/27/17 20:26 Dose: 5 mg Morphine Sulfate (Ms Contin) 30 mg PO BID [facility] Last Admin: 06/28/17 08:24 Dose: 30 mg Multivitamins (Total B + C) 1 tab PO DAILY [facility] Last Admin: 06/28/17 08:23 Dose: 1 tab [id number] Ethyl Esters (Lovaza) 1 gm PO BID [facility] Last Admin: 06/28/17 08:22 Dose: 1 gm Omeprazole (Prilosec) 20 mg PO ACB [facility] Last Admin: 06/28/17 06:42 Dose: 20 mg Potassium Chloride (K-Dur) 20 meq PO BIDWM [facility] Last Admin: 06/28/17 08:20 Dose: 20 meq Senna/Docusate Sodium (Senna Plus Tablet) 2 tab PO BID [facility] Last Admin: 06/28/17 08:23 Dose: 2 tab Simvastatin (Zocor) 20 mg PO HS [facility] Last Admin: 06/27/17 20:27 Dose: 20 mg Current Medical Issues: recent CVA, hypertension Comments: I certify that I personally led the interdisciplinary team meeting and agree with comments, barriers and goals indicated. Team meeting was held in the patient's room with the patient and the following family members present: patient alone Patient has a good appetite. She is very cooperative. She denies any new pains but does have chronic neck and back pain. Has had no nausea nor vomiting. Reports tingling of the right upper extremity as before. Telemetry has been stable. Serum protein electrophoresis pending. On acyclovir ointment for sore on upper lip. - Physical Therapy Bed, Chair, Wheelchair Transfer Assist: Modified Independent Ambulation Ability: Stand By Assist/Supervision Ambulation Distance: 250 Stair Climbing Ability: Stand By Assist/Supervision Number of Steps Climbed: 12 Car Transfer Ability: Stand By Assist/Supervision Comments: She is demonstrating improved gait mechanics strength and endurance. However she has some rapid movement and there are concerns about safety. Recommend continuing another couple of days. - Occupational Therapy Eating Ability: Independent Grooming Ability: Modified Independent Bathing Ability: Stand By Assist/Supervision Upper Body Dressing Ability: Stand By Assist/Supervision Lower Body Dressing Ability: Stand By Assist/Supervision Tub Transfer Assist: Stand By Assist/Supervision Toileting Assist: Modified Independent Toilet Transfer Assist: Modified Independent Comments: She is very pleasant and cooperative with therapy. She continues to progress toward goals. There is some concern regarding safety issues and awareness. - Goals Occupational Therapy Goals: Goals: 06/28. 1.) LB dressing w/ mod I. 2.)d/c planning - Barriers to Discharge Barriers to Attaining Goals: Pain Control - Care Plan Anticipated Length of Stay (days): 2 Anticipated DC Destination: Custodial/Facility I have led this team conference and agree with the plan.
--- NOTE | 2017-06-28 16:24 | Consult Note ---
<Bill Shields - Last Filed: 06/29/17 08:43> Oncology HPI - Data of Consult Requesting Physician: Daniel Murray MD Primary Care Provider: Brendan Og MD Family Provider: Brendan Og MD [facility] Patient Stated Medical History Transient Ischemic Attacks ( Yes TIA) Rheumatic Fever Yes Constipation Yes: at times Gastrointestinal Bleeding Yes Ulcer Yes Hx Incontinence Yes Hx Urinary Tract Infection Yes Other Musculoskeletal Yes: chronic neck and back pain Clostridium Difficile Yes Shingles Yes: summer 2016 [facility] Medical History Unilateral weakness (Acute Medical) CVA (cerebral vascular accident) (Acute Medical) Benign essential hypertension (Chronic Medical) Chronic neck and back pain (Chronic Medical) CAD (coronary artery disease) (Acute Medical) HTN (hypertension) (Acute Medical) Hepatitis (Acute Medical) Herniated disc (Acute Medical) Hyperlipidemia (Acute Medical) Hypothyroid (Acute Medical) OA (osteoarthritis of the spine) (Acute Medical) Rheumatic fever (Acute Medical) Scarlet fever (Acute Medical) Medications Home Medications Medication Instructions Recorded Confirmed Type Xanax (alprazolam) 0.25 mg tablet See Label Instructions PO BID PRN 01/08/17 History melatonin 5 mg capsule 5 mg PO HS cap 01/08/17 06/25/17 History Ascorbic Acid [Vitamin C] 1,000 mg PO DAILY 06/22/17 06/25/17 History Morphine Sulfate [Morphine Sulfate 30 mg PO BID 06/22/17 06/25/17 History ER] Vitamin B Complex [Super B-50 1 each PO DAILY 06/22/17 06/25/17 History Complex] Latanoprost 1 drop EACH EYE HS 06/23/17 06/25/17 History Potassium Chloride [Klor-Con M20] 20 meq PO BIDWM 06/25/17 06/25/17 History Sennosides [Natural Senna Laxative] 8.6 mg PO BID 06/25/17 06/25/17 History Allergies Allergy/AdvReac Type Severity Reaction Status Date / Time metronidazole Allergy Unknown Verified 12/04/16 16:41 Exam Vital signs: Temperature 97.6 F 06/29/17 08:26 Pulse Rate 74 06/29/17 08:26 Respiratory Rate 16 06/29/17 08:26 Blood Pressure 145/67 H 06/29/17 08:26 Pulse Oximetry 95 06/29/17 08:26 Oncology Results - Labs CBC & Chem 7: 06/26/17 03:55 06/26/17 03:55 Labs: Laboratory Tests 06/26/17 03:55 IgG 2305 H IgA 63 L IgM 40 Peripheral smear shows slight normochromic normocytic anemia with moderate leukopenia due to neutropenia see comment diagnostic comment: Manual differential is performed and shows 33.5% neutrophils 59% lymphocytes 2.5% monocytes 4.5% eosinophils and 0.5% basophils. No circulating blasts or dysplastic cells are seen. Significant numbers of schistocytes and/or micro- spherocytes are not seen. Polychromasia does not appear increased, indicating a production deficiency. Clinical correlation is suggested. Assessment and Plan Assessment and Plan: Patient seen at 8:30 am on 06/28/17. I agree with documentation of Racheal Diaz and participated in the development of the plan of care of this patient. Leukopenia with elevated globulins. IgG is elevated at 2300 with slightly low IgA at 63 and normal IgM. This is worrisome for a plasma cell disorder. Serum protein electrophoresis, immunofixation, free kappa and lambda light chain analysis has been ordered. It is currently pending. Will evaluate for further etiology after the results of this test comes in. The elevated globulins could be related to autoimmune diseases such as lupus, rheumatoid arthritis or to have plasma cell dyscrasia such as monoclonal gammopathy. Either of these could cause leukopenia. Lupus can cause arterial thrombosis through the production of anticardiolipin or anti-beta 2 glycoprotein antibodies. We will check these tests. Patient will be going home tomorrow. We will see patient back in office to review results and direct further testing. 2. CVA X 2 Currently in rehab for PT. Improving. <EmilyVijaya L - Last Filed: 06/29/17 16:44> Oncology HPI - Data of Consult Patient: new to practice Consult date: 06/28/17 Requesting Physician: Daniel Murray MD Primary Care Provider: Brendan Og MD Family Provider: Brendan Og MD - Consult Narrative Reason for consult: leukopenia History of present illness: 82 yr. old new patient to Dr. Shields was admitted to [facility] from the ER following acute right sided weakness/noted to have acute CVA. Her labs showed leukopenia with elevated globulin and elevated lymphocytes. She is recovering nicely and is now in rehab. Has right sided weakness, but able to ambulate with walker, feed self,etc. Has multiple comorbidities of CAD, HTN, hypercholesterolemia, macrocytic anemia, OA, and chronic neck/back pain. At time of intake is reclining in hospital bed, alone in room. Is alert and oriented X3. Denies pain currently. Denies fever, chills, night sweats or recent infection. Reports history of frequent UTI's, denies recent UTI. Eating/ drinking well, no diarrhea, constipation, dysuria, hematuria. No new achespain- reports chronic neck/back pain. Review of Systems - Constitutional Constitutional: Present: fatigue. Absent: chills, night sweats, weight loss - EENT Eyes: Absent: change in vision Mouth/Throat: Absent: sore throat - Cardiovascular Cardiovascular: Present: edema. Absent: chest pain, dyspnea on exertion - Respiratory Respiratory: Absent: cough, dyspnea - Gastrointestinal Gastrointestinal: Absent: abdominal pain, change in bowel habits, constipation, diarrhea - Genitourinary Genitourinary: Present: as per HPI. Absent: dysuria, hematuria - Musculoskeletal Musculoskeletal: Present: as per HPI, arthralgias, back pain, neck pain - Integumentary/Breasts Integumentary: Absent: pruritus, rash - Neurological Neurological: Absent: dizziness, headache(s) - Hematologic/Lymphatic Hematologic/Lymphatic: Present: anemia PFSH Patient Stated Medical History Transient Ischemic Attacks ( Yes TIA) Rheumatic Fever Yes Constipation Yes: at times Gastrointestinal Bleeding Yes Ulcer Yes Hx Incontinence Yes Hx Urinary Tract Infection Yes Other Musculoskeletal Yes: chronic neck and back pain Clostridium Difficile Yes Shingles Yes: summer 2016 on back [facility] Medical History Unilateral weakness (Acute Medical) CVA (cerebral vascular accident) (Acute Medical) Benign essential hypertension (Chronic Medical) Chronic neck and back pain (Chronic Medical) CAD (coronary artery disease) (Acute Medical) HTN (hypertension) (Acute Medical) Hepatitis (Acute Medical) Herniated disc (Acute Medical) Hyperlipidemia (Acute Medical) Hypothyroid (Acute Medical) OA (osteoarthritis of the spine) (Acute Medical) Rheumatic fever (Acute Medical) Scarlet fever (Acute Medical) Surgical History: BRITTANY/BSO, tubal ligation, bladder suspension 3, cholecystectomy, appendectomy, C-spine fusion, bilateral cataract removal, right knee replacement, bilateral carpal tunnel surgery Family History: father-had brain tumor 3 maternal aunts of unknown cancer MGF- of stomach cancer age 50 - Social History Smoking status: Never smoker Substance use type: does not use Alcohol intake: never Current residence: [place]term Exam Vital signs: Temperature 97.8 F 06/28/17 16:00 Pulse Rate 78 06/28/17 16:00 Respiratory Rate 18 06/28/17 16:00 Blood Pressure 125/63 06/28/17 16:00 Pulse Oximetry 94 06/28/17 16:00 - Constitutional no acute distress, well nourished, well developed, cooperative - Routine HEENT Exam Head: Present: normocephalic Eye: Present: EOMI ENT: Present: mucous membranes moist (mild right sided eye/mouth drooping) - Routine Neck Exam Present: supple. Absent: lymphadenopathy - Routine Respiratory Exam Present: CTA bilaterally - Routine Cardiovascular Exam Present: RRR. Absent: no murmur - Routine Abdominal Exam Present: soft, normoactive bowel sounds, non distended. Absent: tenderness - Routine Extremities Exam Present: edema (trace rashmi. LE). Absent: tenderness - Routine Skin Exam Present: intact, dry, warm - Routine Neurological Exam Present: alert, oriented X3 - Routine Psychiatric Exam Present: normal affect, normal thought process Oncology Results - Labs CBC & Chem 7: 06/26/17 03:55 06/29/17 09:15
[2017-06-28] MEDS: MELATONIN 5 MG TABLET PO SCH (21:24)
[2017-06-28] MEDS: AMITRIPTYLINE 10 MG TABLET PO SCH (21:25)
[2017-06-28] MEDS: SIMVASTATIN 20 MG TABLET PO SCH (21:25)
[2017-06-28] MEDS: LATANOPROST 0.005% EYE DROPS 2.5ml EACH EYE SCH (21:26)
[2017-06-29 05:01] VITALS: RESP 16; O2SAT 95
[2017-06-29] MEDS: OMEPRAZOLE 20 MG CAPSULE PO SCH (06:15)
[2017-06-29] MEDS: LEVOTHYROXINE 25 MCG TABLET PO SCH (06:15)
[2017-06-29 08:28] VITALS: TEMP 97.6
[2017-06-29] MEDS: CALCIUM CARBONATE 600 MG TABLET PO SCH (08:28)
[2017-06-29] MEDS: LOSARTAN 100 MG TABLET PO SCH (08:29)
[2017-06-29] MEDS: AMLODIPINE 10 MG TABLET PO SCH (08:29)
[2017-06-29] MEDS: ASCORBIC ACID 500 MG TABLET PO SCH (08:29)
[2017-06-29] MEDS: VITAMIN B COMPLEX + C TABLET PO SCH (08:29)
[2017-06-29] MEDS: DULOXETINE 60 MG CAPSULE PO SCH (08:29)
[2017-06-29] MEDS: ASPIRIN 81 MG CHEWABLE TABLET PO SCH (08:30)
[2017-06-29] MEDS: SENNA + DOCUSATE TABLET PO SCH (08:30)
[2017-06-29] MEDS: OMEGA-3 ACID ESTERS 1 GM CAPSULE PO SCH (08:31)
[2017-06-29] MEDS: LYSINE 500 MG TABLET PO SCH (08:31)
[2017-06-29] MEDS: GABAPENTIN 100 MG CAPSULE PO SCH ×2 (08:31→14:05)
[2017-06-29] MEDS: ACYCLOVIR 5% OINT 5gm TP SCH ×3 (09:10→19:26)
[2017-06-29] MEDS: ENOXAPARIN 40 MG/0.4 ML INJECTION SQ SCH (09:10)
[2017-06-29 09:25] VITALS: BP 163/68; PULSE 77
--- NOTE | 2017-06-29 10:57 | IRU Progress Note ---
- Subjective/Serverity of Illness Date: 06/29/17 Opal is looking forward to going back to the [facility] today. She has done well with therapy. She is independent/modified independent functioning. She has slowed down and has less safety concerns. I did review her lab indicating a monoclonal spike. She has appointment to follow-up with Dr. Shields. Beta 2 glycoprotein pending. Denies any chest pain or shortness of breath. Her bowels are moving. She has purchased a 4 wheeled walker and will be using that back at the [facility]. Exam Vital Signs: Temperature 97.6 F 06/29/17 08:26 Pulse Rate 77 06/29/17 09:00 Respiratory Rate 16 06/29/17 08:26 Blood Pressure 163/68 H 06/29/17 09:00 Pulse Oximetry 95 06/29/17 08:26 Height/Weight/BMI: Height 1.52 m Weight 68 kg Body Mass Index 29.6 Comments: The patient is awake, alert and oriented and in no acute distress. Pupils are equal. The neck is supple. Chest: Clear to auscultation bilaterally. Cor: RR with no gallop, click nor murmur Abd: soft with normo-active bowel sounds. There are no masses, no tenderness and no guarding. Extremities: No edema is noted. Neurologic status is stable. Denies headaches. Continues to have long-term neck and back pain and is on MS Contin. Continues to have some numbness and tingling particularly involving the right upper extremity as before. 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 Results IRU - Labs Labs: I reviewed her labs. Several values are still pending. IRU A/P (1) CVA (cerebral vascular accident) Qualifiers: CVA mechanism: thrombosis Precerebral and cerebral artery: middle cerebral artery Laterality of affected vessel: right Qualified Code(s): I63.311 - Cerebral infarction due to thrombosis of right middle cerebral artery Current visit: No Status: Acute Her neurologic status is stable. She has done well with therapy. (2) Benign essential hypertension Current visit: Yes Status: Chronic Blood pressures are reviewed and are borderline elevated. She is newly on losartan 100 mg daily. I asked her to make sure they monitor this at the [facility] on a regular basis. (3) Chronic neck and back pain Current visit: Yes Status: Chronic DVT Prophylaxis: SCD's, Lovenox Resuscitation Status: Do Not Resuscitate - Course Hospital Course: Daniel Murray MD: 06/26/17 10:44 She is settling into therapy nicely. Increased right lower extremity weakness with activity. Blood pressures running a bit high. Neck and back pain noted. 06/28/17 13:39 She has improved with therapy. Blood pressures reviewed and are running high at times. Safety concerns noted by therapy. 06/29/17 10:58 She has done well with therapy. Safety concerns are minimized. Blood pressures continue to be borderline elevated. She is newly on losartan 100 mg daily. - Interventions to Obtain Goals PT Treatment Plan: Balance/Proprioception, Functional Activities, Gait Training , Patient/Family Education, Therapeutic Exercise OT Treatment Plan: ADL (Basic Care), Balance Training, Pt./Family Education, Ther. Exercise for ADL Goals Progress/Modifications: Anticipate dismissal today to [facility].
--- NOTE | 2017-06-29 11:04 | Extended Care Facility Orders ---
Admission Orders Admit to:: ICF Allergies/Adverse Reactions: Allergies metronidazole Allergy (Unknown, Verified 12/04/16 16:41) Admitting Diagnosis: stroke Admitting Physician: Daniel Murray MD Attending Physician: Daniel Murray MD Code Status: Do Not Resuscitate Anticiapted Length of Stay: greater than 30 days Rehab Potential: fair Rehab Prognosis: fair Diet: 06/25/17 Dinner Regular Diet [DIET] Diet Modifications: Wound/Incision Care: N/A May use Facility Protocol or Standing Orders: Yes May have flu vaccine: Yes (Had one by report in April) Evaluations/Treatment: as needed Long-Term Certification: nursing home/OT/PT not required at this time. - Additional Information In Event of Arrest: Do Not Start CPR Resident is Aware of Diagnosis: Yes Referrals: Bill Shields MD [Physician] - (Dr. Reno Shields on 07/05/17 at 8:00 am for follow-up. [address] [place] [address]) Brendan Og MD [Family Provider] - (f/u in 1 week)
--- NOTE | 2017-06-29 17:12 | Discharge Summary ---
Discharge Information Date of admission: 06/25/17 16:50 Anticipated date of discharge: 06/29/17 Attending Physician: Daniel Murray MD Primary care physician: Brendan Og MD Consults: 06/25/17 17:18 Physician Consult [CONS] Routine Consulting Provider: Radha Seay Reason For Exam: medical management Ordering Provider has Notified Switch Technician: Yes 06/25/17 17:42 Physician Consult [CONS] Routine Consulting Provider: Bill Shields Reason For Exam: leukopenia, elevated lymp percent, elev globululin Ordering Provider has Notified Switch Technician: Yes - Discharge Diagnosis (1) CVA (cerebral vascular accident) Status: Acute (2) Benign essential hypertension Status: Chronic (3) Chronic neck and back pain Status: Chronic 1. 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 Benign essential hypertension 3. Chronic neck and back pain - Laboratory Labs: 06/26/17 03:55 06/29/17 09:15 History of Present Illness HPI: 06/29/17 17:08 Ms. Iglesias initially reported some right-sided weakness on 06/21/2017 after she was doing her devotions. Could not get up out of her chair easily. She did not want anyone to know at that time but ultimately was seen in the emergency department on 06/22/2017. Initial CT scan of the head was negative. MRI of the brain on 06/23/2017 demonstrated a left posterior limb internal capsule subacute CVA. Likely this was either thrombotic or embolic. Carotid Dopplers were done failing to reveal significant hemodynamic stenosis. Echocardiogram did not reveal evidence of source of embolus. She was started on simvastatin and aspirin and transferred to the inpatient rehabilitation unit on 06/25/2017. Hospital Course This is a general summary of the patient's hospital course. For more details refer to the complete medical record. Upon admission to the inpatient rehabilitation unit, she was assessed an individualized program of occupational therapy and physical therapy with 24 rehabilitation nursing and medical supervision was designed for her. She was also followed by the hospitalist service. Her blood pressures were monitored and were a bit borderline elevated. At the time dismissal they're still running in the 160 range. She was started on losartan while on acute (or losartan was increased to 100 mg daily). This will be continued as an outpatient and her blood pressures will need to be monitored carefully. She was seen by occupational therapy. Eating initially was modified independent level and ultimately was independent. Grooming was initially contact-guard assistance and ultimately independent level. Bathing ability was initially standby assistance and ultimately modified independent. Upper body dressing was minimal assistance initially and upon dismissal able to be performed independently. Lower body dressing was initially standby assistance and ultimately modified independent. Toileting assistance was initially standby assistance and ultimately modified independent. Toilet transfer assistance was initially standby assistance and ultimately modified independent. Bed/chair/ wheelchair transfers were initially standby assistance and ultimately modified independent. Physical therapy also worked with the patient. She made gains as follows: Bed/ chair/wheelchair transfers were initially standby assistance and ultimately modified independent. Toileting assistance was ultimately independent level and toilet transfer assistance was modified independent. Car transfers were standby assistance. Ambulating ability with standby assistance at over 600 feet. She was able to climb 12 steps at standby assistance level. She had some impulsivity and there are some safety concerns initially. However this improved with therapy. She will be followed up by Dr. Brendan Og. She is going home on simvastatin as well as losartan and aspirin as well as her other medications. She was stable to return to her apartment at [facility] at the time of dismissal. Hospital course: Assessment CVA - with right-sided weakness Leukopenia with elevated globulin and lymphocyte count Chronic diagnoses: Gait instability - increased with right sided weakness Coronary artery disease Hypertension Hyperlipidemia Macrocytic anemia Chronic back and neck pain OA (osteoarthritis of the spine) Hypothyroidism H/o Hepatitis A H/o Rheumatic fever 06/26/17 Hospitalist consult Agree with admission to IRU for further rehabilitation. Dr. Murray to manage rehabilitation treatments and pain management. Medication changes during her acute stay are reviewed. See history of present illness. Monitor blood pressure closely. Monitor for side effects to statins as she's had muscle aches in the past when being treated with a statin. Monitor for worsening pain off of Celebrex. Monitor for GERD symptoms given her ranitidine was discontinued. Continue on telemetry to monitor for A. fib given her recent CVA. Lovenox for DVT prophylaxis. Dr. Seay has put in a consult for Dr. Shields given her leukopenia, elevated globulin and lymphocyte count. Peripheral smear, protein electrophoresis and immunoglobulin panel are pending. Dr. Og to resume care upon discharge. Thank you for the consult. We will continue to follow patient along with you during her stay. Time spent with patient: 25 - 35 minutes Discharge Plan - Med Rec/Dispo Referrals/Follow Up: Bill Shields MD [Physician] - (Dr. Reno Shields on 07/05/17 at 8:00 am for follow-up. [address] [place] [address]) Brendan Og MD [Family Provider] - (f/u in 1 week) Karen Instructions: Enoxaparin (By injection), Fall Prevention (GEN), Stroke ( GEN) Prescriptions: New Amlodipine [Norvasc] 10 mg PO DAILY #0 tab Losartan [Cozaar] 100 mg PO DAILY tab Acyclovir Oint [Zovirax Oint] 1 applicatio TP 5XD PRN #1 tube PRN Reason: Rash Continue Morphine Sulfate [Morphine Sulfate ER] 30 mg PO BID Ascorbic Acid [Vitamin C] 1,000 mg PO DAILY Aspirin Chewable [ASA] 81 mg PO DAILY tab.chew Milk of Magnesia [Mom] 30 ml PO DAILY #0 ml [place]-3/Dha/Epa/Fish Oil [Fish Oil 1,000 mg Softgel] 1 cap PO BID #0 Vitamin B Complex [Super B-50 Complex] 1 each PO DAILY Latanoprost 1 drop EACH EYE HS Acetaminophen [Tylenol] 650 mg PO Q5H PRN tab PRN Reason: Discomfort Simvastatin [Zocor] 20 mg PO HS tab Potassium Chloride [Klor-Con M20] 20 meq PO BIDWM Sennosides [Natural Senna Laxative] 8.6 mg PO BID melatonin 5 mg capsule 5 mg PO HS cap Cymbalta (duloxetine) 60 mg capsule,delayed release 60 mg PO DAILY #30 cap calcium carbonate 600 mg calcium (1,500 mg) tablet 600 mg PO DAILY #30 tab levothyroxine 25 mcg tablet 25 mcg PO ACB #30 tab hydromorphone 4 mg tablet 4 mg PO TID PRN #90 tab PRN Reason: pain amitriptyline 10 mg tablet 10 mg PO HS #30 tab Xanax (alprazolam) 0.25 mg tablet See Label Instructions PO BID PRN PRN Reason: anxiety Prilosec (Omeprazole) 20 mg capsule,delayed release 20 mg PO ACB #30 cap Neurontin (gabapentin) 100 mg capsule 100 mg PO TID #90 cap lysine 500 mg tablet 1,000 mg PO DAILY #60 tab Discontinued Losartan [Cozaar] 100 mg PO DAILY tab Sertraline [Zoloft] 50 mg PO HS Celebrex (Celecoxib) 200 mg capsule 200 mg PO BID #60 cap Norvasc (amlodipine) 5 mg tablet 5 mg PO DAILY #30 tab Zantac (Ranitidine) 150 mg tablet 150 mg PO BID #60 tab - Disposition 04 To [facility] Home/Facility - Dismissal Complete Discharge Instructions are:: Complete
--- NOTE | 2017-06-29 17:15 | Letter to Referring Physician ---
Dear Dr. Og, This is a brief note to bring you up-to-date on the status of Opal Iglesias and her stay on the acute inpatient rehabilitation unit at [facility]. As you are likely aware, this patient was admitted to the acute care hospital on 06/22/17 for an acute right sided weakness also limited determined to be secondary to an acute thrombotic or embolic event involving the left internal capsule. Carotids were essentially negative and echocardiogram did not reveal a source of embolus. She was started on aspirin and simvastatin and her losartan was increased to 100 mg daily. They were stabilized while on the acute level and admitted to inpatient rehabilitation unit and [facility] on June 25, 2017. While on inpatient rehabilitation, this patient was seen by occupational therapy and physical therapy and improved overall in their functional ability. We monitored her blood pressure carefully while on inpatient rehabilitation as well as her neurologic status. Her blood pressures continued to be a bit elevated at around 160 and this will need to be followed up as an outpatient as well. Please see a copy of the history and physical examination as well as discharge summary enclosed with this letter for further details. Thank you for allowing us to be involved in this nice patient's care. Please contact me directly should you have any questions regarding their stay on the inpatient rehabilitation unit. Sincerely, Daniel Murray M.D.
== END 2017-06-29 14:50 | DRG 57 ==
PROVIDERS: ADMIT Internal Medicine; ATTEND Internal Medicine